=== PATIENT | female | born 1945 | race Caucasian/White ===

== ENCOUNTER 2020-05-29 08:44 | Outpatient (CLI) | payer MEDICARE, OTHER, SELFPAY ==
--- NOTE | ~2020-05-29 | MM_ITS ---
EXAMINATION: MM screening [facility] BI w kenrick HISTORY: Screening mammogram TECHNIQUE: Craniocaudal and mediolateral oblique 3-D tomosynthesis images were obtained and synthetic 2-D images were generated. CAD analysis was submitted and interpreted. COMPARISON: 03/11/2019, 02/05/2018, 10/15/2016 BREAST PARENCHYMAL COMPOSITION: There are scattered areas of fibroglandular density. FINDINGS: Scattered benign-appearing calcifications are present. There is no evidence of suspicious m ass, calcification, or architectural distortion to suggest malignancy in either breast. There has bee n no suspicious interval change. IMPRESSION: 1. No mammographic evidence of malignancy. 2. Recommend routine screening mammography in one year. BI-RADS Category 2: Benign finding(s). Reviewed, dictated and finalized at location A.
== END 2020-05-29 08:45 | disposition home or self-care (01) ==
PROVIDERS: PCP Internal Medicine; Visit Provider Internal Medicine
DX: Z12.31 Encounter for screening mammogram for malignant neoplasm of breast (principal)
CPT/HCPCS: 77063; 77067

== ENCOUNTER 2020-07-14 11:25 | Outpatient (CLI) | payer MEDICARE, SELFPAY ==
[2020-07-14 11:35] LABS: Basophils Absolute Auto 0.01 K/mm3 (0.00-0.10); Basophils Percent Auto 0.2 % (0.0-1.0); Eosinophils Absolute Auto 0.06 K/mm3 (0.02-0.50); Hematocrit 39.9 % (35.0-42.0); Hemoglobin 13.7 g/dL (11.7-13.8); Immature Granulocyte Absolute 0.02 K/mm3 (0.00-0.00); Immature Granulocyte Percent A 0.3 % (0.0-0.0); Lymphocytes Absolute Auto 1.72 K/mm3 (1.10-4.50); Lymphocytes Percent Auto 28.1 % (18.0-42.0); Mean Corpuscular HGB Conc 34.3 g/dL (32.0-36.0); Mean Corpuscular Hemoglobin 33.2 pg (27.0-31.0); Mean Corpuscular Volume 96.6 fL (78.0-102.0); Mean Platelet Volume 10.5 fl (9.2-11.8); Monocytes Absolute Auto 0.54 K/mm3 (0.10-0.90); Monocytes Percent Auto 8.8 % (2.0-11.0); Neutrophils Absolute Auto 3.8 K/mm3 (1.7-7.2); Neutrophils Percent Auto 61.6 % (50.0-70.0); Platelet Count Result 262 K/mm3 (150-420); Red Blood Count 4.13 M/mm3 (4.20-5.40); Red Cell Distribution Width 13.6 % (11.6-14.4); White Blood Count 6.1 K/mm3 (4.8-10.8)
[2020-07-14 12:43] LABS: Erythrocyte Sedimentation Rate 15 mm/hr (0-20)
[2020-07-14 12:50] LABS: Alanine Aminotransferase 53 U/L (14-59); Albumin Level 3.9 g/dL (3.4-5.0); Alkaline Phosphatase 65 U/L (46-116); Anion Gap 8 mmol/L (8-16); Aspartate Amino Transferase 31 U/L (15-37); Bilirubin,Total 0.5 mg/dL (0.00-1.00); Blood Urea Nitrogen 13 mg/dL (7-18); Calcium 8.9 mg/dL (8.5-10.1); Carbon Dioxide 31 mmol/L (21-32); Chloride 103 mmol/L (98-108); Estimated Glomerular Filt Rate > 60; Glucose 92 mg/dL (70-99); Osmolality Calculated 294 mOsm/kg (285-295); Potassium 3.8 mmol/L (3.5-5.1); Sodium 142 mmol/L (136-145); Total Protein 6.9 g/dL (6.4-8.2)
[2020-07-14 12:55] LABS: CRP < 0.2 mg/dL (0.0-0.9)
== END 2020-07-14 11:26 | disposition home or self-care (01) ==
LOC: CHSLAB 11:27
PROVIDERS: PCP Internal Medicine
DX: M06.09 Rheumatoid arthritis without rheumatoid factor, multiple sites (principal)
CPT/HCPCS: 36415; 80053; 85025; 85652; 86140

== ENCOUNTER 2020-08-23 09:55 | Outpatient (CLI) | payer MEDICARE, SELFPAY ==
[2020-08-23 10:08] LABS: Basophils Absolute Auto 0.01 K/mm3 (0.00-0.10); Basophils Percent Auto 0.2 % (0.0-1.0); Eosinophils Absolute Auto 0.08 K/mm3 (0.02-0.50); Eosinophils Percent Auto 1.7 % (1.0-6.0); Hematocrit 40.5 % (35.0-42.0); Hemoglobin 13.6 g/dL (11.7-13.8); Immature Granulocyte Absolute 0.02 K/mm3 (0.00-0.00); Immature Granulocyte Percent A 0.4 % (0.0-0.0); Lymphocytes Absolute Auto 1.79 K/mm3 (1.10-4.50); Mean Corpuscular HGB Conc 33.6 g/dL (32.0-36.0); Mean Corpuscular Hemoglobin 32.2 pg (27.0-31.0); Mean Platelet Volume 10.5 fl (9.2-11.8); Monocytes Absolute Auto 0.42 K/mm3 (0.10-0.90); Monocytes Percent Auto 8.7 % (2.0-11.0); Neutrophils Absolute Auto 2.5 K/mm3 (1.7-7.2); Platelet Count Result 255 K/mm3 (150-420); Red Blood Count 4.22 M/mm3 (4.20-5.40); Red Cell Distribution Width 12.7 % (11.6-14.4); White Blood Count 4.8 K/mm3 (4.8-10.8)
[2020-08-23 10:13] LABS: Add Urine Microscopic? NO; Appearance Urine Clear (Clear); Bilirubin Urine Negative (Negative); Blood Urine Negative (Negative); Color Urine Yellow (Yellow); Glucose Urine UA Negative (Negative); Ketones Urine Negative (Negative); Leukocyte Esterase Ur Negative LEU/UL (Negative); Nitrate Urine Negative (Negative); Protein Urine Negative (Negative); Urobilinogen Urine 0.2 mg/dL (0.2-1.0)
[2020-08-23 11:05] LABS: Alanine Aminotransferase 86 U/L (14-59); Albumin Level 4.2 g/dL (3.4-5.0); Alkaline Phosphatase 71 U/L (46-116); Anion Gap 11 mmol/L (8-16); Aspartate Amino Transferase 42 U/L (15-37); Bilirubin,Total 0.7 mg/dL (0.00-1.00); Blood Urea Nitrogen 8 mg/dL (7-18); Carbon Dioxide 28 mmol/L (21-32); Chloride 105 mmol/L (98-108); Estimated Glomerular Filt Rate > 60; Glucose 95 mg/dL (70-99); Osmolality Calculated 296 mOsm/kg (285-295); Potassium 3.9 mmol/L (3.5-5.1); Sodium 144 mmol/L (136-145)
== END 2020-08-23 09:56 | disposition home or self-care (01) ==
LOC: CHSLAB 09:59
PROVIDERS: PCP Internal Medicine
DX: M06.09 Rheumatoid arthritis without rheumatoid factor, multiple sites (principal); Z79.899 Other long term (current) drug therapy; Z51.81 Encounter for therapeutic drug level monitoring
CPT/HCPCS: 36415; 80053; 81003; 85025

== ENCOUNTER 2020-09-13 10:35 | Outpatient (CLI) | payer MEDICARE, SELFPAY ==
[2020-09-13 10:50] LABS: Add Urine Microscopic? NO; Appearance Urine Clear (Clear); Basophils Absolute Auto 0.02 K/mm3 (0.00-0.10); Basophils Percent Auto 0.4 % (0.0-1.0); Bilirubin Urine Negative (Negative); Blood Urine Negative (Negative); Color Urine Yellow (Yellow); Eosinophils Absolute Auto 0.09 K/mm3 (0.02-0.50); Eosinophils Percent Auto 1.8 % (1.0-6.0); Glucose Urine UA Negative (Negative); Hematocrit 41.2 % (35.0-42.0); Immature Granulocyte Absolute 0.01 K/mm3 (0.00-0.00); Immature Granulocyte Percent A 0.2 % (0.0-0.0); Ketones Urine Negative (Negative); Leukocyte Esterase Ur Negative LEU/UL (Negative); Lymphocytes Absolute Auto 1.83 K/mm3 (1.10-4.50); Lymphocytes Percent Auto 37.2 % (18.0-42.0); Mean Corpuscular Hemoglobin 32.7 pg (27.0-31.0); Mean Corpuscular Volume 96.3 fL (78.0-102.0); Mean Platelet Volume 11.3 fl (9.2-11.8); Monocytes Absolute Auto 0.45 K/mm3 (0.10-0.90); Monocytes Percent Auto 9.1 % (2.0-11.0); Neutrophils Absolute Auto 2.5 K/mm3 (1.7-7.2); Neutrophils Percent Auto 51.3 % (50.0-70.0); Nitrate Urine Negative (Negative); Platelet Count Result 231 K/mm3 (150-420); Protein Urine Negative (Negative); Red Blood Count 4.28 M/mm3 (4.20-5.40); Red Cell Distribution Width 12.6 % (11.6-14.4); Specific Grav Ur 1.025 (1.010-1.020); Urobilinogen Urine 0.2 mg/dL (0.2-1.0); White Blood Count 4.9 K/mm3 (4.8-10.8)
[2020-09-13 11:59] LABS: Alanine Aminotransferase 39 U/L (14-59); Albumin Level 3.9 g/dL (3.4-5.0); Alkaline Phosphatase 73 U/L (46-116); Anion Gap 10 mmol/L (8-16); Aspartate Amino Transferase 25 U/L (15-37); Bilirubin,Total 0.6 mg/dL (0.00-1.00); Blood Urea Nitrogen 12 mg/dL (7-18); Carbon Dioxide 28 mmol/L (21-32); Chloride 106 mmol/L (98-108); Estimated Glomerular Filt Rate > 60; Glucose 92 mg/dL (70-99); Osmolality Calculated 297 mOsm/kg (285-295); Sodium 144 mmol/L (136-145); Total Protein 6.9 g/dL (6.4-8.2)
== END 2020-09-13 10:36 | disposition home or self-care (01) ==
LOC: CHSLAB 10:38
PROVIDERS: PCP Internal Medicine
DX: M06.09 Rheumatoid arthritis without rheumatoid factor, multiple sites (principal); Z79.899 Other long term (current) drug therapy; Z51.81 Encounter for therapeutic drug level monitoring
CPT/HCPCS: 36415; 80053; 81003; 85025

== ENCOUNTER 2020-09-19 09:39 | Outpatient (CLI) | payer MEDICARE, SELFPAY ==
[2020-09-19 11:16] LABS: Alanine Aminotransferase 36 U/L (14-59); Albumin Level 3.8 g/dL (3.4-5.0); Alkaline Phosphatase 71 U/L (46-116); Anion Gap 8 mmol/L (8-16); Aspartate Amino Transferase 17 U/L (15-37); Bilirubin,Total 0.6 mg/dL (0.00-1.00); Blood Urea Nitrogen 15 mg/dL (7-18); Carbon Dioxide 31 mmol/L (21-32); Chloride 105 mmol/L (98-108); Estimated Glomerular Filt Rate > 60; Glucose 131 mg/dL (70-99); Osmolality Calculated 300 mOsm/kg (285-295); Potassium 3.8 mmol/L (3.5-5.1); Sodium 144 mmol/L (136-145); Total Protein 6.7 g/dL (6.4-8.2)
== END 2020-09-19 09:40 | disposition home or self-care (01) ==
LOC: CHSLAB 09:42
PROVIDERS: PCP Internal Medicine
DX: M05.09 Felty's syndrome, multiple sites (principal); Z79.899 Other long term (current) drug therapy; Z51.81 Encounter for therapeutic drug level monitoring
CPT/HCPCS: 36415; 80053

== ENCOUNTER 2020-10-10 09:26 | Outpatient (CLI) | payer MEDICARE, SELFPAY ==
[2020-10-11 14:04] LABS: SARS-CoV-2 RNA PCR Positive
== END 2020-10-10 09:27 | disposition home or self-care (01) ==
LOC: CHSLAB 09:29
PROVIDERS: PCP Internal Medicine; Visit Provider Internal Medicine
DX: U07.1 COVID-19 (principal)
CPT/HCPCS: 87635; C9803; U0003

== ENCOUNTER 2020-10-26 06:27 | Outpatient (CLI) | payer MEDICARE, SELFPAY ==
[2020-10-27 19:10] LABS: SARS-CoV-2 RNA PCR Positive
== END 2020-10-26 06:28 | disposition home or self-care (01) ==
LOC: CHSLAB 06:29
PROVIDERS: PCP Internal Medicine; Visit Provider Internal Medicine
DX: U07.1 COVID-19 (principal)
CPT/HCPCS: 87635; C9803; U0003

== ENCOUNTER 2020-12-06 08:34 | Outpatient (CLI) | payer MEDICARE, SELFPAY ==
[2020-12-07 22:47] LABS: SARS-CoV-2 RNA PCR Negative
== END 2020-12-06 08:35 | disposition home or self-care (01) ==
LOC: CHSLAB 08:40
PROVIDERS: PCP Internal Medicine; Visit Provider Internal Medicine
DX: U07.1 COVID-19 (principal)
CPT/HCPCS: 36415; 86769; C9803; U0003; U0005

== ENCOUNTER 2021-01-08 09:24 | Outpatient (CLI) | payer MEDICARE, SELFPAY ==
[2021-01-08 09:42] LABS: Basophils Absolute Auto 0.02 K/mm3 (0.00-0.10); Basophils Percent Auto 0.4 % (0.0-1.0); Eosinophils Absolute Auto 0.09 K/mm3 (0.02-0.50); Eosinophils Percent Auto 1.6 % (1.0-6.0); Hematocrit 41.2 % (35.0-42.0); Hemoglobin 13.8 g/dL (11.7-13.8); Immature Granulocyte Absolute 0.01 K/mm3 (0.00-0.00); Immature Granulocyte Percent A 0.2 % (0.0-0.0); Lymphocytes Absolute Auto 1.73 K/mm3 (1.10-4.50); Lymphocytes Percent Auto 31.6 % (18.0-42.0); Mean Corpuscular HGB Conc 33.5 g/dL (32.0-36.0); Mean Corpuscular Hemoglobin 30.7 pg (27.0-31.0); Mean Corpuscular Volume 91.6 fL (78.0-102.0); Mean Platelet Volume 10.7 fl (9.2-11.8); Monocytes Absolute Auto 0.42 K/mm3 (0.10-0.90); Monocytes Percent Auto 7.7 % (2.0-11.0); Neutrophils Absolute Auto 3.2 K/mm3 (1.7-7.2); Neutrophils Percent Auto 58.5 % (50.0-70.0); Platelet Count Result 225 K/mm3 (150-420); Red Cell Distribution Width 12.7 % (11.6-14.4); White Blood Count 5.5 K/mm3 (4.8-10.8)
[2021-01-08 09:43] LABS: Add Urine Microscopic? NO; Appearance Urine Clear (Clear); Bilirubin Urine Negative (Negative); Blood Urine Negative (Negative); Color Urine Yellow (Yellow); Glucose Urine UA Negative (Negative); Ketones Urine Negative (Negative); Leukocyte Esterase Ur Negative LEU/UL (Negative); Nitrate Urine Negative (Negative); Protein Urine Negative (Negative); Urobilinogen Urine 0.2 mg/dL (0.2-1.0)
[2021-01-08 10:58] LABS: Alanine Aminotransferase 33 U/L (14-59); Albumin Level 3.7 g/dL (3.4-5.0); Alkaline Phosphatase 78 U/L (46-116); Anion Gap 8 mmol/L (8-16); Aspartate Amino Transferase 17 U/L (15-37); Bilirubin,Total 0.5 mg/dL (0.00-1.00); Blood Urea Nitrogen 14 mg/dL (7-18); Calcium 8.9 mg/dL (8.5-10.1); Carbon Dioxide 31 mmol/L (21-32); Chloride 104 mmol/L (98-108); Estimated Glomerular Filt Rate > 60; Glucose 106 mg/dL (70-99); Osmolality Calculated 296 mOsm/kg (285-295); Potassium 3.9 mmol/L (3.5-5.1); Sodium 143 mmol/L (136-145)
== END 2021-01-08 09:25 | disposition home or self-care (01) ==
LOC: CHSLAB 09:27
PROVIDERS: PCP Internal Medicine
DX: Z79.899 Other long term (current) drug therapy (principal); M06.09 Rheumatoid arthritis without rheumatoid factor, multiple sites
CPT/HCPCS: 36415; 80053; 81003; 85025

== ENCOUNTER 2021-02-16 11:38 | Outpatient (CLI) | payer MEDICARE, SELFPAY ==
[2021-02-16 11:58] LABS: Basophils Absolute Auto 0.02 K/mm3 (0.00-0.10); Basophils Percent Auto 0.3 % (0.0-1.0); Eosinophils Absolute Auto 0.11 K/mm3 (0.02-0.50); Eosinophils Percent Auto 1.8 % (1.0-6.0); Hematocrit 39.2 % (35.0-42.0); Hemoglobin 13.1 g/dL (11.7-13.8); Immature Granulocyte Absolute 0.01 K/mm3 (0.00-0.00); Immature Granulocyte Percent A 0.2 % (0.0-0.0); Lymphocytes Absolute Auto 1.99 K/mm3 (1.10-4.50); Lymphocytes Percent Auto 33.4 % (18.0-42.0); Mean Corpuscular HGB Conc 33.4 g/dL (32.0-36.0); Mean Corpuscular Volume 92.9 fL (78.0-102.0); Mean Platelet Volume 10.9 fl (9.2-11.8); Monocytes Absolute Auto 0.44 K/mm3 (0.10-0.90); Monocytes Percent Auto 7.4 % (2.0-11.0); Neutrophils Absolute Auto 3.4 K/mm3 (1.7-7.2); Neutrophils Percent Auto 56.9 % (50.0-70.0); Platelet Count Result 269 K/mm3 (150-420); Red Blood Count 4.22 M/mm3 (4.20-5.40)
[2021-02-16 12:30] LABS: Add Urine Microscopic? NO; Appearance Urine Clear (Clear); Bilirubin Urine Negative (Negative); Blood Urine Negative (Negative); Color Urine Yellow (Yellow); Glucose Urine UA Negative (Negative); Ketones Urine Negative (Negative); Leukocyte Esterase Ur Negative (Negative); Nitrate Urine Negative (Negative); Protein Urine Negative (Negative); Specific Grav Ur <= 1.005 (1.010-1.020); Urobilinogen Urine 0.2 mg/dL (0.2-1.0)
[2021-02-16 12:34] LABS: Alanine Aminotransferase 27 U/L (14-59); Albumin Level 3.8 g/dL (3.4-5.0); Alkaline Phosphatase 81 U/L (46-116); Anion Gap 8 mmol/L (8-16); Aspartate Amino Transferase 19 U/L (15-37); Bilirubin,Total 0.5 mg/dL (0.00-1.00); Blood Urea Nitrogen 15 mg/dL (7-18); Calcium 9.1 mg/dL (8.5-10.1); Carbon Dioxide 31 mmol/L (21-32); Chloride 103 mmol/L (98-108); Estimated Glomerular Filt Rate > 60; Glucose 93 mg/dL (70-99); Osmolality Calculated 294 mOsm/kg (285-295); Sodium 142 mmol/L (136-145); Total Protein 7.1 g/dL (6.4-8.2)
[2021-02-19 13:42] LABS: NIL 0.02; Quantiferon TB Plus, 1T NEGATIVE
== END 2021-02-16 11:39 | disposition home or self-care (01) ==
LOC: CHSLAB 11:44
PROVIDERS: PCP Internal Medicine
DX: M06.09 Rheumatoid arthritis without rheumatoid factor, multiple sites (principal); Z51.81 Encounter for therapeutic drug level monitoring; Z79.899 Other long term (current) drug therapy; M48.062 Spinal stenosis, lumbar region with neurogenic claudication
CPT/HCPCS: 36415; 80053; 81003; 85025; 86480; 87086; 87088

== ENCOUNTER 2021-05-30 09:03 | Outpatient (CLI) | payer MEDICARE, SELFPAY ==
[2021-05-30 09:25] LABS: Basophils Absolute Auto 0.03 K/mm3 (0.00-0.10); Basophils Percent Auto 0.6 % (0.0-1.0); Eosinophils Percent Auto 1.9 % (1.0-6.0); Hematocrit 40.4 % (35.0-42.0); Hemoglobin 13.5 g/dL (11.7-13.8); Immature Granulocyte Absolute 0.01 K/mm3 (0.00-0.00); Immature Granulocyte Percent A 0.2 % (0.0-0.0); Lymphocytes Absolute Auto 1.92 K/mm3 (1.10-4.50); Lymphocytes Percent Auto 35.7 % (18.0-42.0); Mean Corpuscular HGB Conc 33.4 g/dL (32.0-36.0); Mean Corpuscular Hemoglobin 31.3 pg (27.0-31.0); Mean Corpuscular Volume 93.7 fL (78.0-102.0); Mean Platelet Volume 11.1 fl (9.2-11.8); Monocytes Absolute Auto 0.36 K/mm3 (0.10-0.90); Monocytes Percent Auto 6.7 % (2.0-11.0); Neutrophils Percent Auto 54.9 % (50.0-70.0); Platelet Count Result 248 K/mm3 (150-420); Red Blood Count 4.31 M/mm3 (4.20-5.40); Red Cell Distribution Width 13.5 % (11.6-14.4); White Blood Count 5.4 K/mm3 (4.8-10.8)
[2021-05-30 09:26] LABS: Add Urine Microscopic? NO; Appearance Urine Clear (Clear); Bilirubin Urine Negative (Negative); Blood Urine Negative (Negative); Color Urine Yellow (Yellow); Glucose Urine UA Negative (Negative); Ketones Urine Negative (Negative); Leukocyte Esterase Ur Negative (Negative); Nitrate Urine Negative (Negative); Protein Urine Negative (Negative); Specific Grav Ur 1.025 (1.010-1.020); Urobilinogen Urine 0.2 mg/dL (0.2-1.0)
[2021-05-30 10:13] LABS: Alanine Aminotransferase 62 U/L (14-59); Alkaline Phosphatase 76 U/L (46-116); Anion Gap 11 mmol/L (8-16); Aspartate Amino Transferase 39 U/L (15-37); Bilirubin,Total 0.5 mg/dL (0.00-1.00); Blood Urea Nitrogen 15 mg/dL (7-18); Calcium 9.4 mg/dL (8.5-10.1); Carbon Dioxide 30 mmol/L (21-32); Chloride 105 mmol/L (98-108); Cholesterol 153 mg/dL (0-200); Estimated Glomerular Filt Rate > 60; Free T3 2.87 pg/mL (2.18-3.98); Free T4 Free Thyroxine 1.11 ng/dL (0.76-1.46); Glucose 92 mg/dL (70-99); HDL Direct 57 mg/dL (40-60); LDL Cholesterol Calculated 82 mg/dL (<130); Osmolality Calculated 302 mOsm/kg (285-295); Potassium 4.2 mmol/L (3.5-5.1); Sodium 146 mmol/L (136-145); Thyroid Stimulating Hormone 1.76 uIU/mL (0.36-3.74); Total Protein 6.8 g/dL (6.4-8.2); Triglycerides 70 mg/dL (0-150)
[2021-06-02 10:20] LABS: Vitamin D 25 Hydroxy 23 ng/mL (30-100)
== END 2021-05-30 09:04 | disposition home or self-care (01) ==
LOC: CHSLAB 09:06
PROVIDERS: PCP Internal Medicine; Visit Provider Internal Medicine
DX: E03.4 Atrophy of thyroid (acquired) (principal); M06.9 Rheumatoid arthritis, unspecified; E78.2 Mixed hyperlipidemia; E55.9 Vitamin D deficiency, unspecified; M81.0 Age-related osteoporosis without current pathological fracture; I10 Essential (primary) hypertension
CPT/HCPCS: 36415; 80053; 80061; 81003; 82306; 84439; 84443; 84481; 85025

== ENCOUNTER 2021-06-04 09:24 | Outpatient (CLI) | payer MEDICARE, SELFPAY ==
--- NOTE | ~2021-06-04 | MM_ITS ---
EXAMINATION: MM screening [facility] BI w kenrick HISTORY: Screening mammogram TECHNIQUE: Craniocaudal and mediolateral oblique 3-D tomosynthesis images were obtained and synthetic 2-D images were generated. CAD analysis was submitted and interpreted. COMPARISON: 05/29/2020, 03/11/2019, 02/05/2018 BREAST PARENCHYMAL COMPOSITION: There are scattered areas of fibroglandular density. FINDINGS: Scattered benign-appearing calcifications are present. There is no evidence of suspicious m ass, calcification, or architectural distortion to suggest malignancy in either breast. There has bee n no suspicious interval change. IMPRESSION: 1. No mammographic evidence of malignancy. 2. Recommend routine screening mammography in one year. BI-RADS Category 2: Benign finding(s). Reviewed, dictated and finalized at location A.
== END 2021-06-04 09:25 | disposition home or self-care (01) ==
LOC: CHSIMG 09:24
PROVIDERS: PCP Internal Medicine; Visit Provider Internal Medicine
DX: Z12.31 Encounter for screening mammogram for malignant neoplasm of breast (principal)
CPT/HCPCS: 77063; 77067

== ENCOUNTER 2021-07-03 08:43 | Outpatient (CLI) | payer MEDICARE, SELFPAY ==
--- NOTE | 2021-08-06 09:13 | P.PCNHOL_ITS ---
Holter/Event Monitor Holter/Event Monitor Date of procedure: 07/05/21 Holter/Event Procedure: Event Monitor Indications: Palpitations Conclusion: 1. Symptoms activated only event monitor between 07/05/21-08/03/21. There are 17 available transmissions for analysis. 2. 6 of the 17 transmissions show sinus rhythm, HR range 55-75 bpm. 3. 11 of the 17 transmissions show atrial flutter/tachycardia with HR range 80- 130 bpm. 4. No significant pauses in available transmissions. 5. Patient reports symptoms of lightheadedness, heart racing, skipped beats and symptoms other than listed.
== END 2021-07-03 08:44 | disposition home or self-care (01) ==
PROVIDERS: PCP Internal Medicine; Visit Provider Internal Medicine
DX: R00.0 Tachycardia, unspecified (principal); R00.2 Palpitations
CPT/HCPCS: 99199

== ENCOUNTER 2021-08-30 10:00 | Outpatient (RCR) | payer MEDICARE, SELFPAY ==
[2021-05-25 12:58] LABS: Add Urine Microscopic? NO; Appearance Urine Clear (Clear); Bilirubin Urine Negative (Negative); Blood Urine Negative (Negative); Color Urine Yellow (Yellow); Glucose Urine UA Negative (Negative); Ketones Urine Negative (Negative); Leukocyte Esterase Ur Negative LEU/UL (Negative); Nitrate Urine Negative (Negative); Protein Urine Negative (Negative); Specific Grav Ur >= 1.030 (1.010-1.020); Urobilinogen Urine 0.2 mg/dL (0.2-1.0); pH Urine 5.5 (5.0-8.0)
[2021-05-25 13:08] LABS: Basophils Absolute Auto 0.02 K/mm3 (0.00-0.10); Basophils Percent Auto 0.4 % (0.0-1.0); Eosinophils Absolute Auto 0.11 K/mm3 (0.02-0.50); Eosinophils Percent Auto 1.9 % (1.0-6.0); Hematocrit 40.5 % (35.0-42.0); Hemoglobin 13.8 g/dL (11.7-13.8); Immature Granulocyte Absolute 0.01 K/mm3 (0.00-0.00); Immature Granulocyte Percent A 0.2 % (0.0-0.0); Lymphocytes Absolute Auto 2.44 K/mm3 (1.10-4.50); Lymphocytes Percent Auto 42.8 % (18.0-42.0); Mean Corpuscular HGB Conc 34.1 g/dL (32.0-36.0); Mean Platelet Volume 11.3 fl (9.2-11.8); Monocytes Absolute Auto 0.54 K/mm3 (0.10-0.90); Monocytes Percent Auto 9.5 % (2.0-11.0); Neutrophils Absolute Auto 2.6 K/mm3 (1.7-7.2); Neutrophils Percent Auto 45.2 % (50.0-70.0); Platelet Count Result 256 K/mm3 (150-420); Red Blood Count 4.31 M/mm3 (4.20-5.40); Red Cell Distribution Width 13.9 % (11.6-14.4); White Blood Count 5.7 K/mm3 (4.8-10.8)
[2021-05-25 13:28] LABS: Alanine Aminotransferase 39 U/L (14-59); Albumin Level 3.9 g/dL (3.4-5.0); Alkaline Phosphatase 82 U/L (46-116); Anion Gap 10 mmol/L (8-16); Aspartate Amino Transferase 16 U/L (15-37); Bilirubin,Total 0.4 mg/dL (0.00-1.00); Blood Urea Nitrogen 20 mg/dL (7-18); Calcium 9.2 mg/dL (8.5-10.1); Carbon Dioxide 30 mmol/L (21-32); Chloride 106 mmol/L (98-108); Estimated Glomerular Filt Rate > 60; Glucose 109 mg/dL (70-99); Osmolality Calculated 305 mOsm/kg (285-295); Potassium 3.9 mmol/L (3.5-5.1); Sodium 146 mmol/L (136-145); Total Protein 6.9 g/dL (6.4-8.2)
[2021-07-27 09:02] LABS: Basophils Absolute Auto 0.02 K/mm3 (0.00-0.10); Basophils Percent Auto 0.3 % (0.0-1.0); Eosinophils Absolute Auto 0.06 K/mm3 (0.02-0.50); Eosinophils Percent Auto 0.9 % (1.0-6.0); Hematocrit 39.2 % (35.0-42.0); Hemoglobin 13.2 g/dL (11.7-13.8); Immature Granulocyte Absolute 0.02 K/mm3 (0.00-0.00); Immature Granulocyte Percent A 0.3 % (0.0-0.0); Lymphocytes Absolute Auto 2.03 K/mm3 (1.10-4.50); Mean Corpuscular HGB Conc 33.7 g/dL (32.0-36.0); Mean Corpuscular Volume 95.1 fL (78.0-102.0); Mean Platelet Volume 10.8 fl (9.2-11.8); Monocytes Absolute Auto 0.48 K/mm3 (0.10-0.90); Monocytes Percent Auto 6.9 % (2.0-11.0); Neutrophils Absolute Auto 4.4 K/mm3 (1.7-7.2); Neutrophils Percent Auto 62.6 % (50.0-70.0); Platelet Count Result 259 K/mm3 (150-420); Red Blood Count 4.12 M/mm3 (4.20-5.40)
[2021-08-02 07:21] LABS: NIL 0.03 IU/mL
[2021-08-02 07:22] LABS: Quantiferon TB Plus, 1T NEGATIVE; TB2-NIL 0.01 IU/mL
[2021-08-30 13:42] LABS: Add Urine Microscopic? NO; Appearance Urine Clear (Clear); Bilirubin Urine Negative (Negative); Blood Urine Negative (Negative); Color Urine Light Yellow (Yellow); Glucose Urine UA Negative (Negative); Ketones Urine Negative (Negative); Leukocyte Esterase Ur Negative LEU/UL (Negative); Nitrate Urine Negative (Negative); Protein Urine Negative (Negative); Urobilinogen Urine 0.2 mg/dL (0.2-1.0)
[2021-08-30 14:07] LABS: Alanine Aminotransferase 103 U/L (14-59); Albumin Level 3.9 g/dL (3.4-5.0); Alkaline Phosphatase 84 U/L (46-116); Anion Gap 11 mmol/L (8-16); Aspartate Amino Transferase 45 U/L (15-37); Bilirubin,Total 0.6 mg/dL (0.00-1.00); Blood Urea Nitrogen 16 mg/dL (7-18); Carbon Dioxide 29 mmol/L (21-32); Chloride 105 mmol/L (98-108); Estimated Glomerular Filt Rate > 60; Glucose 110 mg/dL (70-99); Osmolality Calculated 302 mOsm/kg (285-295); Potassium 3.8 mmol/L (3.5-5.1); Sodium 145 mmol/L (136-145); Total Protein 6.7 g/dL (6.4-8.2)
== END 2021-08-31 00:01 | disposition home or self-care (01) ==
LOC: CHSLAB 10:00
PROVIDERS: PCP Internal Medicine; Visit Provider Internal Medicine
DX: M06.09 Rheumatoid arthritis without rheumatoid factor, multiple sites (principal); Z79.899 Other long term (current) drug therapy; Z51.81 Encounter for therapeutic drug level monitoring
CPT/HCPCS: 36415; 80053; 81003; 85025; 86480

== ENCOUNTER 2021-09-13 09:47 | Outpatient (CLI) | payer MEDICARE, SELFPAY ==
[2021-09-13 10:02] LABS: Basophils Absolute Auto 0.03 K/mm3 (0.00-0.10); Basophils Percent Auto 0.7 % (0.0-1.0); Eosinophils Absolute Auto 0.05 K/mm3 (0.02-0.50); Eosinophils Percent Auto 1.2 % (1.0-6.0); Hemoglobin 13.3 g/dL (11.7-13.8); Immature Granulocyte Absolute 0.02 K/mm3 (0.00-0.00); Immature Granulocyte Percent A 0.5 % (0.0-0.0); Lymphocytes Absolute Auto 1.43 K/mm3 (1.10-4.50); Lymphocytes Percent Auto 34.3 % (18.0-42.0); Mean Corpuscular HGB Conc 33.3 g/dL (32.0-36.0); Mean Corpuscular Hemoglobin 31.8 pg (27.0-31.0); Mean Corpuscular Volume 95.7 fL (78.0-102.0); Mean Platelet Volume 10.8 fl (9.2-11.8); Monocytes Absolute Auto 0.49 K/mm3 (0.10-0.90); Monocytes Percent Auto 11.8 % (2.0-11.0); Neutrophils Absolute Auto 2.2 K/mm3 (1.7-7.2); Neutrophils Percent Auto 51.5 % (50.0-70.0); Platelet Count Result 216 K/mm3 (150-420); Red Blood Count 4.18 M/mm3 (4.20-5.40); Red Cell Distribution Width 13.8 % (11.6-14.4); White Blood Count 4.2 K/mm3 (4.8-10.8)
[2021-09-13 10:37] LABS: Alanine Aminotransferase 40 U/L (14-59); Albumin Level 3.7 g/dL (3.4-5.0); Alkaline Phosphatase 84 U/L (46-116); Anion Gap 9 mmol/L (8-16); Aspartate Amino Transferase 21 U/L (15-37); Bilirubin,Total 0.5 mg/dL (0.00-1.00); Blood Urea Nitrogen 15 mg/dL (7-18); Calcium 8.4 mg/dL (8.5-10.1); Carbon Dioxide 27 mmol/L (21-32); Chloride 107 mmol/L (98-108); Estimated Glomerular Filt Rate > 60; Glucose 103 mg/dL (70-99); Osmolality Calculated 296 mOsm/kg (285-295); Sodium 143 mmol/L (136-145); Total Protein 6.8 g/dL (6.4-8.2)
== END 2021-09-13 09:48 | disposition home or self-care (01) ==
LOC: CHSLAB 09:51
PROVIDERS: PCP Internal Medicine
DX: M06.09 Rheumatoid arthritis without rheumatoid factor, multiple sites (principal); Z79.899 Other long term (current) drug therapy
CPT/HCPCS: 36415; 80053; 85025

== ENCOUNTER 2021-09-21 11:07 | Outpatient (CLI) | payer MEDICARE, SELFPAY ==
[2021-09-21 13:21] LABS: SARS-CoV-2 RNA PCR Negative (Negative)
== END 2021-09-21 11:08 | disposition home or self-care (01) ==
LOC: CHSLAB 11:08
PROVIDERS: PCP Internal Medicine; Visit Provider Internal Medicine
DX: Z20.822 Contact with and (suspected) exposure to COVID-19 (principal)
CPT/HCPCS: C9803; U0003; U0005

== ENCOUNTER 2021-10-08 14:37 | Outpatient (CLI) | payer MEDICARE, SELFPAY ==
[2021-10-08 14:52] LABS: Basophils Absolute Auto 0.01 K/mm3 (0.00-0.10); Basophils Percent Auto 0.2 % (0.0-1.0); Eosinophils Absolute Auto 0.04 K/mm3 (0.02-0.50); Eosinophils Percent Auto 0.7 % (1.0-6.0); Hematocrit 39.2 % (35.0-42.0); Hemoglobin 13.4 g/dL (11.7-13.8); Lymphocytes Absolute Auto 2.66 K/mm3 (1.10-4.50); Lymphocytes Percent Auto 46.4 % (18.0-42.0); Mean Corpuscular HGB Conc 34.2 g/dL (32.0-36.0); Mean Corpuscular Hemoglobin 32.4 pg (27.0-31.0); Mean Corpuscular Volume 94.9 fL (78.0-102.0); Mean Platelet Volume 10.8 fl (9.2-11.8); Monocytes Absolute Auto 0.47 K/mm3 (0.10-0.90); Monocytes Percent Auto 8.2 % (2.0-11.0); Neutrophils Absolute Auto 2.6 K/mm3 (1.7-7.2); Neutrophils Percent Auto 44.5 % (50.0-70.0); Platelet Count Result 281 K/mm3 (150-420); Red Blood Count 4.13 M/mm3 (4.20-5.40); White Blood Count 5.7 K/mm3 (4.8-10.8)
[2021-10-08 14:55] LABS: Appearance Urine Clear (Clear); Bilirubin Urine Negative (Negative); Color Urine Light Yellow (Yellow); Glucose Urine UA Negative (Negative); Ketones Urine Negative (Negative); Leukocyte Esterase Ur Negative (Negative); Nitrate Urine Negative (Negative); Protein Urine Negative (Negative); Specific Grav Ur 1.015 (1.010-1.020); Urobilinogen Urine 0.2 mg/dL (0.2-1.0)
[2021-10-08 15:23] LABS: Add Urine Microscopic? YES; Bacteria Urine 1+ /hpf; Blood Urine Trace-Intact (Negative); RBC Urine 0-2 /hpf (0-2); Squamous Epithelial Cell Urine Few /hpf (Few); WBC Urine 0-3 /hpf (0-3)
[2021-10-08 16:54] LABS: Alanine Aminotransferase 31 U/L (14-59); Albumin Level 3.8 g/dL (3.4-5.0); Alkaline Phosphatase 98 U/L (46-116); Anion Gap 9 mmol/L (8-16); Aspartate Amino Transferase 23 U/L (15-37); Bilirubin,Total 0.4 mg/dL (0.00-1.00); Blood Urea Nitrogen 15 mg/dL (7-18); Calcium 8.9 mg/dL (8.5-10.1); Carbon Dioxide 27 mmol/L (21-32); Chloride 105 mmol/L (98-108); Estimated Glomerular Filt Rate > 60; Glucose 89 mg/dL (70-99); Osmolality Calculated 291 mOsm/kg (285-295); Potassium 4.1 mmol/L (3.5-5.1); Sodium 141 mmol/L (136-145)
== END 2021-10-08 14:38 | disposition home or self-care (01) ==
LOC: CHSLAB 14:43
PROVIDERS: PCP Internal Medicine; Visit Provider Internal Medicine
DX: M06.09 Rheumatoid arthritis without rheumatoid factor, multiple sites (principal); Z79.899 Other long term (current) drug therapy; Z51.81 Encounter for therapeutic drug level monitoring
CPT/HCPCS: 36415; 80053; 81001; 85025; 87086

== ENCOUNTER 2021-10-18 15:21 | Emergency (ER) | payer MEDICARE, OTHER, SELFPAY ==
--- NOTE | ~2021-10-18 | CT_ITS ---
EXAMINATION: CT BRAIN W/O DATE: 10/18/2021 16:10 INDICATION: Headache after trauma. TECHNIQUE: Computed tomography (CT) of the head was performed without intravenous contrast. The dose- length product was 605.33 mGy-cm. Automated exposure control and iterative reconstruction technique w ere employed. COMPARISON: No prior studies for comparison. FINDINGS: Normal brain parenchymal volume for age. Normal ramirez-white differentiation. No acute intrac ranial hemorrhage, infarction, mass or mass effect. There are scattered mild periventricular and subc ortical white matter changes, most likely related to small vessel ischemic disease (microangiopathy). No ventriculomegaly or midline shift. Midline sagittal images demonstrate a normal corpus callosum, c raniovertebral junction and sella turcica. Basilar cisterns are patent. There is mucosal thickening of the left maxillary ethmoid sinuses. IMPRESSION: 1. No acute intracranial abnormality. 2: Sinusitis Reviewed, dictated and finalized at location A. CTOR OF PRODUCT DESIGN
--- NOTE | ~2021-10-18 | XR_ITS ---
XR hand RT min 3V 10/18/2021 16:11 Indication: Right hand pain Procedure: 3 views right hand Comparison: No prior studies for comparison. Findings: There is a nondisplaced fracture proximal aspect of the fifth metacarpal without intra-mary cular extension. There is mild-moderate polyarticular osteoarthritis. No foreign bodies. Impression: 1: Nondisplaced extra-articular fracture proximal aspect of the right fifth metacarpal. Reviewed, dictated and finalized at location A. ER NET Impression: 1: Nondisplaced extra-articular fracture proximal aspect of the right fifth met acarpal.
--- NOTE | ~2021-10-18 | XR_ITS ---
XR knee RT 2V 10/18/2021 16:11 Indication: Right knee pain Procedure: 2 views right knee Comparison: No prior studies for comparison. Findings: There is moderate tricompartment osteoarthritis of the right knee. No significant joint eff usion. No fracture, subluxation or dislocation. No focal soft tissue abnormality. No foreign bodies. Impression: 1: No acute fracture. Reviewed, dictated and finalized at location A. EM SPECIALIST Impression: 1: No acute fracture.
[2021-10-18 15:30] VITALS: BP 154/87; PULSE 71; RESP 20; TEMP 36.5; O2SAT 97
--- NOTE | 2021-10-18 15:43 | ED.GENADULT ---
HPI - General Adult General Chief complaint: Fall Stated complaint: fell on face, hand and head Source: patient and family Mode of arrival: ambulatory History of Present Illness HPI narrative: [place] presented to the ED after a fall. She was chasing a cat and got her left foot caught up on a hammock stand and fell foreward onto her right knee, wrist and face. She hit her head but did not lose consciousness. No LOC, nausea, vomiting, neck pain or other injuries reported. Related Data Home Medications Medication Instructions Recorded Confirmed apixaban [Eliquis] 5 mg PO DAILY 10/18/21 10/18/21 carvedilol 25 mg PO DAILY 10/18/21 10/18/21 levothyroxine 88 mcg PO DAILY 10/18/21 10/18/21 losartan-hydrochlorothiazide 1 tablet PO DAILY 10/18/21 10/18/21 methotrexate sodium 2.5 mg PO DAILY 10/18/21 10/18/21 montelukast 10 mg PO DAILY 10/18/21 10/18/21 nifedipine 30 mg PO DAILY 10/18/21 10/18/21 simvastatin 5 mg PO DAILY 10/18/21 10/18/21 tizanidine 2 mg PO DAILY 10/18/21 10/18/21 upadacitinib [Rinvoq] 15 mg PO DAILY 10/18/21 10/18/21 Allergies Allergy/AdvReac Type Severity Reaction Status Date / Time No Known Allergies Allergy Verified 10/18/21 15:43 Review of Systems Constitutional: Constitutional: Reports no additional constitutional complaints Eyes: Eyes: Reports no additional eye complaints ENT: Reports system reviewed and no additional complaints, except as documented Cardiovascular: Cardiovascular: Reports no additional cardiovascular complaints Respiratory: Respiratory: Reports no additional respiratory complaints Gastrointestinal: Gastrointestinal: Reports no additional gastrointestinal complaints Genitourinary: Genitourinary: Reports no additional female genitourinary complaints Musculoskeletal: Musculoskeletal: Reports as per HPI Integumentary/Breasts: Skin/Breast: Reports system reviewed and no additional complaints, except as docu Neurologic: Reports system reviewed and no additional complaints, except as documented Psychiatric: Psychiatric: Reports no additional psychiatric complaints Endocrine: Endocrine: Reports no additional endocrine complaints Hematologic/Lymphatic: Hematologic/Lymphatic: Reports no additional hematologic/lymphatic complaints Allergic/Immunologic: Allergic/Immunologic: Reports no additional allergic/immunologic complaints Exam Const: General: no acute distress and alert Orientation/consciousness: patient oriented x3 Limitations: No altered mental status HENMT: Head: normal to inspection Other: normocephalic. He has had an abrasion to her nose. There was TTP on the left mastoid process. No TTP on the jaw or face and no crepitus. No midline tenderness of the neck Painless full active ROM of the neck Eyes: Conjunctivae: conjunctivae normal Pupils: Equal, round and reactive pupils present Neck: Neck: normal visual inspection Chest: Chest palpation & inspection: normal inspection of the chest Resp: Effort & Inspection: normal respiratory effort, not labored and not tachypneic Cardio: Rate: regular rate Rhythm: regular rhythm Skin: General skin exam: normal color Rashes: no rashes Neuro: General: patient oriented x3 and moves all extremities Extrem: General: normal to inspection Other: TTP of the right patella TTP of the right dorsal wrist. She is able to move all fingers and has good blood flow in all of them. Psych: Appearance: grossly normal, well kempt and disheveled Mental Status: mental status grossly normal Course Course Emergency Course: EXAMINATION: CT BRAIN W/O DATE: 10/18/2021 16:10 INDICATION: Headache after trauma. TECHNIQUE: Computed tomography (CT) of the head was performed without intravenous contrast. The dose-length product was 605.33 mGy-cm. Automated exposure control and iterative reconstruction technique were employed. COMPARISON: No prior studies for comparison. FINDINGS: Normal brain parenchymal volume for age. Normal ramirez-white different
[2021-10-18] MEDS: HYDROcodone/acetaminophen (*CRX) 5-325 MG TABLET 1 TAB PO (16:39)
[2021-10-18] MEDS: KETOROLAC 30 MG/ML VIAL (*BKC) IM (16:40)
[2021-10-18 16:44] VITALS: BP 154/87; PULSE 71; RESP 20; TEMP 36.5; O2SAT 97
== END 2021-10-18 16:57 | disposition home or self-care (01) ==
PROVIDERS: Emergency Provider Family Medicine; PCP Internal Medicine
DX: S62.306A Unspecified fracture of fifth metacarpal bone, right hand, initial encounter for closed fracture (principal); W19.XXXA Unspecified fall, initial encounter
CPT/HCPCS: 29125; 70450; 73130; 73560; 96372; 99283; 99284; A4565; A9270; J1885

== ENCOUNTER 2021-12-18 09:34 | Outpatient (CLI) | payer MEDICARE, OTHER, SELFPAY ==
--- NOTE | ~2021-12-18 | XR_ITS ---
XR hand RT min 3V DATE: 12/18/2021 10:11 INDICATION: Follow-up fracture. Persistent generalized pain. TECHNIQUE: 3 views COMPARISON: 10/18/2021 right hand FINDINGS: There is sclerosis at the metaphysis of the fifth metacarpal bone consistent with healing n ondisplaced fracture. No other fracture or dislocation, periosteal reaction or bone destruction is ev ident. Diffuse osteopenia. There is osteoarthritic change, primarily at the interphalangeal joints. IMPRESSION: Healing nondisplaced fracture of metaphysis of fifth metacarpal bone Reviewed, dictated and finalized at location A. ER IMPRESSION: Healing nondisplaced fracture of metaphysis of fifth metacarpal gabby zapien
[2021-12-18 09:55] LABS: Basophils Absolute Auto 0.01 K/mm3 (0.00-0.10); Basophils Percent Auto 0.2 % (0.0-1.0); Eosinophils Absolute Auto 0.03 K/mm3 (0.02-0.50); Eosinophils Percent Auto 0.5 % (1.0-6.0); Hematocrit 41.4 % (35.0-42.0); Hemoglobin 14.2 g/dL (11.7-13.8); Immature Granulocyte Absolute 0.01 K/mm3 (0.00-0.00); Immature Granulocyte Percent A 0.2 % (0.0-0.0); Lymphocytes Absolute Auto 1.56 K/mm3 (1.10-4.50); Lymphocytes Percent Auto 25.7 % (18.0-42.0); Mean Corpuscular HGB Conc 34.3 g/dL (32.0-36.0); Mean Corpuscular Hemoglobin 32.5 pg (27.0-31.0); Mean Corpuscular Volume 94.7 fL (78.0-102.0); Mean Platelet Volume 10.9 fl (9.2-11.8); Monocytes Absolute Auto 0.47 K/mm3 (0.10-0.90); Monocytes Percent Auto 7.7 % (2.0-11.0); Neutrophils Percent Auto 65.7 % (50.0-70.0); Platelet Count Result 259 K/mm3 (150-420); Red Blood Count 4.37 M/mm3 (4.20-5.40); Red Cell Distribution Width 12.7 % (11.6-14.4); White Blood Count 6.1 K/mm3 (4.8-10.8)
[2021-12-18 09:59] LABS: Add Urine Microscopic? YES; Appearance Urine Clear (Clear); Bilirubin Urine Negative (Negative); Blood Urine Negative (Negative); Color Urine Yellow (Yellow); Glucose Urine UA Negative (Negative); Ketones Urine Negative (Negative); Leukocyte Esterase Ur Trace (Negative); Nitrate Urine Negative (Negative); Protein Urine Negative (Negative); Specific Grav Ur 1.025 (1.010-1.020); Urobilinogen Urine 0.2 mg/dL (0.2-1.0)
[2021-12-18 10:04] LABS: Bacteria Urine Trace /hpf; Mucus Urine Moderate /lpf; RBC Urine 0-2 /hpf (0-2); Squamous Epithelial Cell Urine Moderate /hpf (Few); WBC Urine 0-3 /hpf (0-3)
[2021-12-18 10:41] LABS: Alanine Aminotransferase 29 U/L (14-59); Albumin Level 4.1 g/dL (3.4-5.0); Alkaline Phosphatase 89 U/L (46-116); Anion Gap 9 mmol/L (8-16); Aspartate Amino Transferase 22 U/L (15-37); Bilirubin,Total 0.6 mg/dL (0.00-1.00); Blood Urea Nitrogen 12 mg/dL (7-18); Calcium 9.4 mg/dL (8.5-10.1); Carbon Dioxide 28 mmol/L (21-32); Chloride 104 mmol/L (98-108); Cholesterol 183 mg/dL (0-200); Creatine Kinase 70 U/L (26-192); Estimated Glomerular Filt Rate > 60; Free T3 2.41 pg/mL (2.18-3.98); Free T4 Free Thyroxine 1.09 ng/dL (0.76-1.46); Glucose 100 mg/dL (70-99); HDL Direct 67 mg/dL (40-60); LDL Cholesterol Calculated 97 mg/dL (<130); Osmolality Calculated 291 mOsm/kg (285-295); Potassium 4.1 mmol/L (3.5-5.1); Sodium 141 mmol/L (136-145); Thyroid Stimulating Hormone 0.67 uIU/mL (0.36-3.74); Total Protein 7.5 g/dL (6.4-8.2); Triglycerides 97 mg/dL (0-150)
[2021-12-22 06:38] LABS: Red Blood Cell Folate 474 ng/mL RBC (>280)
[2021-12-22 14:44] LABS: Vitamin D 25 Hydroxy 24 ng/mL (30-100)
== END 2021-12-18 09:35 | disposition home or self-care (01) ==
LOC: CHSLAB 09:40
PROVIDERS: PCP Internal Medicine
DX: S62.91XD Unspecified fracture of right hand, subsequent encounter for fracture with routine healing (principal); E03.4 Atrophy of thyroid (acquired); I10 Essential (primary) hypertension; E78.2 Mixed hyperlipidemia; M81.0 Age-related osteoporosis without current pathological fracture; E55.9 Vitamin D deficiency, unspecified; M06.09 Rheumatoid arthritis without rheumatoid factor, multiple sites; Z79.899 Other long term (current) drug therapy
CPT/HCPCS: 36415; 73130; 80053; 80061; 81001; 82306; 82550; 82747; 84439; 84443; 84481; 85025

== ENCOUNTER 2022-03-02 09:11 | Outpatient (RCR) | payer MEDICARE, SELFPAY ==
[2022-03-02 10:04] LABS: Alanine Aminotransferase 26 U/L (14-59); Albumin Level 3.8 g/dL (3.4-5.0); Alkaline Phosphatase 83 U/L (46-116); Anion Gap 10 mmol/L (8-16); Aspartate Amino Transferase 20 U/L (15-37); Bilirubin,Total 0.4 mg/dL (0.00-1.00); Blood Urea Nitrogen 16 mg/dL (7-18); Calcium 8.9 mg/dL (8.5-10.1); Carbon Dioxide 28 mmol/L (21-32); Chloride 105 mmol/L (98-108); Estimated Glomerular Filt Rate > 60; Glucose 108 mg/dL (70-99); Osmolality Calculated 298 mOsm/kg (285-295); Sodium 143 mmol/L (136-145); Total Protein 6.7 g/dL (6.4-8.2)
== END 2022-05-31 23:59 | disposition home or self-care (01) ==
LOC: CHSLAB 09:11
PROVIDERS: PCP Internal Medicine
DX: M06.09 Rheumatoid arthritis without rheumatoid factor, multiple sites (principal); Z79.899 Other long term (current) drug therapy
CPT/HCPCS: 36415; 80053

== ENCOUNTER 2022-03-15 11:26 | Outpatient (CLI) | payer MEDICARE, OTHER, SELFPAY ==
--- NOTE | ~2022-03-15 | XR_ITS ---
EXAMINATION: XR hip LT min 2V DATE: 03/15/2022 11:51 INDICATION: Left hip pain. TECHNIQUE: 2 views of left hip were obtained. COMPARISON: None. FINDINGS: Bone alignment is normal. No fracture. Left hip joint space is normal. IMPRESSION: 1. Normal left hip. Reviewed, dictated and finalized at location B. IMPRESSION: 1. Normal left hip.
== END 2022-03-15 11:27 | disposition home or self-care (01) ==
LOC: CHSIMG 11:30
PROVIDERS: PCP Internal Medicine; Visit Provider Internal Medicine
DX: M25.552 Pain in left hip (principal)
CPT/HCPCS: 73502

== ENCOUNTER 2022-03-23 08:59 | Outpatient (CLI) | payer MEDICARE, OTHER, SELFPAY ==
--- NOTE | ~2022-03-23 | MR_ITS ---
EXAMINATION: MR hip LT wo con DATE: 03/23/2022 10:01 INDICATION: Left hip pain TECHNIQUE: Magnetic resonance imaging (MRI) of the left hip was performed without intravenous contra st. Sequences included full-field axial PD-weighted FS FSE and T1-weighted FSE, coronal of the pelvis with PD-weighted FS FSE, small field of view of the affected hip with axial PD-weighted FS FSE, sag ittal PD-weighted FS FSE and coronal PD weighted FS FSE. COMPARISON: Left hip radiographs date FINDINGS: Bones/labrum/cartilage: Alignment is normal. No fracture, avascular necrosis or pathologic marrow replacing process. Labrum is normal. Articular cartilage is normal. Fluid: Symmetric physiologic amount of fluid within both hip joints. Mild increased fluid signal overlying t he bilateral greater trochanters consistent with mild bilateral trochanteric bursitis. There is also mild left ischial bursitis. Soft tissues: Normal and symmetric muscle bulk and signal in the pelvis and visualized proximal thighs. The iliopso as and gluteal tendons are normal. Mild tendinopathy without discrete tear at the proximal left adduc tor ele tendon. The bilateral proximal hamstring tendons are normal. Surgical clip in the right he mipelvis. The uterus is not identified and has likely been surgically resected. Mild to moderate sigm oid diverticulosis without adjacent inflammatory change to suggest diverticulitis. Limited evaluation of visceral organs of the pelvis is otherwise unremarkable. No pathologically enlarged pelvic/ingui nal lymphadenopathy. IMPRESSION: 1. Mild left ischial bursitis with mild tendinopathy without discrete tear of the proximal left adduc tor [place] tendon. 2. Mild bilateral trochanteric bursitis. 3. Mild to moderate sigmoid diverticulosis. Reviewed, dictated and finalized at location A. IMPRESSION: 1. Mild left ischial bursitis with mild tendinopathy without discrete tear of t he proximal left adductor [place] tendon. 2. Mild bilateral trochanteric bursitis. 3. Mild to moderate sigmoid diverticulosis.
== END 2022-03-23 09:00 | disposition home or self-care (01) ==
LOC: CHSIMG 09:02
PROVIDERS: PCP Internal Medicine; Visit Provider Internal Medicine
DX: M25.552 Pain in left hip (principal)
CPT/HCPCS: 73721

== ENCOUNTER 2022-04-27 10:59 | Outpatient (CLI) | payer MEDICARE, OTHER, SELFPAY ==
[2022-04-27 11:39] LABS: Basophils Absolute Auto 0.02 K/mm3 (0.00-0.10); Basophils Percent Auto 0.4 % (0.0-1.0); Eosinophils Absolute Auto 0.03 K/mm3 (0.02-0.50); Eosinophils Percent Auto 0.6 % (1.0-6.0); Hematocrit 39.7 % (35.0-42.0); Immature Granulocyte Absolute 0.01 K/mm3 (0.00-0.00); Immature Granulocyte Percent A 0.2 % (0.0-0.0); Lymphocytes Absolute Auto 1.05 K/mm3 (1.10-4.50); Mean Corpuscular HGB Conc 32.7 g/dL (32.0-36.0); Mean Corpuscular Hemoglobin 32.2 pg (27.0-31.0); Mean Corpuscular Volume 98.3 fL (78.0-102.0); Mean Platelet Volume 11.9 fl (9.2-11.8); Monocytes Absolute Auto 0.54 K/mm3 (0.10-0.90); Monocytes Percent Auto 10.8 % (2.0-11.0); Neutrophils Absolute Auto 3.4 K/mm3 (1.7-7.2); Platelet Count Result 234 K/mm3 (150-420); Red Blood Count 4.04 M/mm3 (4.20-5.40); Red Cell Distribution Width 13.2 % (11.6-14.4)
[2022-04-27 11:40] LABS: Add Urine Microscopic? NO; Appearance Urine Clear (Clear); Bilirubin Urine Negative (Negative); Blood Urine Negative (Negative); Color Urine Light Yellow (Yellow); Glucose Urine UA Negative (Negative); Ketones Urine Negative (Negative); Leukocyte Esterase Ur Negative LEU/UL (Negative); Nitrate Urine Negative (Negative); Protein Urine Negative (Negative); Urobilinogen Urine 0.2 mg/dL (0.2-1.0)
[2022-04-27 12:03] LABS: Alanine Aminotransferase 17 U/L (14-59); Alkaline Phosphatase 98 U/L (46-116); Anion Gap 8 mmol/L (8-16); Aspartate Amino Transferase 18 U/L (15-37); Bilirubin,Total 0.4 mg/dL (0.00-1.00); Blood Urea Nitrogen 19 mg/dL (7-18); CRP 0.9 mg/dL (0.0-0.9); Carbon Dioxide 26 mmol/L (21-32); Chloride 106 mmol/L (98-108); Estimated Glomerular Filt Rate > 60; Glucose 103 mg/dL (70-99); Osmolality Calculated 292 mOsm/kg (285-295); Sodium 140 mmol/L (136-145); Thyroid Stimulating Hormone 1.65 uIU/mL (0.36-3.74); Total Protein 8.5 g/dL (6.4-8.2)
[2022-04-27 12:42] LABS: Erythrocyte Sedimentation Rate 21 mm/hr (0-20)
[2022-05-01 04:52] LABS: NIL 0.02 IU/mL; Quantiferon TB Plus, 1T NEGATIVE (NEGATIVE); TB2-NIL <0.00 IU/mL
[2022-05-01 15:32] LABS: Parathyroid Intact 29 pg/mL (14-64)
[2022-05-01 22:36] LABS: Albumin 4.4 g/dL (3.8-4.8); Alpha 1 Globulin 0.3 g/dL (0.2-0.3); Alpha 2 Globulin 0.8 g/dL (0.5-0.9); Beta 1 Globulin 0.5 g/dL (0.4-0.6); Gamma Globulin 1.1 g/dL (0.8-1.7); Protein, Total 7.4 g/dL (6.1-8.1)
[2022-05-02 13:31] LABS: Vitamin D 25 Hydroxy 27 ng/mL (30-100)
== END 2022-04-27 11:00 | disposition home or self-care (01) ==
LOC: CHSLAB 11:03
PROVIDERS: PCP Internal Medicine; Visit Provider Internal Medicine
DX: M06.09 Rheumatoid arthritis without rheumatoid factor, multiple sites (principal); Z79.899 Other long term (current) drug therapy; M15.0 Primary generalized (osteo)arthritis; M81.0 Age-related osteoporosis without current pathological fracture; R25.2 Cramp and spasm
CPT/HCPCS: 36415; 80053; 81003; 82306; 83970; 84155; 84165; 84443; 85025; 85652; 86140; 86334; 86480

== ENCOUNTER 2022-08-02 11:49 | Outpatient (CLI) | payer MEDICARE, OTHER, SELFPAY ==
--- NOTE | ~2022-08-02 | MM_ITS ---
EXAMINATION: MM screening [facility] w kenrick HISTORY: Screening mammogram TECHNIQUE: Craniocaudal and mediolateral oblique 3-D tomosynthesis images were obtained and synthetic 2-D images were generated. CAD analysis was submitted and interpreted. COMPARISON: 06/04/2021, 05/29/2020, 03/11/2019 bilateral screening mammogram examinations BREAST PARENCHYMAL COMPOSITION: There are scattered areas of fibroglandular density. FINDINGS: There are scattered bilateral benign calcifications are again noted in each breast. There i s no evidence of suspicious mass, calcification, or architectural distortion to suggest malignancy in either breast. There has been no suspicious interval change. IMPRESSION: 1. No mammographic evidence of malignancy. 2. Recommend routine screening mammography in one year. BI-RADS Category 2: Benign finding(s). Reviewed, dictated and finalized at location A.
== END 2022-08-02 11:50 | disposition home or self-care (01) ==
LOC: CHSIMG 11:50
PROVIDERS: PCP Internal Medicine; Visit Provider Internal Medicine
DX: Z12.31 Encounter for screening mammogram for malignant neoplasm of breast (principal)
CPT/HCPCS: 77063; 77067

== ENCOUNTER 2022-08-07 09:01 | Outpatient (CLI) | payer MEDICARE, SELFPAY ==
[2022-08-07 09:26] LABS: Add Urine Microscopic? NO; Appearance Urine Clear (Clear); Basophils Absolute Auto 0.01 K/mm3 (0.00-0.10); Basophils Percent Auto 0.2 % (0.0-1.0); Bilirubin Urine Negative (Negative); Blood Urine Negative (Negative); Color Urine Yellow (Yellow); Eosinophils Absolute Auto 0.01 K/mm3 (0.02-0.50); Eosinophils Percent Auto 0.2 % (1.0-6.0); Glucose Urine UA Negative (Negative); Hematocrit 39.7 % (35.0-42.0); Hemoglobin 13.1 g/dL (11.7-13.8); Immature Granulocyte Absolute 0.01 K/mm3 (0.00-0.00); Immature Granulocyte Percent A 0.2 % (0.0-0.0); Ketones Urine Negative (Negative); Leukocyte Esterase Ur Negative (Negative); Lymphocytes Absolute Auto 1.29 K/mm3 (1.10-4.50); Lymphocytes Percent Auto 23.8 % (18.0-42.0); Mean Corpuscular Hemoglobin 31.2 pg (27.0-31.0); Mean Corpuscular Volume 94.5 fL (78.0-102.0); Mean Platelet Volume 11.2 fl (9.2-11.8); Monocytes Absolute Auto 0.44 K/mm3 (0.10-0.90); Monocytes Percent Auto 8.1 % (2.0-11.0); Neutrophils Absolute Auto 3.7 K/mm3 (1.7-7.2); Neutrophils Percent Auto 67.5 % (50.0-70.0); Nitrate Urine Negative (Negative); Platelet Count Result 254 K/mm3 (150-420); Protein Urine Negative (Negative); Red Cell Distribution Width 13.1 % (11.6-14.4); Specific Grav Ur 1.025 (1.010-1.020); Urobilinogen Urine 0.2 mg/dL (0.2-1.0); White Blood Count 5.4 K/mm3 (4.8-10.8); pH Urine 5.5 (5.0-8.0)
[2022-08-07 09:34] LABS: Hemoglobin A1C 6.1 % (<5.7)
[2022-08-07 10:10] LABS: Alanine Aminotransferase 26 U/L (14-59); Alkaline Phosphatase 47 U/L (46-116); Anion Gap 10 mmol/L (8-16); Aspartate Amino Transferase 21 U/L (15-37); Bilirubin,Total 0.6 mg/dL (0.00-1.00); Blood Urea Nitrogen 15 mg/dL (7-18); Calcium 8.6 mg/dL (8.5-10.1); Carbon Dioxide 25 mmol/L (21-32); Chloride 106 mmol/L (98-108); Cholesterol 151 mg/dL (0-200); Creatine Kinase 100 U/L (26-192); Estimated Glomerular Filt Rate > 60; Free T4 Free Thyroxine 1.12 ng/dL (0.76-1.46); Glucose 97 mg/dL (70-99); HDL Direct 62 mg/dL (40-60); LDL Cholesterol Calculated 73 mg/dL (<130); Magnesium 2.2 mg/dL (1.8-2.4); NT Pro B Type Natriuretic Pept 92 pg/mL (0-450); Osmolality Calculated 292 mOsm/kg (285-295); Potassium 3.9 mmol/L (3.5-5.1); Sodium 141 mmol/L (136-145); Thyroid Stimulating Hormone 0.98 uIU/mL (0.36-3.74); Triglycerides 82 mg/dL (0-150)
[2022-08-10 12:33] LABS: Vitamin D 25 Hydroxy 24 ng/mL (30-100)
== END 2022-08-07 09:02 | disposition home or self-care (01) ==
LOC: CHSLAB 09:04
PROVIDERS: PCP Internal Medicine
DX: E78.2 Mixed hyperlipidemia (principal); I10 Essential (primary) hypertension; R73.01 Impaired fasting glucose; M81.0 Age-related osteoporosis without current pathological fracture; E03.4 Atrophy of thyroid (acquired); I48.0 Paroxysmal atrial fibrillation; M06.09 Rheumatoid arthritis without rheumatoid factor, multiple sites; Z79.899 Other long term (current) drug therapy; I50.9 Heart failure, unspecified
CPT/HCPCS: 36415; 80053; 80061; 81003; 82306; 82550; 83036; 83735; 83880; 84439; 84443; 85025

== ENCOUNTER 2022-09-12 09:06 | Outpatient (CLI) | payer MEDICARE, SELFPAY ==
[2022-09-12 09:39] LABS: Anion Gap 11 mmol/L (8-16); Blood Urea Nitrogen 23 mg/dL (7-18); Calcium 9.1 mg/dL (8.5-10.1); Carbon Dioxide 28 mmol/L (21-32); Chloride 104 mmol/L (98-108); Estimated Glomerular Filt Rate 60; Glucose 108 mg/dL (70-99); Osmolality Calculated 300 mOsm/kg (285-295); Potassium 3.8 mmol/L (3.5-5.1); Sodium 143 mmol/L (136-145)
== END 2022-09-12 09:07 | disposition home or self-care (01) ==
LOC: CHSLAB 09:12
PROVIDERS: PCP Internal Medicine
DX: R60.9 Edema, unspecified (principal)
CPT/HCPCS: 36415; 80048

== ENCOUNTER 2022-12-17 08:31 | Outpatient (RCR) | payer MEDICARE, SELFPAY ==
[2022-09-24 09:42] LABS: Basophils Absolute Auto 0.01 K/mm3 (0.00-0.10); Basophils Percent Auto 0.1 % (0.0-1.0); Eosinophils Absolute Auto 0.04 K/mm3 (0.02-0.50); Eosinophils Percent Auto 0.6 % (1.0-6.0); Hematocrit 40.5 % (35.0-42.0); Hemoglobin 13.4 g/dL (11.7-13.8); Immature Granulocyte Absolute 0.02 K/mm3 (0.00-0.00); Immature Granulocyte Percent A 0.3 % (0.0-0.0); Lymphocytes Absolute Auto 2.05 K/mm3 (1.10-4.50); Lymphocytes Percent Auto 29.1 % (18.0-42.0); Mean Corpuscular HGB Conc 33.1 g/dL (32.0-36.0); Mean Corpuscular Hemoglobin 31.6 pg (27.0-31.0); Mean Corpuscular Volume 95.5 fL (78.0-102.0); Mean Platelet Volume 10.5 fl (9.2-11.8); Monocytes Absolute Auto 0.64 K/mm3 (0.10-0.90); Monocytes Percent Auto 9.1 % (2.0-11.0); Neutrophils Absolute Auto 4.3 K/mm3 (1.7-7.2); Neutrophils Percent Auto 60.8 % (50.0-70.0); Platelet Count Result 296 K/mm3 (150-420); Red Blood Count 4.24 M/mm3 (4.20-5.40); Red Cell Distribution Width 13.2 % (11.6-14.4); White Blood Count 7.1 K/mm3 (4.8-10.8)
[2022-09-24 09:44] LABS: Add Urine Microscopic? NO; Appearance Urine Clear (Clear); Bilirubin Urine Negative (Negative); Blood Urine Negative (Negative); Color Urine Yellow (Yellow); Glucose Urine UA Negative (Negative); Ketones Urine Negative (Negative); Leukocyte Esterase Ur Negative LEU/UL (Negative); Nitrate Urine Negative (Negative); Protein Urine Negative (Negative); Urobilinogen Urine 0.2 mg/dL (0.2-1.0)
[2022-09-24 10:47] LABS: Alanine Aminotransferase 25 U/L (14-59); Albumin Level 4.2 g/dL (3.4-5.0); Alkaline Phosphatase 43 U/L (46-116); Anion Gap 9 mmol/L (8-16); Aspartate Amino Transferase 20 U/L (15-37); Bilirubin,Total 0.5 mg/dL (0.00-1.00); Blood Urea Nitrogen 14 mg/dL (7-18); Calcium 8.8 mg/dL (8.5-10.1); Carbon Dioxide 28 mmol/L (21-32); Chloride 107 mmol/L (98-108); Estimated Glomerular Filt Rate > 60; Glucose 97 mg/dL (70-99); Osmolality Calculated 298 mOsm/kg (285-295); Potassium 4.1 mmol/L (3.5-5.1); Sodium 144 mmol/L (136-145); Total Protein 7.7 g/dL (6.4-8.2)
[2022-12-17 08:44] LABS: Basophils Absolute Auto 0.01 K/mm3 (0.00-0.10); Basophils Percent Auto 0.2 % (0.0-1.0); Eosinophils Absolute Auto 0.02 K/mm3 (0.02-0.50); Eosinophils Percent Auto 0.3 % (1.0-6.0); Hematocrit 39.5 % (35.0-42.0); Hemoglobin 13.2 g/dL (11.7-13.8); Immature Granulocyte Absolute 0.01 K/mm3 (0.00-0.00); Immature Granulocyte Percent A 0.2 % (0.0-0.0); Lymphocytes Absolute Auto 2.06 K/mm3 (1.10-4.50); Mean Corpuscular HGB Conc 33.4 g/dL (32.0-36.0); Mean Corpuscular Volume 95.6 fL (78.0-102.0); Mean Platelet Volume 10.8 fl (9.2-11.8); Monocytes Percent Auto 8.7 % (2.0-11.0); Neutrophils Absolute Auto 3.1 K/mm3 (1.7-7.2); Neutrophils Percent Auto 54.6 % (50.0-70.0); Platelet Count Result 282 K/mm3 (150-420); Red Blood Count 4.13 M/mm3 (4.20-5.40); Red Cell Distribution Width 12.8 % (11.6-14.4); White Blood Count 5.7 K/mm3 (4.8-10.8)
[2022-12-17 08:45] LABS: Add Urine Microscopic? YES; Appearance Urine Clear (Clear); Bilirubin Urine Negative (Negative); Blood Urine Negative (Negative); Color Urine Yellow (Yellow); Glucose Urine UA Negative (Negative); Ketones Urine Trace (Negative); Leukocyte Esterase Ur Negative (Negative); Nitrate Urine Negative (Negative); Protein Urine Negative (Negative); Specific Grav Ur >= 1.030 (1.010-1.020); Urobilinogen Urine 0.2 mg/dL (0.2-1.0); pH Urine 5.5 (5.0-8.0)
[2022-12-17 09:05] LABS: Bacteria Urine 1+ /hpf; Mucus Urine Moderate /lpf; RBC Urine None seen /hpf (0-2); Squamous Epithelial Cell Urine Moderate /hpf (Few); WBC Urine None seen /hpf (0-3)
[2022-12-17 09:33] LABS: Alanine Aminotransferase 26 U/L (14-59); Alkaline Phosphatase 42 U/L (46-116); Anion Gap 8 mmol/L (8-16); Aspartate Amino Transferase 18 U/L (15-37); Bilirubin,Total 0.4 mg/dL (0.00-1.00); Blood Urea Nitrogen 14 mg/dL (7-18); Calcium 8.6 mg/dL (8.5-10.1); Carbon Dioxide 30 mmol/L (21-32); Chloride 107 mmol/L (98-108); Estimated Glomerular Filt Rate > 60; Glucose 101 mg/dL (70-99); Osmolality Calculated 300 mOsm/kg (285-295); Potassium 4.1 mmol/L (3.5-5.1); Sodium 145 mmol/L (136-145); Total Protein 7.1 g/dL (6.4-8.2)
== END 2022-12-23 23:59 | disposition home or self-care (01) ==
LOC: CHSLAB 08:31
PROVIDERS: PCP Internal Medicine; Visit Provider Internal Medicine
DX: Z51.81 Encounter for therapeutic drug level monitoring (principal); M06.09 Rheumatoid arthritis without rheumatoid factor, multiple sites; Z79.899 Other long term (current) drug therapy
CPT/HCPCS: 36415; 80053; 81001; 81003; 85025; 87086; 87088

== ENCOUNTER 2023-03-24 09:32 | Outpatient (CLI) | payer MEDICARE, SELFPAY ==
[2023-03-24 09:50] LABS: Basophils Absolute Auto 0.02 K/mm3 (0.00-0.10); Basophils Percent Auto 0.4 % (0.0-1.0); Eosinophils Absolute Auto 0.04 K/mm3 (0.02-0.50); Eosinophils Percent Auto 0.7 % (1.0-6.0); Hematocrit 39.2 % (35.0-42.0); Immature Granulocyte Absolute 0.01 K/mm3 (0.00-0.00); Immature Granulocyte Percent A 0.2 % (0.0-0.0); Lymphocytes Percent Auto 22.1 % (18.0-42.0); Mean Corpuscular HGB Conc 33.2 g/dL (32.0-36.0); Mean Corpuscular Hemoglobin 31.6 pg (27.0-31.0); Mean Corpuscular Volume 95.1 fL (78.0-102.0); Mean Platelet Volume 10.6 fl (9.2-11.8); Monocytes Absolute Auto 0.35 K/mm3 (0.10-0.90); Monocytes Percent Auto 6.5 % (2.0-11.0); Neutrophils Absolute Auto 3.8 K/mm3 (1.7-7.2); Neutrophils Percent Auto 70.1 % (50.0-70.0); Platelet Count Result 265 K/mm3 (150-420); Red Blood Count 4.12 M/mm3 (4.20-5.40); Red Cell Distribution Width 13.9 % (11.6-14.4); White Blood Count 5.4 K/mm3 (4.8-10.8)
[2023-03-24 09:53] LABS: Appearance Urine Clear (Clear); Bilirubin Urine Negative (Negative); Blood Urine Negative (Negative); Color Urine Light Yellow (Yellow); Glucose Urine UA Negative (Negative); Ketones Urine Negative (Negative); Leukocyte Esterase Ur Trace (Negative); Nitrate Urine Negative (Negative); Protein Urine Negative (Negative); Urobilinogen Urine 0.2 mg/dL (0.2-1.0); pH Urine 5.5 (5.0-8.0)
[2023-03-24 09:59] LABS: Add Urine Microscopic? YES; Bacteria Urine Trace /hpf; Hemoglobin A1C 5.6 % (<5.7); Mucus Urine Moderate /lpf; RBC Urine None seen /hpf (0-2); Squamous Epithelial Cell Urine Few /hpf (Few); WBC Urine 0-3 /hpf (0-3)
[2023-03-24 10:23] LABS: Creatinine Urine 59.19 mg/dL (40-278); MALB Creatinine Ratio 21.9 mg/g (0-30); Microalbumin Urine Random < 13.0 mg/L
[2023-03-24 10:47] LABS: Alanine Aminotransferase 31 U/L (14-59); Albumin Level 3.9 g/dL (3.4-5.0); Alkaline Phosphatase 50 U/L (46-116); Anion Gap 9 mmol/L (8-16); Aspartate Amino Transferase 28 U/L (15-37); Bilirubin,Total 0.4 mg/dL (0.00-1.00); Blood Urea Nitrogen 12 mg/dL (7-18); Calcium 8.6 mg/dL (8.5-10.1); Carbon Dioxide 28 mmol/L (21-32); Chloride 107 mmol/L (98-108); Cholesterol 133 mg/dL (0-200); Creatine Kinase 54 U/L (26-192); Estimated Glomerular Filt Rate > 60; Free T3 2.34 pg/mL (2.18-3.98); Glucose 109 mg/dL (70-99); HDL Direct 49 mg/dL (40-60); LDL Cholesterol Calculated 65 mg/dL (<130); NT Pro B Type Natriuretic Pept 127 pg/mL (0-450); Osmolality Calculated 298 mOsm/kg (285-295); Potassium 3.8 mmol/L (3.5-5.1); Sodium 144 mmol/L (136-145); Thyroid Stimulating Hormone 1.47 uIU/mL (0.36-3.74); Total Protein 7.4 g/dL (6.4-8.2); Triglycerides 96 mg/dL (0-150)
[2023-03-27 17:59] LABS: Vitamin D 25 Hydroxy 31 ng/mL (30-100)
== END 2023-03-24 09:33 | disposition home or self-care (01) ==
PROVIDERS: PCP Internal Medicine; Visit Provider Internal Medicine
DX: I10 Essential (primary) hypertension (principal); E03.4 Atrophy of thyroid (acquired); E11.9 Type 2 diabetes mellitus without complications; M81.0 Age-related osteoporosis without current pathological fracture; E78.2 Mixed hyperlipidemia; I48.0 Paroxysmal atrial fibrillation; I50.9 Heart failure, unspecified
CPT/HCPCS: 36415; 80053; 80061; 81001; 82043; 82306; 82550; 83036; 83735; 83880; 84439; 84443; 84481; 85025

== ENCOUNTER 2023-04-12 09:15 | Outpatient (RCR) | payer MEDICARE, SELFPAY ==
[2023-02-07 09:55] LABS: Basophils Absolute Auto 0.02 K/mm3 (0.00-0.10); Basophils Percent Auto 0.4 % (0.0-1.0); Eosinophils Absolute Auto 0.06 K/mm3 (0.02-0.50); Eosinophils Percent Auto 1.1 % (1.0-6.0); Hematocrit 38.2 % (35.0-42.0); Hemoglobin 12.7 g/dL (11.7-13.8); Immature Granulocyte Absolute 0.01 K/mm3 (0.00-0.00); Immature Granulocyte Percent A 0.2 % (0.0-0.0); Lymphocytes Absolute Auto 1.43 K/mm3 (1.10-4.50); Lymphocytes Percent Auto 25.3 % (18.0-42.0); Mean Corpuscular HGB Conc 33.2 g/dL (32.0-36.0); Mean Corpuscular Hemoglobin 31.5 pg (27.0-31.0); Mean Corpuscular Volume 94.8 fL (78.0-102.0); Mean Platelet Volume 10.3 fl (9.2-11.8); Monocytes Absolute Auto 0.47 K/mm3 (0.10-0.90); Monocytes Percent Auto 8.3 % (2.0-11.0); Neutrophils Absolute Auto 3.7 K/mm3 (1.7-7.2); Neutrophils Percent Auto 64.7 % (50.0-70.0); Platelet Count Result 237 K/mm3 (150-420); Red Blood Count 4.03 M/mm3 (4.20-5.40); Red Cell Distribution Width 13.1 % (11.6-14.4); White Blood Count 5.7 K/mm3 (4.8-10.8)
[2023-02-07 10:07] LABS: Appearance Urine Clear (Clear); Bilirubin Urine Negative (Negative); Blood Urine Negative (Negative); Color Urine Light Yellow (Yellow); Glucose Urine UA Negative (Negative); Ketones Urine Negative (Negative); Leukocyte Esterase Ur Negative LEU/UL (Negative); Nitrate Urine Negative (Negative); Protein Urine Negative (Negative); Urobilinogen Urine 0.2 mg/dL (0.2-1.0)
[2023-02-07 10:08] LABS: Add Urine Microscopic? NO
[2023-02-07 11:36] LABS: Alanine Aminotransferase 25 U/L (14-59); Albumin Level 3.8 g/dL (3.4-5.0); Alkaline Phosphatase 54 U/L (46-116); Anion Gap 11 mmol/L (8-16); Aspartate Amino Transferase 18 U/L (15-37); Bilirubin,Total 0.4 mg/dL (0.00-1.00); Blood Urea Nitrogen 11 mg/dL (7-18); Calcium 8.6 mg/dL (8.5-10.1); Carbon Dioxide 27 mmol/L (21-32); Chloride 107 mmol/L (98-108); Estimated Glomerular Filt Rate > 60; Glucose 99 mg/dL (70-99); Osmolality Calculated 299 mOsm/kg (285-295); Potassium 3.8 mmol/L (3.5-5.1); Sodium 145 mmol/L (136-145); Total Protein 7.7 g/dL (6.4-8.2)
[2023-04-12 09:58] LABS: Appearance Urine Clear (Clear); Basophils Absolute Auto 0.02 K/mm3 (0.00-0.10); Basophils Percent Auto 0.4 % (0.0-1.0); Bilirubin Urine Negative (Negative); Blood Urine Negative (Negative); Color Urine Light Yellow (Yellow); Eosinophils Absolute Auto 0.07 K/mm3 (0.02-0.50); Eosinophils Percent Auto 1.5 % (1.0-6.0); Glucose Urine UA Negative (Negative); Hematocrit 38.8 % (35.0-42.0); Hemoglobin 12.6 g/dL (11.7-13.8); Immature Granulocyte Absolute 0.02 K/mm3 (0.00-0.00); Immature Granulocyte Percent A 0.4 % (0.0-0.0); Ketones Urine Negative (Negative); Leukocyte Esterase Ur Trace LEU/UL (Negative); Lymphocytes Percent Auto 27.8 % (18.0-42.0); Mean Corpuscular HGB Conc 32.5 g/dL (32.0-36.0); Mean Corpuscular Hemoglobin 31.2 pg (27.0-31.0); Mean Platelet Volume 11.5 fl (9.2-11.8); Monocytes Percent Auto 8.6 % (2.0-11.0); Neutrophils Absolute Auto 2.9 K/mm3 (1.7-7.2); Neutrophils Percent Auto 61.3 % (50.0-70.0); Nitrate Urine Negative (Negative); Platelet Count Result 246 K/mm3 (150-420); Protein Urine Negative (Negative); Red Blood Count 4.04 M/mm3 (4.20-5.40); Red Cell Distribution Width 13.9 % (11.6-14.4); Urobilinogen Urine 0.2 mg/dL (0.2-1.0); White Blood Count 4.7 K/mm3 (4.8-10.8)
[2023-04-12 10:00] LABS: Add Urine Microscopic? YES; Bacteria Urine None seen /hpf; RBC Urine None seen /hpf (0-2); Squamous Epithelial Cell Urine Rare /hpf (Few); WBC Urine None seen /hpf (0-3)
[2023-04-12 10:12] LABS: Alanine Aminotransferase 20 U/L (14-59); Albumin Level 3.8 g/dL (3.4-5.0); Alkaline Phosphatase 51 U/L (46-116); Anion Gap 8 mmol/L (8-16); Aspartate Amino Transferase 19 U/L (15-37); Bilirubin,Total 0.5 mg/dL (0.00-1.00); Blood Urea Nitrogen 11 mg/dL (7-18); Calcium 8.7 mg/dL (8.5-10.1); Carbon Dioxide 29 mmol/L (21-32); Chloride 106 mmol/L (98-108); Estimated Glomerular Filt Rate > 60; Glucose 101 mg/dL (70-99); Osmolality Calculated 295 mOsm/kg (285-295); Potassium 4.1 mmol/L (3.5-5.1); Sodium 143 mmol/L (136-145); Total Protein 7.3 g/dL (6.4-8.2)
== END 2023-05-08 23:59 | disposition home or self-care (01) ==
LOC: CHSLAB 09:15
PROVIDERS: PCP Internal Medicine; Visit Provider Internal Medicine
DX: Z51.81 Encounter for therapeutic drug level monitoring (principal); M06.09 Rheumatoid arthritis without rheumatoid factor, multiple sites; Z79.899 Other long term (current) drug therapy
CPT/HCPCS: 36415; 80053; 81001; 81003; 85025

== ENCOUNTER 2023-07-12 08:53 | Outpatient (RCR) | payer MEDICARE, SELFPAY ==
[2023-07-12 09:20] LABS: Hematocrit 37.8 % (35.0-42.0); Hemoglobin 12.9 g/dL (11.7-13.8); Mean Corpuscular HGB Conc 34.1 g/dL (32.0-36.0); Mean Corpuscular Hemoglobin 32.7 pg (27.0-31.0); Mean Corpuscular Volume 95.7 fL (78.0-102.0); Mean Platelet Volume 10.3 fl (9.2-11.8); Platelet Count Result 235 K/mm3 (150-420); Red Blood Count 3.95 M/mm3 (4.20-5.40); Red Cell Distribution Width 13.7 % (11.6-14.4); White Blood Count 4.3 K/mm3 (4.8-10.8)
[2023-07-12 09:37] LABS: Appearance Urine Clear (Clear); Bilirubin Urine Negative (Negative); Blood Urine Negative (Negative); Color Urine Light Yellow (Yellow); Glucose Urine UA Negative (Negative); Ketones Urine Negative (Negative); Leukocyte Esterase Ur Negative LEU/UL (Negative); Nitrate Urine Negative (Negative); Protein Urine Negative (Negative); Urobilinogen Urine 0.2 mg/dL (0.2-1.0)
[2023-07-12 10:10] LABS: Alanine Aminotransferase 16 U/L (14-59); Albumin Level 3.8 g/dL (3.4-5.0); Alkaline Phosphatase 50 U/L (46-116); Anion Gap 9 mmol/L (8-16); Aspartate Amino Transferase 15 U/L (15-37); Bilirubin,Total 0.4 mg/dL (0.00-1.00); Blood Urea Nitrogen 13 mg/dL (7-18); Calcium 8.8 mg/dL (8.5-10.1); Carbon Dioxide 27 mmol/L (21-32); Chloride 106 mmol/L (98-108); Estimated Glomerular Filt Rate > 60; Glucose 101 mg/dL (70-99); Osmolality Calculated 294 mOsm/kg (285-295); Sodium 142 mmol/L (136-145); Total Protein 7.1 g/dL (6.4-8.2)
[2023-07-12 10:12] LABS: Band Neutrophils Percent 0 % (0-6); Eosinophils Percent Manual 0 % (1-6); Lymphocytes Absolute Manual 1.29 K/mm3 (1.1-4.5); Lymphocytes Percent Manual 30 % (18-44); Monocytes Percent Manual 7 % (3-9); Neutrophils Percent Manual 63 % (46-73); Platelet Estimate Adequate (Adequate); Total Cells Counted 100
[2023-07-12 10:14] LABS: Add Urine Microscopic? NO
== END 2023-10-10 23:59 | disposition home or self-care (01) ==
LOC: CHSLAB 08:53
PROVIDERS: PCP Internal Medicine; Visit Provider Internal Medicine
DX: Z51.81 Encounter for therapeutic drug level monitoring (principal); M06.09 Rheumatoid arthritis without rheumatoid factor, multiple sites; M54.59 Other low back pain; M15.0 Primary generalized (osteo)arthritis; M81.0 Age-related osteoporosis without current pathological fracture; Z79.899 Other long term (current) drug therapy
CPT/HCPCS: 36415; 80053; 81003; 85025

== ENCOUNTER 2023-08-04 08:22 | Outpatient (CLI) | payer MEDICARE, OTHER, SELFPAY ==
--- NOTE | ~2023-08-04 | MM_ITS ---
EXAMINATION: MM screening [facility] w kenrick HISTORY: Screening mammogram TECHNIQUE: Craniocaudal and mediolateral oblique 3-D tomosynthesis images were obtained and synthetic 2-D images were generated. CAD analysis was submitted and interpreted. COMPARISON: 08/02/2022, 06/04/2021, 05/29/2020 bilateral screening mammogram examinations BREAST PARENCHYMAL COMPOSITION: There are scattered areas of fibroglandular density. FINDINGS: Multiple scattered bilateral benign calcifications are again present. There is no evidence of suspicious mass, calcification, or architectural distortion to suggest malignancy in either breast . There has been no suspicious interval change. IMPRESSION: 1. No mammographic evidence of malignancy. 2. Recommend routine screening mammography in one year. BI-RADS Category 2: Benign finding(s). Reviewed, dictated and finalized at location A.
== END 2023-08-04 08:23 | disposition home or self-care (01) ==
LOC: CHSIMG 08:24
PROVIDERS: PCP Internal Medicine; Visit Provider Internal Medicine
DX: Z12.31 Encounter for screening mammogram for malignant neoplasm of breast (principal)
CPT/HCPCS: 77063; 77067

== ENCOUNTER 2023-09-22 09:25 | Outpatient (CLI) | payer MEDICARE, OTHER, SELFPAY ==
[2023-09-22 09:41] LABS: Basophils Absolute Auto 0.02 K/mm3 (0.00-0.10); Basophils Percent Auto 0.3 % (0.0-1.0); Eosinophils Absolute Auto 0.09 K/mm3 (0.02-0.50); Eosinophils Percent Auto 1.4 % (1.0-6.0); Hematocrit 38.9 % (35.0-42.0); Hemoglobin 12.6 g/dL (11.7-13.8); Immature Granulocyte Absolute 0.02 K/mm3 (0.00-0.00); Immature Granulocyte Percent A 0.3 % (0.0-0.0); Lymphocytes Absolute Auto 1.38 K/mm3 (1.10-4.50); Lymphocytes Percent Auto 21.3 % (18.0-42.0); Mean Corpuscular HGB Conc 32.4 g/dL (32.0-36.0); Mean Corpuscular Hemoglobin 31.5 pg (27.0-31.0); Mean Corpuscular Volume 97.3 fL (78.0-102.0); Mean Platelet Volume 10.2 fl (9.2-11.8); Monocytes Absolute Auto 0.48 K/mm3 (0.10-0.90); Monocytes Percent Auto 7.4 % (2.0-11.0); Neutrophils Absolute Auto 4.5 K/mm3 (1.7-7.2); Neutrophils Percent Auto 69.3 % (50.0-70.0); Platelet Count Result 235 K/mm3 (150-420); Red Cell Distribution Width 13.4 % (11.6-14.4); White Blood Count 6.5 K/mm3 (4.8-10.8)
[2023-09-22 09:42] LABS: Appearance Urine Clear (Clear); Bilirubin Urine Negative (Negative); Blood Urine 3+ (Negative); Color Urine Light Yellow (Yellow); Glucose Urine UA Negative (Negative); Ketones Urine Negative (Negative); Leukocyte Esterase Ur 2+ LEU/UL (Negative); Nitrate Urine Negative (Negative); Protein Urine 2+ (Negative)
[2023-09-22 09:47] LABS: Add Urine Microscopic? YES; Bacteria Urine 1+ /hpf; Squamous Epithelial Cell Urine Few /hpf (Few); WBC Urine 21-30 /hpf (0-3)
[2023-09-22 09:48] LABS: Mucus Urine Moderate /lpf
[2023-09-22 09:59] LABS: Hemoglobin A1C 5.7 % (<5.7)
[2023-09-22 10:32] LABS: Alanine Aminotransferase 13 U/L (14-59); Albumin Level 3.6 g/dL (3.4-5.0); Alkaline Phosphatase 62 U/L (46-116); Anion Gap 9 mmol/L (8-16); Aspartate Amino Transferase 17 U/L (15-37); Bilirubin,Total 0.6 mg/dL (0.00-1.00); Blood Urea Nitrogen 12 mg/dL (7-18); Calcium 9.1 mg/dL (8.5-10.1); Carbon Dioxide 30 mmol/L (21-32); Chloride 105 mmol/L (98-108); Cholesterol 142 mg/dL (0-200); Creatine Kinase 44 U/L (26-192); Estimated Glomerular Filt Rate > 60; Free T4 Free Thyroxine 1.11 ng/dL (0.76-1.46); Glucose 96 mg/dL (70-99); HDL Direct 43 mg/dL (40-60); LDL Cholesterol Calculated 81 mg/dL (<130); Osmolality Calculated 297 mOsm/kg (285-295); Potassium 3.8 mmol/L (3.5-5.1); Sodium 144 mmol/L (136-145); Thyroid Stimulating Hormone 1.17 uIU/mL (0.36-3.74); Total Protein 6.9 g/dL (6.4-8.2); Triglycerides 88 mg/dL (0-150)
== END 2023-09-22 09:26 | disposition home or self-care (01) ==
LOC: CHSLAB 09:29
PROVIDERS: PCP Internal Medicine; Visit Provider Internal Medicine
DX: E03.4 Atrophy of thyroid (acquired) (principal); I10 Essential (primary) hypertension; E78.2 Mixed hyperlipidemia; R73.01 Impaired fasting glucose; M06.09 Rheumatoid arthritis without rheumatoid factor, multiple sites; Z51.81 Encounter for therapeutic drug level monitoring; Z79.899 Other long term (current) drug therapy; M54.59 Other low back pain; M15.0 Primary generalized (osteo)arthritis; M81.0 Age-related osteoporosis without current pathological fracture
CPT/HCPCS: 36415; 80053; 80061; 81001; 82550; 83036; 84439; 84443; 84481; 85025; 87077; 87086; 87088; 87186

== ENCOUNTER 2023-10-03 09:36 | Outpatient (CLI) | payer MEDICARE, OTHER, SELFPAY ==
--- NOTE | ~2023-10-03 | XR_ITS ---
Clinical Indication: Cough PA and lateral views of the chest: Comparison: 01/16/2016 Findings: Stable calcified right basilar granuloma. The lungs are otherwise clear, without evidence o f focal consolidation or pleural effusion. Cardiomediastinal silhouette is within normal limits. Bon es and soft tissues are unremarkable. Impression: No significant abnormality. Reviewed, dictated and finalized at location . S BOBBIN WINDER Impression: No significant abnormality.
== END 2023-10-03 09:37 | disposition home or self-care (01) ==
LOC: CHSIMG 09:39
PROVIDERS: PCP Internal Medicine; Visit Provider Internal Medicine
DX: R05.1 Acute cough (principal)
CPT/HCPCS: 71046

== ENCOUNTER 2023-10-22 12:18 | Outpatient (CLI) | payer MEDICARE, OTHER, SELFPAY ==
--- NOTE | ~2023-10-22 | DEXA_ITS ---
Bone Density Report Name: AUGUSTINA SANTIAGO Age: 78 Sex: Female Ethnicity: White Date of : 1945 Indication: postmenopausal; screening for osteoporosis; parental hip fracture; height loss; prior fracture; asthma or emphysema; hysterectomy; rheumatoid arthritis; Referring Provider: Anival Diop Study: Bone densitometry was performed. Exam Date: October 22, 2023 Accession number: [id number] Bone Density: Region BMD T-score Z-score Classification AP Spine(L1-L4) 0.917 -1.2 1.3 Osteopenia Femoral Neck (Left) 0.839 -0.1 2.1 Normal Total Hip (Left) 0.965 0.2 2.1 Normal Femoral Neck (Right) 0.685 -1.5 0.7 Osteopenia Total Hip (Right) 0.846 -0.8 1.1 Normal Femoral Neck Mean 0.762 -0.8 1.4 Normal Total Hip Mean 0.905 -0.3 1.6 Normal World Health Organization criteria for BMD impression classify patients as: Normal (T-score at or above -1.0), Osteopenia (T-score between -1.0 and -2.5), or Osteoporosis (T-score at or below -2.5). 10-year Fracture Risk: FRAX not reported because: Prior hip or vertebral fracture Treated for osteoporosis Clinical Information Provided by Patient: Have had a previous hip or vertebral fracture Has had a low trauma fracture Parent has had a hip fracture Has rheumatoid arthritis Is being treated for osteoporosis Has used the following medications: Fosamax (i.e. alendronate), Vitamin D Has the following medical conditions: Asthma or Emphysema, Hysterectomy Patient maximum height was 65 Menopause Age: 50 No regular weight bearing exercise Drinks caffeinated beverages Onset of menses at age 14 Number of children 3 Impression: The patient has low bone mass, based on the Right Femoral Neck T-score. The patient has risk factors, including: parental hip fracture, previous fracture. Discussion: It is important to ask patients whether they are taking their medications and to encourage continued and appropriate compliance with their osteoporosis therapies to reduce fracture risk. It is also important to review their risk factors and encourage appropriate calcium and vitamin D intakes, exercise, fall prevention and other lifestyle measures. Follow-Up: Consider a repeat BMD and Vertebral Fracture Assessment (VFA) exam in 2 years or sooner if medically necessary, to reassess this patient's status. Reported by: Dr. Valerio Villalpando on 10/22/2023 12:45:00 PM. Reviewed, dictated and finalized at location A.
== END 2023-10-22 12:19 | disposition home or self-care (01) ==
LOC: CHSIMG 12:20
PROVIDERS: PCP Internal Medicine; Visit Provider Internal Medicine
DX: M81.0 Age-related osteoporosis without current pathological fracture (principal); M85.89 Other specified disorders of bone density and structure, multiple sites
CPT/HCPCS: 77080

== ENCOUNTER 2023-11-01 06:47 | Outpatient (CLI) | payer MEDICARE, OTHER, SELFPAY ==
--- NOTE | ~2023-11-01 | MR_ITS ---
EXAMINATION: MR knee LT wo con DATE: 11/01/2023 10:16 INDICATION: LEFT KNEE INJURY/effusion 3 wks ago,overall knee pain since TECHNIQUE: Magnetic resonance imaging (MRI) of the left knee was performed without intravenous contra st. Sequences included axial PD-weighted FS FSE, coronal PD-weighted FSE and PD-weighted FS FSE, sagi ttal PD-weighted FSE, and sagittal T2-weighted FS FSE. COMPARISON: None. FINDINGS: Medial compartment: Vertical tear at the meniscal root ligament. Mild extrusion. Near full-thickness cartilage loss. Mild osteophytosis. Lateral compartment: Bucket-handle type tear the flap displaced medially. Severe diffuse cartilage loss. Mild osteophytosi s. Patellofemoral compartment: Retinacula intact. Severe diffuse cartilage loss. Ligaments and tendons: The ACL, PCL, MCL, and LCL are intact. Remaining flexor and extensor tendons are intact. Fluid: Small volume joint fluid. Osseous/other: No suspicious focal or diffuse marrow signal. IMPRESSION: Vertical tear of the meniscal root ligament, medial meniscus. Bucket-handle type tear of the lateral meniscus. Small joint effusion. Tricompartmental osteoarthritis. Reviewed, dictated and finalized at location K. INE HEEL SEAT FITTER
== END 2023-11-01 06:48 | disposition home or self-care (01) ==
LOC: CHSIMG 06:48
PROVIDERS: PCP Internal Medicine; Visit Provider Internal Medicine
DX: S89.92XA Unspecified injury of left lower leg, initial encounter (principal); S83.242A Other tear of medial meniscus, current injury, left knee, initial encounter; S83.252A Bucket-handle tear of lateral meniscus, current injury, left knee, initial encounter; M25.462 Effusion, left knee; M17.12 Unilateral primary osteoarthritis, left knee
CPT/HCPCS: 73721

== ENCOUNTER 2024-04-03 09:10 | Outpatient (CLI) | payer MEDICARE, SELFPAY ==
[2024-04-03 09:30] LABS: Appearance Urine Clear (Clear); Basophils Absolute Auto 0.02 K/mm3 (0.00-0.10); Basophils Percent Auto 0.4 % (0.0-1.0); Bilirubin Urine Negative (Negative); Blood Urine Negative (Negative); Color Urine Light Yellow (Yellow); Eosinophils Percent Auto 1.8 % (1.0-6.0); Glucose Urine UA Negative (Negative); Hematocrit 37.4 % (35.0-42.0); Immature Granulocyte Absolute 0.02 K/mm3 (0.00-0.00); Immature Granulocyte Percent A 0.4 % (0.0-0.0); Ketones Urine Negative (Negative); Leukocyte Esterase Ur Trace (Negative); Lymphocytes Absolute Auto 1.24 K/mm3 (1.10-4.50); Lymphocytes Percent Auto 22.5 % (18.0-42.0); Mean Corpuscular HGB Conc 32.1 g/dL (32-36); Mean Corpuscular Hemoglobin 31.1 pg (27.0-31.0); Mean Corpuscular Volume 96.9 fL (78.0-102.0); Mean Platelet Volume 10.8 fl (9.2-11.8); Monocytes Absolute Auto 0.59 K/mm3 (0.10-0.90); Monocytes Percent Auto 10.7 % (2.0-11.0); Neutrophils Absolute Auto 3.54 K/mm3 (1.70-7.20); Neutrophils Percent Auto 64.2 % (50.0-70.0); Nitrate Urine Negative (Negative); Platelet Count Result 200 K/mm3 (150-420); Protein Urine Negative (Negative); Red Blood Count 3.86 M/mm3 (4.20-5.40); Urobilinogen Urine 0.2 mg/dL (0.2-1.0); White Blood Count 5.5 K/mm3 (4.8-10.8)
[2024-04-03 09:35] LABS: Add Urine Microscopic? YES; Bacteria Urine Trace /hpf; RBC Urine 0-2 /hpf (0-2); Squamous Epithelial Cell Urine Few /hpf (Few); WBC Urine 0-3 /hpf (0-3)
[2024-04-03 09:36] LABS: Mucus Urine Moderate /lpf
[2024-04-03 09:39] LABS: Hemoglobin A1C 5.6 % (<5.7)
[2024-04-03 10:33] LABS: Alanine Aminotransferase 20 U/L (14-59); Albumin Level 3.6 g/dL (3.4-5.0); Alkaline Phosphatase 41 U/L (46-116); Anion Gap 7 mmol/L (4-12); Aspartate Amino Transferase 18 U/L (15-37); Bilirubin,Total 0.7 mg/dL (0.00-1.00); Blood Urea Nitrogen 12 mg/dL (7-18); Calcium 8.5 mg/dL (8.5-10.1); Carbon Dioxide 32 mmol/L (21-32); Chloride 106 mmol/L (98-108); Cholesterol 119 mg/dL (0-200); Creatine Kinase 40 U/L (26-192); Estimated Glomerular Filt Rate > 60; Free T3 2.36 pg/mL (2.18-3.98); Free T4 Free Thyroxine 1.33 ng/dL (0.76-1.46); Glucose 106 mg/dL (70-99); HDL Direct 57 mg/dL (40-60); LDL Cholesterol Calculated 54 mg/dL (<130); NT Pro B Type Natriuretic Pept 131 pg/mL (0-450); Osmolality Calculated 299 mOsm/kg (285-295); Potassium 3.9 mmol/L (3.5-5.1); Sodium 145 mmol/L (136-145); Thyroid Stimulating Hormone 1.55 uIU/mL (0.36-3.74); Total Protein 6.5 g/dL (6.4-8.2); Triglycerides 41 mg/dL (0-150)
== END 2024-04-03 09:11 | disposition home or self-care (01) ==
LOC: CHSLAB 09:13
PROVIDERS: PCP Internal Medicine; Visit Provider Internal Medicine
DX: E03.4 Atrophy of thyroid (acquired) (principal); I10 Essential (primary) hypertension; R73.01 Impaired fasting glucose; E78.2 Mixed hyperlipidemia; M06.9 Rheumatoid arthritis, unspecified; I48.0 Paroxysmal atrial fibrillation; I50.9 Heart failure, unspecified
CPT/HCPCS: 36415; 80053; 80061; 81001; 82550; 83036; 83735; 83880; 84439; 84443; 84481; 85025

== ENCOUNTER 2024-08-04 14:04 | Outpatient (RCR) | payer MEDICARE, SELFPAY ==
[2024-08-04 14:24] LABS: Basophils Absolute Auto 0.02 K/mm3 (0.00-0.10); Basophils Percent Auto 0.2 % (0.0-1.0); Eosinophils Absolute Auto 0.06 K/mm3 (0.02-0.50); Eosinophils Percent Auto 0.7 % (1.0-6.0); Hematocrit 38.4 % (35.0-42.0); Hemoglobin 12.8 g/dL (11.7-13.8); Immature Granulocyte Absolute 0.03 K/mm3 (0.00-0.00); Immature Granulocyte Percent A 0.3 % (0.0-0.0); Lymphocytes Absolute Auto 1.78 K/mm3 (1.10-4.50); Lymphocytes Percent Auto 20.5 % (18.0-42.0); Mean Corpuscular HGB Conc 33.3 g/dL (32-36); Mean Corpuscular Hemoglobin 31.6 pg (27.0-31.0); Mean Corpuscular Volume 94.8 fL (78.0-102.0); Mean Platelet Volume 10.2 fl (9.2-11.8); Monocytes Absolute Auto 0.61 K/mm3 (0.10-0.90); Neutrophils Absolute Auto 6.17 K/mm3 (1.70-7.20); Neutrophils Percent Auto 71.3 % (50.0-70.0); Platelet Count Result 254 K/mm3 (150-420); Red Blood Count 4.05 M/mm3 (4.20-5.40); Red Cell Distribution Width 13.7 % (11.6-14.4); White Blood Count 8.7 K/mm3 (4.8-10.8)
[2024-08-04 14:32] LABS: Color Urine Yellow (Yellow)
[2024-08-04 14:33] LABS: Add Urine Microscopic? NO; Appearance Urine Clear (Clear); Bilirubin Urine Negative (Negative); Blood Urine Negative (Negative); Glucose Urine UA Negative (Negative); Ketones Urine Negative (Negative); Leukocyte Esterase Ur Negative (Negative); Nitrate Urine Negative (Negative); Protein Urine Negative (Negative); Urobilinogen Urine Negative mg/dL (0.2-1.0)
[2024-08-04 14:52] LABS: Alanine Aminotransferase 30 U/L (14-59); Albumin Level 4.1 g/dL (3.4-5.0); Alkaline Phosphatase 55 U/L (46-116); Anion Gap 8 mmol/L (4-12); Aspartate Amino Transferase 27 U/L (15-37); Bilirubin,Total 0.4 mg/dL (0.00-1.00); Blood Urea Nitrogen 17 mg/dL (7-18); Calcium 9.1 mg/dL (8.5-10.1); Carbon Dioxide 30 mmol/L (21-32); Chloride 105 mmol/L (98-108); Estimated Glomerular Filt Rate > 60; Glucose 108 mg/dL (70-99); Osmolality Calculated 298 mOsm/kg (285-295); Potassium 3.8 mmol/L (3.5-5.1); Sodium 143 mmol/L (136-145); Total Protein 7.1 g/dL (6.4-8.2)
== END 2024-11-02 23:59 | disposition home or self-care (01) ==
LOC: CHSLAB 14:04
PROVIDERS: PCP Internal Medicine
DX: Z51.81 Encounter for therapeutic drug level monitoring (principal); M06.09 Rheumatoid arthritis without rheumatoid factor, multiple sites; M15.9 Polyosteoarthritis, unspecified; Z79.899 Other long term (current) drug therapy
CPT/HCPCS: 36415; 80053; 81003; 85025; 87086; 87088

== ENCOUNTER 2024-08-16 12:18 | Outpatient (CLI) | payer MEDICARE, SELFPAY ==
--- NOTE | ~2024-08-16 | MM_ITS ---
EXAMINATION: MM screening [facility] w kenrick HISTORY: Screening TECHNIQUE: Craniocaudal and mediolateral oblique 3-D tomosynthesis images were obtained and synthetic 2-D images were generated. CAD analysis was submitted and interpreted. COMPARISON: Comparison to multiple prior studies sequentially, with oldest reviewed study dated 06/04. BREAST PARENCHYMAL COMPOSITION: Not dense: There are scattered areas of fibroglandular density. FINDINGS: There are bilateral symmetric benign-appearing calcifications, most likely secretory calcif ications. There is no evidence of suspicious mass, calcification, or architectural distortion to sugg est malignancy in either breast. There has been no suspicious interval change. IMPRESSION: 1. No mammographic evidence of malignancy. 2. Recommend routine screening mammography in one year. BI-RADS Category 2: Benign finding(s). Reviewed, dictated and finalized at location B.
== END 2024-08-16 12:19 | disposition home or self-care (01) ==
LOC: CHSIMG 12:19
PROVIDERS: PCP Internal Medicine; Visit Provider Internal Medicine
DX: Z12.31 Encounter for screening mammogram for malignant neoplasm of breast (principal)
CPT/HCPCS: 77063; 77067

== ENCOUNTER 2024-12-30 12:38 | Outpatient (RCR) | payer MEDICARE, SELFPAY ==
[2024-11-04 09:35] LABS: Basophils Absolute Auto 0.01 K/mm3 (0.00-0.10); Basophils Percent Auto 0.2 % (0.0-1.0); Eosinophils Absolute Auto 0.07 K/mm3 (0.02-0.50); Eosinophils Percent Auto 1.2 % (1.0-6.0); Hematocrit 39.8 % (35.0-42.0); Hemoglobin 13.5 g/dL (11.7-13.8); Immature Granulocyte Absolute 0.01 K/mm3 (0.00-0.00); Immature Granulocyte Percent A 0.2 % (0.0-0.0); Lymphocytes Absolute Auto 1.49 K/mm3 (1.10-4.50); Lymphocytes Percent Auto 25.9 % (18.0-42.0); Mean Corpuscular HGB Conc 33.9 g/dL (32-36); Mean Corpuscular Hemoglobin 32.4 pg (27.0-31.0); Mean Corpuscular Volume 95.4 fL (78.0-102.0); Mean Platelet Volume 9.8 fl (9.2-11.8); Monocytes Absolute Auto 0.55 K/mm3 (0.10-0.90); Monocytes Percent Auto 9.5 % (2.0-11.0); Neutrophils Absolute Auto 3.63 K/mm3 (1.70-7.20); Platelet Count Result 244 K/mm3 (150-420); Red Blood Count 4.17 M/mm3 (4.20-5.40); Red Cell Distribution Width 13.4 % (11.6-14.4); White Blood Count 5.8 K/mm3 (4.8-10.8)
[2024-11-04 09:38] LABS: Add Urine Microscopic? YES; Appearance Urine Clear (Clear); Bilirubin Urine Negative (Negative); Blood Urine Negative (Negative); Color Urine Yellow (Yellow); Glucose Urine UA Negative (Negative); Ketones Urine Negative (Negative); Leukocyte Esterase Ur Negative LEU/UL (Negative); Nitrate Urine Negative (Negative); Protein Urine Trace (Negative); Specific Grav Ur >= 1.030 (1.010-1.020); Urobilinogen Urine 0.2 mg/dL (0.2-1.0)
[2024-11-04 09:55] LABS: Bacteria Urine Trace /hpf; RBC Urine None seen /hpf (0-2); Squamous Epithelial Cell Urine Rare /hpf (Few); WBC Urine None seen /hpf (0-3)
[2024-11-04 10:28] LABS: Alanine Aminotransferase 25 U/L (14-59); Albumin Level 3.9 g/dL (3.4-5.0); Alkaline Phosphatase 51 U/L (46-116); Anion Gap 9 mmol/L (4-12); Aspartate Amino Transferase 22 U/L (15-37); Bilirubin,Total 0.6 mg/dL (0.00-1.00); Blood Urea Nitrogen 14 mg/dL (7-18); Calcium 9.1 mg/dL (8.5-10.1); Carbon Dioxide 30 mmol/L (21-32); Chloride 106 mmol/L (98-108); Estimated Glomerular Filt Rate > 60; Glucose 101 mg/dL (70-99); Osmolality Calculated 300 mOsm/kg (285-295); Potassium 3.9 mmol/L (3.5-5.1); Sodium 145 mmol/L (136-145); Total Protein 6.9 g/dL (6.4-8.2)
[2024-12-30 13:11] LABS: Basophils Absolute Auto 0.01 K/mm3 (0.00-0.10); Basophils Percent Auto 0.2 % (0.0-1.0); Eosinophils Absolute Auto 0.07 K/mm3 (0.02-0.50); Eosinophils Percent Auto 1.1 % (1.0-6.0); Hematocrit 39.3 % (35.0-42.0); Hemoglobin 12.6 g/dL (11.7-13.8); Immature Granulocyte Absolute 0.01 K/mm3 (0.00-0.00); Immature Granulocyte Percent A 0.2 % (0.0-0.0); Lymphocytes Absolute Auto 1.54 K/mm3 (1.10-4.50); Lymphocytes Percent Auto 25.2 % (18.0-42.0); Mean Corpuscular HGB Conc 32.1 g/dL (32-36); Mean Corpuscular Volume 96.8 fL (78.0-102.0); Mean Platelet Volume 10.8 fl (9.2-11.8); Monocytes Percent Auto 6.5 % (2.0-11.0); Neutrophils Absolute Auto 4.08 K/mm3 (1.70-7.20); Neutrophils Percent Auto 66.8 % (50.0-70.0); Platelet Count Result 265 K/mm3 (150-420); Red Blood Count 4.06 M/mm3 (4.20-5.40); White Blood Count 6.1 K/mm3 (4.8-10.8)
[2024-12-30 14:14] LABS: Alanine Aminotransferase 32 U/L (14-59); Albumin Level 3.9 g/dL (3.4-5.0); Alkaline Phosphatase 64 U/L (46-116); Anion Gap 8 mmol/L (4-12); Aspartate Amino Transferase 23 U/L (15-37); Bilirubin,Total 0.5 mg/dL (0.00-1.00); Blood Urea Nitrogen 10 mg/dL (7-18); Calcium 8.6 mg/dL (8.5-10.1); Carbon Dioxide 31 mmol/L (21-32); Chloride 106 mmol/L (98-108); Estimated Glomerular Filt Rate > 60; Glucose 110 mg/dL (70-99); Osmolality Calculated 300 mOsm/kg (285-295); Potassium 3.8 mmol/L (3.5-5.1); Sodium 145 mmol/L (136-145); Total Protein 6.9 g/dL (6.4-8.2)
[2024-12-30 14:18] LABS: Add Urine Microscopic? YES; Appearance Urine Clear (Clear); Bilirubin Urine Negative (Negative); Blood Urine Negative (Negative); Color Urine Light Yellow (Yellow); Glucose Urine UA Negative (Negative); Ketones Urine Negative (Negative); Leukocyte Esterase Ur Trace LEU/UL (Negative); Nitrate Urine Negative (Negative); Protein Urine Negative (Negative); Urobilinogen Urine 0.2 mg/dL (0.2-1.0)
[2024-12-30 14:24] LABS: Bacteria Urine Rare /hpf; RBC Urine 0-2 /hpf (0-2); Squamous Epithelial Cell Urine Few /hpf (Few); WBC Urine 0-3 /hpf (0-3)
== END 2025-02-02 23:59 | disposition home or self-care (01) ==
LOC: CHSLAB 12:38
PROVIDERS: PCP Internal Medicine; Visit Provider Internal Medicine
DX: M06.09 Rheumatoid arthritis without rheumatoid factor, multiple sites (principal); M15.9 Polyosteoarthritis, unspecified; Z51.81 Encounter for therapeutic drug level monitoring; Z79.899 Other long term (current) drug therapy
CPT/HCPCS: 36415; 80053; 81001; 85025

== ENCOUNTER 2025-02-01 09:39 | Outpatient (CLI) | payer MEDICARE, SELFPAY ==
[2025-02-01 10:14] LABS: Basophils Absolute Auto 0.01 K/mm3 (0.00-0.10); Basophils Percent Auto 0.2 % (0.0-1.0); Eosinophils Absolute Auto 0.22 K/mm3 (0.02-0.50); Hematocrit 42.2 % (35.0-42.0); Hemoglobin 13.5 g/dL (11.7-13.8); Immature Granulocyte Absolute 0.02 K/mm3 (0.00-0.00); Immature Granulocyte Percent A 0.4 % (0.0-0.0); Lymphocytes Absolute Auto 1.53 K/mm3 (1.10-4.50); Lymphocytes Percent Auto 27.7 % (18.0-42.0); Mean Corpuscular Volume 96.8 fL (78.0-102.0); Mean Platelet Volume 10.2 fl (9.2-11.8); Monocytes Absolute Auto 0.49 K/mm3 (0.10-0.90); Monocytes Percent Auto 8.9 % (2.0-11.0); Neutrophils Absolute Auto 3.26 K/mm3 (1.70-7.20); Neutrophils Percent Auto 58.8 % (50.0-70.0); Platelet Count Result 260 K/mm3 (150-420); Red Blood Count 4.36 M/mm3 (4.20-5.40); Red Cell Distribution Width 13.6 % (11.6-14.4); White Blood Count 5.5 K/mm3 (4.8-10.8)
[2025-02-01 10:17] LABS: Add Urine Microscopic? NO; Appearance Urine Clear (Clear); Bilirubin Urine Negative (Negative); Blood Urine Negative (Negative); Color Urine Light Yellow (Yellow); Glucose Urine UA Negative (Negative); Ketones Urine Negative (Negative); Leukocyte Esterase Ur Negative LEU/UL (Negative); Nitrate Urine Negative (Negative); Protein Urine Negative (Negative); Specific Grav Ur 1.015 (1.010-1.020); Urobilinogen Urine 0.2 mg/dL (0.2-1.0); pH Urine 6.5 (5.0-8.0)
--- OUTSIDE RECORDS SUMMARY | 2025-02-01 10:46 | XMS_ITS | Encounter Summary ---
Author Organization [facility] Healthcare Address [address] [place] [address] Care Team Providers Care Manager Of Exhibitions And Collections Name Role Phone Anival Diop MD Primary Care Provider + [phone] Alexandru Manley MD Unavailable [phone] Encounter Details Date Type Department Care Team (Late st Contact Info) Description 09/26/2020 Telephone [facility] - Interventional Radiology [address] [place] [address] Taya Holman RN Social History Tobacco Use Types Packs/Day Years Used Date Smoking Tobacco: Never Smokeless Tobacco: Never Alcohol Use Standard Drinks/Week Comments No 0 (1 standard drink = 0.6 oz pur e alcohol) PHQ-2 Answer Date Recorded PHQ-2 Score 0 07/16/2019 Comments No Sex and Gender Information Value Date Recorded Sex Assigned at Not on file 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 Author CCM Chronic Pain Care Plan Chronic Care Management No Jesús Tao, SHAQUILLE Note: Problem: Chronic Pain Goals: 1. Minimize further functional decline 2. Maximize quality of life 3. Control pain Strategies: - Activity/exercise program recommendation - Conservative stepwise pain medicine strategy with multi-disciplinary approach - Recommend healthy lifestyle strategies and compensatory methods as needed documented as of this encounter Visit Diagnoses Not on filedocumented in this encounter Additional Health Concerns Infection Onset Date Last Indicated Resolved Time COVID: Recovered Comment:Patient meets COVID Recovered criteria based on assessment by BOAZ Price. See 3.1.21 Anesthesia Pre-procedure Evaluation note and positive COVID result from 12.3.20 in chart. Routine retesting not recommended for 120 days/expiration date below without an Infectious Disease physician consult. 11/05/2020 01/22/2021 03/04/2021 3:05 AM C DT documented as of this encounter Care Teams Manager Of Exhibitions And Collections Relationship Specialty Start Date End Date Anival Diop MD [address] [place] [address] PCP - General 02/21/17 Alexandru Manley MD [address] [place] [address] Consulting Physician Cardiology 08/01/21 documented as of this encounter
--- OUTSIDE RECORDS SUMMARY | 2025-02-01 10:46 | XMS_ITS | Encounter Summary ---
Author Organization [facility] Healthcare Address [address] [place] [address] Care Team Providers Care Iron Pourer Name Role Phone Anival Diop MD Primary Care Provider + [phone] Alexandru Manley MD Unavailable [phone] Encounter Details Date Type Department Care Team (Late st Contact Info) Description 09/26/2020 Telephone [facility] - Imaging [address] [place] [address] Transcribed Order, Provider Social History Tobacco Use Types Packs/Day Years Used Date Smoking Tobacco: Never Smokeless Tobacco: Never Alcohol Use Standard Drinks/Week Comments No 0 (1 standard drink = 0.6 oz pur e alcohol) PHQ-2 Answer Date Recorded PHQ-2 Score 0 07/16/2019 Comments No Sex and Gender Information Value Date Recorded Sex Assigned at Not on file 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 Author CCM Chronic Pain Care Plan Chronic Care Management No Jesús Tao RN Note: Problem: Chronic Pain Goals: 1. Minimize [...] documented as of this encounter Care Teams Iron Pourer Relationship Specialty Start Date End Date Anival Diop MD [address] [place], [place] [id number] PCP - General 02/21/17 Alexandru Manley MD [address] [place] [address] Consulting Physician Cardiology 08/01/21 documented as of this encounter
--- OUTSIDE RECORDS SUMMARY | 2025-02-01 10:46 | XMS_ITS | Clinical Summary ---
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 Active calcitRIOL (ROCALTROL) 0.5 mcg capsule Take 1 capsule (0.5 mcg total) by mouth daily 05/15/20 20 Active montelukast (SINGULAIR) 10 mg tablet Take 1 tablet (10 mg total) by mouth nightly Active fluticasone propionate (FLONASE) 50 mcg/actuation nasal spray Administer 1 spray into each nostril daily Active Eliquis 5 mg tabletIndicatio ns:VTE Prophylaxis Take 1 tablet (5 mg total) by mouth 2 (two) times a day 07/11/20 21 Active carvediloL (COREG) 25 mg tablet Take 1 tablet (25 mg total) by mouth 2 (two) times a day with meals 180 tablet 3 07/18/20 21 Active NIFEdipine XL 30 mg 24 hr tablet TAKE ONE TABLET BY MOUTH DAILY 90 tablet 3 06/10/20 22 Active cholecalciferol (VITAMIN D-3) 2000 unit tablet Take 1 tablet (2,000 Units total) by mouth daily Active diclofenac sodium (VOLTAREN) 1 % gelIndications: Osteoarthritis Apply 1 Application topically as needed (pain) 09/03/20 22 Active acetaminophen ER (Tylenol Arthritis Pain) 650 mg 8 hr tabletIndicatio ns:Pain Take 1 tablet (650 mg total) by mouth 2 (two) times a day Active folic acid (FOLVITE) 1 mg tablet TAKE ONE TABLET BY MOUTH DAILY 90 tablet 4 02/09/20 24 Active furosemide (LASIX) 20 mg tablet TAKE ONE TABLET BY MOUTH DAILY 90 tablet 3 08/09/20 24 Active rosuvastatin (CRESTOR) 10 mg tablet 08/23/20 24 Active methotrexate 2.5 mg tabletIndicatio ns:Rheumatoid Arthritis Take 6 tablets (15 mg total) by mouth every 7 days 72 tablet 11/09/20 24 Active alendronate (FOSAMAX) 70 mg tablet TAKE ONE TABLET BY MOUTH EVERY 7 DAYS EMPTY STOMACH. DO NOT LIE DOWN OR EAT FOR 1/2 HOUR AFTER TAKING 12 tablet 2 01/26/20 25 Active alendronate (FOSAMAX) 70 mg tablet TAKE ONE TABLET BY MOUTH EVERY 7 DAYS EMPTY STOMACH. DO NOT LIE DOWN OR EAT FOR 1/2 HOUR AFTER TAKING 12 tablet 2 08/09/20 24 025 Discontinued Active Problems Problem Noted Date Diagnosed Date SVT (supraventricular tachycardia) 09/04/2021 Atrial flutter 07/18/2021 Advice given about 2019 novel coronavirus by tel ephone 04/18/2020 Assessment & Plan (06/15/2020 10:49 PM CDT): You may review the current [place] [employer] Covid-19 clinical guidance for Patients with Rheumatic Diseases if you copy and paste the link below into your web browser: [email or web address] [email or web address] Of course, methotrexate and Humira should be placed on hold in the event you were to become ill and resumed only after complete recovery. Assessment & Plan (04/18/2020 1:13 PM CDT): The full impact of autoimmune diseases and immunomodulatory medications on susceptibility and complications of coronavirus disease is not yet studied. Because we have ergonomic specialist with this new virus we do not currently have absolute answers. Currently we are not recommending that patients stop their medications during this period of uncertainty. We do not want to risk letting your disease flare. The usual CDC precautions for minimizing coronavirus risk are appropriate. Frequently wash your hands with soap and water for at least 20 seconds. When soap and running water are unavailable, use an alcohol-based hand rub with at least 60% alcohol. Always wash hands that are visibly soiled. Avoid touching your eyes, nose, or mouth with unwashed hands. Avoid close contact with people who are sick and maintain social distancing. The CDC has recommended that ALL persons wear a fabric mask when out in public. Obviously this is a fast-moving issue and the CDC is providing regular updates as the course and extent of the epidemic is monitored. You may keep up to date at the CDC website: www.coronavirus.gov You may also find more information relevant to your questions at the [employer] webpage: arthritis.org. Click on the Coronavirus banner. It is important that you continue to adhere to the alrm-tu-bswi orders for the time being, especially in view of your potentially immunocompromised status. Feel free to reach out to us if you have additional questions after you review this information. You may review the current [place] [employer] Covid-19 clinical guidance for Patients with Rheumatic Diseases if you copy and paste the link below into your web browser: [email or web address] [email or web address] wgwhpxg-[email or web address]-[email or web address].pdf Of course, methotrexate should be placed on hold in the event you were to become ill. Spinal stenosis of lumbar re gion with neurogenic claudication 01/31/2020 Assessment & Plan (06/15/2020 10:51 PM CDT): Follow up per pain management. Assessment & Plan (04/18/2020 1:14 PM CDT): See above. DDD (degenerative disc disease), lumbar 09/21/20 19 Overview (01/15/2020): Images from the original note were not included. XR Spine Lumbar Routine Status: Final result Study Result Lumbar x-rays HISTORY: Radiculopathy comparison: None available FINDINGS: Lumbar vertebral body stature is preserved. There is a slight curvature to the left in the upper lumbar spine and there is a mild anterolisthesis of L4 on L5. Lumbar disc spaces are relatively preserved with some diffuse mild endplate irregularity and minimal radiographic spondylosis. There does appear to be some facet arthropathy and this more prominent in the lower lumbar spine where there are some foraminal encroachment. IMPRESSION: Slight curvature to the left and minimal anterolisthesis at L4-L5. Relatively mild spondylitic disease with prominent lower lumbar facet arthropathy. Electronically signed by: IDALIA ROSALES Result History XR Spine Lumbar Routine (Order #[id number]) on 09/21/2019 - Order Result History Report MRI Lumbar Spine WO Contrast Order: [id number] Status: Final result Visible to patient: No (Not Released) Dx: DDD (degenerative disc disease), lumbar Details Reading Physician Reading Date Result Priority Glenny Munoz MD [phone] 01/11/2020 Narrative & Impression MRI of lumbar spine without IV Contrast, 01/11/2020 HISTORY: Low back pain, right leg numbness, pain in both lower extremities, worsening COMPARISON: Lumbar radiographs 09/21/2019 Conus: Normal tip at upper L1. Alignment: No significant scoliosis, see below for any listhesis by level Marrow: Within normal limits T11-12: No canal or foraminal narrowing. Mild disc space narrowing. Mild disc bulging and mild to moderate facet arthropathy. T12-L1: No canal or foraminal compromise. L1-L2: No canal or foraminal compromise. Mild circumferential disc bulging and left greater than right facet arthropathy. L2-L3: No canal or foraminal compromise. Mild disc bulging and facet arthropathy. L3-L4: Moderate circumferential disc bulging, mild ligamentous prominence and mild to moderate bilateral facet arthropathy. There is moderate to severe right foraminal narrowing due to right foraminal protrusion and facet arthropathy. There is slight fat stranding around the right exiting L3 nerve root. The left neural foramen is patent. L4-L5: There is grade 1 anterolisthesis of L4 on L5. There is moderate circumferential bulging, moderate ligamentous redundancy/prominence and moderate to severe facet arthropathy. This results in moderate circumferential canal stenosis and thecal sac narrowing. There is mild bilateral foraminal narrowing. L5-S1: No significant canal or foraminal compromise. It appears that L5 is physiologically sacralized. IMPRESSION: 1. Greatest right-sided finding is a foraminal protrusion at L3-4. 2. L4-5 anterolisthesis and moderate canal stenosis. 3. Clinical correlation recommended. Electronically signed by: Glenny Munoz M.D. Specimen Collected: 01/11/20 10:41 Assessment & Plan (04/18/2020 1:11 PM CDT): She was to be seen by pain management, but appointment deferred due to Covid-19 restrictions. She will call to see if they have begun rescheduling. Assessment & Plan (12/29/2019 10:11 AM CLINICAL ADVISOR): XR Spine Lumbar Routine Status: Final result Study Result Lumbar x-rays HISTORY: Radiculopathy comparison: None available FINDINGS: Lumbar vertebral body stature is preserved. There is a slight curvature to the left in the upper lumbar spine and there is a mild anterolisthesis of L4 on L5. Lumbar disc spaces are relatively preserved with some diffuse mild endplate irregularity and minimal radiographic spondylosis. There does appear to be some facet arthropathy and this more prominent in the lower lumbar spine where there are some foraminal encroachment. IMPRESSION: Slight curvature to the left and minimal anterolisthesis at L4-L5. Relatively mild spondylitic disease with prominent lower lumbar facet arthropathy. Electronically signed by: IDALIA ROSALES Result History XR Spine Lumbar Routine (Order #[id number]) on 09/21/2019 - Order Result History Report No improvement with physical therapy. Pain as much as 9/10 on some occasions. Radiates to both legs. Will pursue MRI with possible subsequent referral to pain management pend same. Assessment & Plan (09/21/2019 10:36 AM CDT): 2-3 week history severe bilateral gluteal pain with radiation to legs. Suspected lumbar radiculopathy. Will obtain x-rays lumbar spine. Prescribe methylprednisolone dosepack and gabapentin as per med orders. Consider physical therapy pend x-ray review. MR lumbar spine if no improvement with above outlined therapies. DDD (degenerative disc disease), cervical 2018 Primary osteoarthritis involving multiple joints 03/09/2019 Assessment & Plan (03/10/2024 1:26 PM CDT): For additional pain relief, you can add arthritis strength acetaminophen (650 mg in each sustained release tablet) which comes under a variety of name brands but may be dosed at 2 tablets in the morning and 2 tablets in the evening. In your case I recommend limiting total acetaminophen dose of no more than 3000 mg in a 24 hour period unless we discuss further. Please make sure to check any aocm-ppu-iwyyerm products you may take as well as any prescription pain relievers that include acetaminophen as you will need to include those doses in the 3000 mg limit of the medication. When taking acetaminophen regularly, I ask that you avoid alcohol or modify to only 1 alcohol drink a few days a week. You can use topical diclofenac gel massaged in to hands and knees three times a day for relief of arthritic joint pain. Voltaren gel is a common brand name but there are certainly other store- brand/generic options. Just make sure that the active ingredient is diclofenac For optimal benefit, avoid washing hands for about 30 minutes after application. Also remember that this topical gel contains a non-steroidal pain reliever and should be kept away from children and pets. IASI today. Assessment & Plan (03/09/2019 12:06 PM CDT): Increased pain R > L knee with small effusion on exam. Will update imaging as per orders. Consider return for corticosteroid injection. Complains as well of increased pain cervical spine especially with rotation to L. Unable to sleep on stomach due to neck pain. Suspected degenerative disc disease. X-rays ordered. Consider physical therapy pend review of same. She derives adequate symptom relief with acetaminophen for now. Trigger finger, left ring finger 12/09/2018 Assessment & Plan (12/09/2018 11:23 AM CLINICAL ADVISOR): X-ray today. Return for steroid injection pend review of same. In the meantime apply moist heat and exercise hand with foam ball or exercise putty. Chronic fatigue 09/07/2018 Assessment & Plan (09/07/2018 12:23 PM CDT): Recent comprehensive exam unrevealing. Copies of labs requested. Update lab as per orders. Postmenopausal bone loss 09/07/2018 Overview (11/19/2018): Dexa Axial Skeleton Bone Density 1 or 2 Site Order: [id number] Status: Final result Visible to patient: No (Not Released) Dx: Postmenopausal bone loss Details Reading Physician Reading Date Result Priority Israel Rios MD 11/18/2018 Narrative EXAM: Bone mineral density [facility]. HISTORY: Postmenopausal. Loss of height. Assess for osteoporosis. DXA BMD was done at [facility] on a [employer]. Precision testing at this site has resulted in a least significant change of: Lumbar spine 0.035 g/sq cm Hip 0.025 g/sq cm BMD L1-L4 is 0.964 g/sq cm corresponding to a T score of -0.8. BMD left femoral neck is 0.871 g/sq cm corresponding to a T score of 0.2. BMD total left hip is 0.985 g/sq cm corresponding to a T score of 0.4. COMPARISON: None. Impression BMD near the young adult mean. Based on BMD alone, there is no increased risk of fragility fracture. If followup is to be done, for technical reasons, it should be performed on this same machine. Electronically signed by: Israel Rios M.D. Assessment & Plan (06/15/2020 10:50 PM CDT): Follow up DEXA due 10/2020. We recommend you take Caltrate D once daily as well as increase dietary calcium as well. Exercising regularly (walking and light weights) will promote bone health. Assessment & Plan (03/09/2019 12:05 PM CDT): We recommend you take Caltrate D once daily as well as increase dietary calcium as well. Exercising regularly (walking and light weights) will promote bone health. A Guide to Calcium-Rich Foods We all know that milk is a great source of calcium, but you may be surprised by all the different foods you can work into your diet to reach your daily recommended amount of calcium. Use the guide below to get ideas of additional calcium-rich foods to add to your weekly shopping list. Produce Serving Size Estimated Calcium* Jose L greens, frozen 8 oz 360 mg Broccoli camron 8 oz 200 mg Kale, frozen 8 oz 180 mg Soy Beans, green, boiled 8 oz 175 mg Bok [place], cooked, boiled 8 oz 160 mg Figs, dried 2 figs 65 mg Broccoli, fresh, cooked 8 oz 60 mg Oranges 1 whole 55 mg Seafood Serving Size Estimated Calcium* Sardines, canned with bones 3 oz 325 mg [place], canned with bones 3 oz 180 mg Shrimp, canned 3 oz 125 mg Dairy Serving Size Estimated Calcium* Ricotta, part-skim 4 oz 335 mg Yogurt, plain, low-fat 6 oz 310 mg Milk, skim, low-fat, whole 8 oz 300 mg Yogurt with fruit, low-fat 6 oz 260 mg Mozzarella, part-skim 1 oz 210 mg Cheddar 1 oz 205 mg Yogurt, Czech 6 oz 200 mg [place] Cheese 1 oz 195 mg Feta Cheese 4 oz 140 mg Cottage Cheese, 2% 4 oz 105 mg Frozen yogurt, vanilla 8 oz 105 mg Ice Cream, vanilla 8 oz 85 mg Parmesan 1 tbsp 55 mg Fortified Food Serving Size Estimated Calcium* [place] milk, rice milk or soy milk, fortified 8 oz 300 mg [place] juice and other fruit juices, fortified 8 oz 300 mg Tofu, prepared with calcium 4 oz 205 mg Waffle, frozen, fortified 2 pieces 200 mg Oatmeal, fortified 1 packet 140 mg Italian muffin, fortified 1 muffin 100 mg Cereal, fortified 8 oz 100-1,000 mg Other Serving Size Estimated Calcium* Mac & cheese, frozen 1 package 325 mg Pizza, cheese, frozen 1 serving 115 mg Pudding, chocolate, prepared with 2% milk 4 oz 160 mg Beans, baked, canned 4 oz 160 mg *The calcium content listed for most foods is estimated and can vary due to multiple factors. Check the food label to determine how much calcium is in a particular product. Chronic midline thoracic back pain 01/20/2018 Assessment & Plan (01/20/2018 11:24 AM CLINICAL ADVISOR): Patient with history of injury mid-thoracic spine (age 16) [place]. Never imaged. She now has increased dorsal spine pain with sharp pain with sudden movements. Will obtain x-ray. Further plans pend same. Encounter for long-term (cur rent) use of high-risk medication 10/22/2017 Overview (09/07/2018): Images from the original note were not included. Assessment & Plan (06/15/2020 10:49 PM CDT): Lab Results Component Value Date WBC 5.6 04/20/2020 HGB 13.3 04/20/2020 HCT 41.0 04/20/2020 MCV 96.5 (H) 04/20/2020 LABPLAT 246 04/20/2020 Chemistry Lab Results Component Value Date SODIUM 143 04/20/2020 POTASSIUM 3.4 04/20/2020 CHLORIDE 105 04/20/2020 CO2 25 04/20/2020 ANIONGAP 13 04/20/2020 BUNSER 14 04/20/2020 CREATININE 0.66 04/20/2020 GLUCOSE 109 04/20/2020 URICACID 2.7 01/09/2017 CALCIUM 9.1 04/20/2020 BILITOT 0.3 04/20/2020 PROTEIN 6.3 01/09/2017 ALBUMIN 4.5 04/20/2020 GFRNAA 88 04/20/2020 ALKPHOS 70 04/20/2020 AST 25 04/20/2020 ALT 31 04/20/2020 Lab Results Component Value Date SEDRATE 9 04/20/2020 Lab Results Component Value Date CRP 1.8 04/20/2020 Lab Results Component Value Date CARSON 1:80 (H) 01/09/2017 RF 9 01/09/2017 SEDRATE 9 04/20/2020 Patient on medications requiring periodic lab monitoring for drug safety. Update lab as per orders written. Assessment & Plan (04/18/2020 1:14 PM CDT): Images from the original note were not included. Lab Results Component Value Date WBC 4.6 12/29/2019 HGB 12.8 12/29/2019 HCT 40.2 12/29/2019 MCV 99.3 (H) 12/29/2019 LABPLAT 286 12/29/2019 Chemistry Lab Results Component Value Date SODIUM 146 (H) 12/29/2019 POTASSIUM 3.8 12/29/2019 CHLORIDE 106 12/29/2019 CO2 27 12/29/2019 ANIONGAP 13 12/29/2019 BUNSER 14 12/29/2019 CREATININE 0.69 12/29/2019 GLUCOSE 96 12/29/2019 URICACID 2.7 01/09/2017 CALCIUM 9.1 12/29/2019 BILITOT 0.4 12/29/2019 PROTEIN 6.3 01/09/2017 ALBUMIN 4.5 12/29/2019 GFRNAA 87 12/29/2019 ALKPHOS 62 12/29/2019 AST 23 12/29/2019 ALT 28 12/29/2019 Lab Results Component Value Date SEDRATE 11 12/29/2019 Lab Results Component Value Date CRP 2.5 12/29/2019 Patient on medications requiring periodic lab monitoring for drug safety. Update lab as per orders written. Assessment & Plan (12/29/2019 10:26 AM CLINICAL ADVISOR): Patient on medications requiring periodic lab monitoring for drug safety. Update lab as per orders written. Assessment & Plan (09/21/2019 10:37 AM CDT): Patient on immunosuppressive medications requiring periodic lab monitoring for drug safety. Update lab as per orders written. Assessment & Plan (06/14/2019 10:12 AM CDT): Patient on immunosuppressive medications requiring periodic lab monitoring for drug safety. Update lab as per orders written. Assessment & Plan (03/09/2019 12:04 PM CDT): Patient on immunosuppressive medications requiring periodic lab monitoring for drug safety. Update lab as per orders written. Assessment & Plan (12/09/2018 11:27 AM CLINICAL ADVISOR): Patient on immunosuppressive medications requiring periodic lab monitoring for drug safety. Update lab as per orders written. Assessment & Plan (09/07/2018 12:31 PM CDT): Patient on immunosuppressive medications requiring periodic lab monitoring for drug safety. Update lab as per orders written. Assessment & Plan (06/04/2018 10:29 AM CDT): Patient on immunosuppressive medications requiring periodic lab monitoring for drug safety. Update lab as per orders written. Assessment & Plan (02/25/2018 1:21 PM CDT): Patient on immunosuppressive medications requiring periodic lab monitoring for drug safety. Update lab as per orders written. Assessment & Plan (01/20/2018 11:30 AM CLINICAL ADVISOR): Patient on immunosuppressive medications requiring periodic lab monitoring for drug safety. Update lab as per orders written. Assessment & Plan (10/22/2017 11:13 AM CLINICAL ADVISOR): Patient on immunosuppressive medications requiring periodic lab monitoring for drug safety. Update lab as per orders written. She has had seasonal influenza immunization. She recalls only one pneumococcal pneumonia immunization.in the past. She will check with Dr. Diop to determine if this was PPV-23 or PCV-13 and we can arrange appropriate update. Seborrhea 07/18/2017 History of partial thyroidectomy 01/09/2017 Overview (09/07/2018): Images from the original note were not included. Assessment & Plan (09/07/2018 12:21 PM CDT): Complaints of chronic fatigue noted. Lab Results Component Value Date TSH 1.36 01/09/[address] Diop requested. Patient currently not on thyroid supplements. Family history of type 2 diabetes mellitus 01/09 Overview (02/27/2017): Family history of type 2 diabetes Essential hypertension 01/09/2017 Overview (02/27/2017): Essential hypertension Assessment & Plan (06/15/2020 10:54 PM CDT): Wt Readings from Last 3 Encounters: 04/18/20 104.3 kg (230 lb) 01/31/20 106 kg (233 lb 9.6 oz) 12/29/19 105.7 kg (233 lb) Temp Readings from Last 3 Encounters: 06/07/20 36.7 C (98 F) 05/03/20 36.4 C (97.5 F) 04/18/20 37 C (98.6 F) (Oral) BP Readings from Last 3 Encounters: 06/07/20 138/63 05/03/20 (!) 172/80 04/18/20 130/75 Pulse Readings from Last 3 Encounters: 06/07/20 61 05/03/20 59 04/18/20 60 Denies headache, dizziness, chest pain, palpitations, shortness of breath, edema, orthopnea, PND. Assessment & Plan (04/18/2020 1:14 PM CDT): Wt Readings from Last 3 Encounters: 04/18/20 104.3 kg (230 lb) 01/31/20 106 kg (233 lb 9.6 oz) 12/29/19 105.7 kg (233 lb) Temp Readings from Last 3 Encounters: 04/18/20 37 C (98.6 F) (Oral) 01/31/20 36.6 C (97.9 F) 12/29/19 36.5 C (97.7 F) (Oral) BP Readings from Last 3 Encounters: 04/18/20 130/75 01/31/20 159/95 12/29/19 124/72 Pulse Readings from Last 3 Encounters: 04/18/20 60 01/31/20 55 12/29/19 68 Denies headache, dizziness, chest pain, palpitations, shortness of breath, edema, orthopnea, PND. Assessment & Plan (12/29/2019 10:26 AM CLINICAL ADVISOR): Vitals BP 124/72 (BP Location: Right arm, Patient Position: Sitting) Pulse 68 Temp 36.5 C (97.7 F) (Oral) Resp 18 Ht 165.1 cm (5' 5 ) Wt 105.7 kg (233 lb) BMI 38.77 kg/m Denies headache, dizziness, chest pain, palpitations, shortness of breath, edema, orthopnea, PND. Assessment & Plan (09/21/2019 10:36 AM CDT): Vitals BP 128/80 (BP Location: Right arm, Patient Position: Sitting) Pulse 56 Temp 36.8 C (98.2 F) (Oral) Resp 18 Ht 165.1 cm (5' 5 ) Wt 103.9 kg (229 lb) BMI 38.11 kg/m Denies headache, dizziness, chest pain, palpitations, shortness of breath, edema, orthopnea, PND. Assessment & Plan (06/14/2019 10:12 AM CDT): Vitals BP 132/78 (BP Location: Right arm, Patient Position: Sitting) Pulse 60 Temp 36.9 C (98.4 F) (Oral) Resp 18 Ht 165.1 cm (5' 5 ) Wt 103.1 kg (227 lb 6.4 oz) BMI 37.84 kg/m Denies headache, dizziness, chest pain, palpitations, shortness of breath, edema, orthopnea, PND. Assessment & Plan (03/09/2019 12:04 PM CDT): Vitals BP 116/82 (BP Location: Right arm, Patient Position: Sitting) Pulse 60 Temp 37.1 C (98.8 F) (Oral) Resp 20 Ht 165.1 cm (5' 5 ) Wt 103.9 kg (229 lb) BMI 38.11 kg/m Denies headache, dizziness, chest pain, palpitations, shortness of breath, edema, orthopnea, PND. Assessment & Plan (06/04/2018 10:28 AM CDT): Vitals: 06/04/18 0945 BP: 130/72 Pulse: 64 Resp: 18 Temp: 36.9 C (98.4 F) Clinically stable on present med regimen. Continue same. Denies headache, dizziness, chest pain, palpitations, shortness of breath, edema, orthopnea, PND. Rhe[facility]oid [facility] sites with negative rheumatoid factor 10/05/2013 Overview (06/04/2018): Images from the original note were not included. Assessment & Plan (03/10/2024 1:25 PM CDT): Stable on MTX 15 mg weekly and folic acid 1 mg daily. Labs are up to date. Continue same. Follow up with Dr. Vivar in 3 months and prn. Assessment & Plan (06/15/2020 10:48 PM CDT): RA with significant improvement after initiating Humira. She has taken first 3 injections. Tolerates same without injection site reactions. She remains on low dose prednisone (5 mg daily) as well as methotrexate 8 x 2.5 mg tablets = 20 mg weekly. She will continue same. Update lab as per orders. Patient is aware of my planned mcc in mid-July and our intention to transition her care to one of the other Rheumatologists at [facility]. Assessment & Plan (04/18/2020 1:17 PM CDT): RA with continued mild flare L>R hand. She was to be authorized for Humira but never received a response frm her insurance. Will investigate same. In the meantime I recommend starting prednisone 5 mg daily in an effort to derive some immediate relief of her joint pain, swelling and stiffness. Patient denies fever, rash, aphthous ulcers, dry eyes, dry mouth, hair loss, dysphagia, pleurisy, shortness of breath, nausea, vomiting, diarrhea, dysuria, hematuria, seizures, syncope. She asks about Rinvoq and Olumiant as alternatives (recall Xeljanz seemed to help some but she developed allergic skin rash). Assessment & Plan (12/29/2019 10:25 AM CLINICAL ADVISOR): Scheduled follow up rheumatoid arthritis. No med side effect reported. Rapid3 13.8, skewed by lumbar DDD and associated radiculopathy. She remains on methotrexate, folic acid and occasional prednisone. She needs more aggressive DMARD therapy (biologic response modifier). For some reason she was confronted with unaffordable out of pocket expenses with IV infliximab. She has done some investigation on her own and believes she would be better covered with Humira (she was told 50$ monthly). Will initiate prior authorization for same. Update lab as per orders. Assessment & Plan (09/21/2019 10:35 AM CDT): Seronegative RA (weakly positive CARSON) with continued synovitis hands/wrists; Rapid3 12.0. She experienced severe leg cramps with last (~05/2019) infliximab infusion (05/2019) administered At [facility] and has elected not to pursue same. Discussed the importance of controlling synovitis to prevent further erosive joint damage ([id number] paradigm). Suggest consider instead either golimumab (Simponi) or abtacept (Orencia) intravenous options. She has had difficulty with getting charges submiited to her supplemental insurance after Medicare portion paid and wishes to have financial issues reconciled before starting further infusion therapies. Will update lab as per orders. Assessment & Plan (06/14/2019 10:11 AM CDT): Patient complains of increased pain hands/wrists, knees, ankles and feet. She was doing heavy lifting around house a month ago after which she noticed some increased symptoms though worse in last 2 weeks. She is feeling somewhat better today after resting over the weekend. Rapid3 12.3. As a result of communication error she never was rescheduled for infliximab (Remicade) and has not had an infusion since 02/19/2019. She wishes to resume same but prefers infusions to be at [facility]. Her PCP has indicated her will provide orders and supervision for infusions locally. We will authorize same and send orders accordingly. We will increase dose to 5 mg /kg. Update lab as per orders. A steroid pulse is an option if symptom flare relapses while awaiting Remicade. Assessment & Plan (03/09/2019 12:03 PM CDT): RA clinically stable on current med regimen. Rapid 3 12.5 (escalated by R knee and neck pain; see below). No med side effects reported (though she did have ?viral syndrome following last infliximab infusion). Her current infliximab dose remains only 3 mg/kg and dose increase could be considered if inflammatory symptoms increase. She asks about transitioning her infusions to [facility] which we could arrange but would require new authorization. She will defer for now. Continue current methotrexate 20 mg weekly; folic acid 1 mg daily. Update lab as per orders. Assessment & Plan (12/09/2018 11:22 AM CLINICAL ADVISOR): Scheduled follow up rheumatoid arthritis. Generally feels well though still complains of 90 min AM stiffness. No med side effect reported. Rapid3 8.7. Update lab as per orders. Increase methotrexate to 8 x 2.5 mg tab (20 mg) once each week. Continue infliximab schedule. Assessment & Plan (09/07/2018 12:31 PM CDT): RA clinically stable on current methotrexate and Remicade regimen. Rapid3 10.8. No medication side effects reported. Continue same. Update lab as per orders. Assessment & Plan (06/04/2018 10:36 AM CDT): Clinically stable on present med regimen. Continue same. Assessment & Plan (02/25/2018 1:20 PM CDT): Continued pain, stiffness. Patient agreeable to initiating Remicade as previously discussed. QuantiFERON TB and Hepatitis Panel negative. Will prior authorize same. Continue current meds otherwise unchanged. Assessment & Plan (01/20/2018 11:27 AM CLINICAL ADVISOR): Seronegative RA previously responding to Xeljanz, though discontinued same when developed hypersensitivity skin rash. She notes her synovitis and stiffness returning. Will resume methotrexate 15 mg weekly along with folic acid daily (omit on day of methotrexate) and consider addition of infliximab ( Remicade). She will review information: www.remicade.Conecte Link TNF INHIBITOR PATIENT INFORMATION: TNF inhibitors are a type of drug used worldwide to treat inflammatory conditions such as rheumatoid arthritis (RA), psoriatic arthritis, juvenile arthritis, inflammatory bowel disease (Crohn s and ulcerative colitis), ankylosing spondylitis, and psoriasis. They reduce inflammation and stop disease progression by targeting an inflammation-causing substance called Tumor Necrosis Factor (TNF). In healthy individuals, excess TNF in the blood is blocked naturally, but in those who have rheumatic conditions, higher levels of TNF in the blood lead to more inflammation and persistent symptoms. They can alter a disease s effect on the body by controlling inflammation in the joints, gastrointestinal tract, and skin. There are different TNF inhibitors that have been approved by the U.S. Food and Drug Administration for the treatment of rheumatic diseases. To decrease side effects and costs, most patients with mild or moderate disease may be treated with methotrexate before adding or switching to a TNF inhibitor. These agents can be used by themselves or in combination with other medications such as prednisone, methotrexate, hydroxychloroquine, leflunomide, or sulfasalazine. HOW TO TAKE IT: TNF inhibitors may be given by injection under the skin or by infusion into the vein. There are pamphlets and videos that can teach you how to give yourself an injection under the skin. Physicians, nurses, and pharmacists can also teach you how to give the injection. The medicine can be injected into the thigh or abdomen. The site of injection should be rotated so the same site is not used multiple times. Infliximab and golimumab infusions are administered at a doctor s office or an infusion center. These treatments take up to four hours. The time that it takes for the medication to have an effect may vary by patient. Most patients have reported a change in their symptoms after two or three doses, but it usually takes three months to see the full benefit. SIDE EFFECTS: The most common side effect seen with the injectable drugs are skin reactions, commonly referred to as i njection site reactions. The patients usually complain of a localized rash with burning or itching. These reactions can last up to a week. Infliximab has been associated with a severe allergic reaction with swelling of the lips, difficulty breathing and low blood pressure. Your doctor will usually order a pre-medication to decrease the chances of an infusion reaction. The most significant side effect is an increased risk for all types of infections, including tuberculosis (TB) and fungal infections. Some of these infections may be severe. Patients should be tested for TB before starting therapy, because a hepatitis B infection can worsen during treatment. The usual way of testing is with a skin test, but a blood test is also available. Long-term use of TNF inhibitors may increase the risk of cancers such as lymphoma and skin cancer. There are rare neurologic complications as well.. People who have a history of multiple sclerosis should not use them. People with significant heart failure should not use a TNF inhibitor, because their heart disease could worsen. TELL YOUR DOCTOR: TNF inhibitors should be stopped if the patient has high fever or is being treated with antibiotics for an infection. Once the medication is stopped, it should not be restarted until the infection goes away. Patients should talk to their doctor before getting any vaccinations while using an anti-TNF drug. Some vaccinations are safe, but live vaccines should be avoided. These medications are expensive (more than $10,000 per year), but they are covered by most health care insurance plans. Copay amounts vary widely. Ask your doctor about prescription assistance plans that can help you to get the medication at a lower villeda or free of charge. Refer to the package insert for more information. - Updated December 2016 by Lea Gifford MD, and reviewed by the [employer] [place] [employer] Committee on Communications and Marketing. This information is provided for general education only. Individuals should consult a qualified health care provider for professional medical advice, diagnosis and treatment of a medical or health condition. 2017 [place] [employer] See more at: https://[email or web address].org/I-Am-A/Patient-Caregiver/Treatments/TNF-Inhibitors# [email or web address] [email or web address] Class 2 severe obesity due t o excess calories with serious comorbidity and body mass index (BMI) of 35.0 to 35.9 in adult 10/05/2013 Overview (02/25/2018): Assessment & Plan (03/10/2024 1:26 PM CDT): Has done well/lost some weight. A body mass index (BMI) of 20-24.9 is considered healthy for most individuals. A combination of diet and exercise can help to attain/maintain a healthy BMI is recommended to improve vascular risk factors and diabetes risk. A 5-10% weight loss can have significant cardiovascular benefits. Also, each pound of weight lost unloads 3-4 pounds per square inch pressure from weight bearing joints. Significantly reducing or avoiding overly processed convenience foods, sugary drinks and alcohol is an important way to improve nutrition and reduce the intake of empty calories. Assessment & Plan (12/29/2019 10:25 AM CLINICAL ADVISOR): An optimal BMI (body mass index) is between 20 and 25. Encourage weight loss. Each pound of weight lost unloads 3-4 pounds per square inch pressure from weight bearing joints. Diet and exercise are the keys to weight management. Assessment & Plan (09/21/2019 10:37 AM CDT): An optimal BMI (body mass index) is between 20 and 25. Encourage weight loss. Each pound of weight lost unloads 3-4 pounds per square inch pressure from weight bearing joints. Diet and exercise are the keys to weight management. Assessment & Plan (06/14/2019 9:55 AM CDT): An optimal BMI (body mass index) is between 20 and 25. Encourage weight loss. Each pound of weight lost unloads 3-4 pounds per square inch pressure from weight bearing joints. Diet and exercise are the keys to weight management. Assessment & Plan (03/09/2019 12:04 PM CDT): An optimal BMI (body mass index) is between 20 and 25. Encourage weight loss. Each pound of weight lost unloads 3-4 pounds per square inch pressure from weight bearing joints. Diet and exercise are the keys to weight management. Assessment & Plan (12/09/2018 11:29 AM CLINICAL ADVISOR): An optimal BMI (body mass index) is between 20 and 25. Encourage weight loss. Each pound of weight lost unloads 3-4 pounds per square inch pressure from weight bearing joints. Diet and exercise are the keys to weight management. Assessment & Plan (09/07/2018 12:22 PM CDT): An optimal BMI (body mass index) is between 20 and 25. Encourage weight loss. Each pound of weight lost unloads 3-4 pounds per square inch pressure from weight bearing joints. Diet and exercise are the keys to weight management. Assessment & Plan (06/04/2018 10:28 AM CDT): An optimal BMI (body mass index) is between 20 and 25. Encourage weight loss. Each pound of weight lost unloads 3-4 pounds per square inch pressure from weight bearing joints. Diet and exercise are the keys to weight management. Assessment & Plan (02/25/2018 1:21 PM CDT): An optimal BMI (body mass index) is between 20 and 25. Encourage weight loss. Each pound of weight lost unloads 3-4 pounds per square inch pressure from weight bearing joints. Diet and exercise are the keys to weight management. Assessment & Plan (01/20/2018 11:25 AM CLINICAL ADVISOR): An optimal BMI (body mass index) is between 20 and 25. Encourage weight loss. Each pound of weight lost unloads 3-4 pounds per square inch pressure from weight bearing joints. Diet and exercise are the keys to weight management. Assessment & Plan (10/22/2017 11:14 AM CLINICAL ADVISOR): Continue weight loss efforts. An optimal BMI (body mass index) is between 20 and 25. Encourage weight loss. Each pound of weight lost unloads 3-4 pounds per square inch pressure from weight bearing joints. Diet and exercise are the keys to weight management. Assessment & Plan (07/18/2017 12:06 PM CDT): An optimal body mass index is between 20 and 25. Encourage weight loss. Each pound of weight lost unloads 3-4 pounds per square inch pressure from weight bearing joints. Diet and exercise are the keys to weight management. \ Resolved Problems Problem Noted Date Diagnosed Date Resolved Date Parotid mass 07/18/2017 09/07/2018 Encounters Date Type Department Care Team Description 11/10/2024 Telephone [facility] Rhe[facility]ology at [facility] [address] [place] [id number] Ly Vivar MD 11/09/2024 12:29 PM CLINICAL ADVISOR - 11/09/2024 11:59 PM CLINICAL ADVISOR Hospital Encounter [facility] - Imaging [address] [place] [address] Rheumatoid arthritis of multiple sites with negative rheumatoid factor (HCC); Primary osteoarthritis involving multiple joints; Encounter for medication monitoring; Encounter for long-term (current) use of medications; Age-related osteoporosis without current pathological fracture; Chronic pain of left knee; Chronic pain of right knee Discharge Disposition: Discharge to home or self care 11/09/2024 11:30 AM CLINICAL ADVISOR Office Visit [facility] at [facility] [address] [place] [address] Ly Vivar MD Rheumatoid arthritis of multiple sites with negative rheumatoid factor (HCC) (Primary Dx); Primary osteoarthritis involving multiple joints; Encounter for medication monitoring; Encounter for long-term (current) use of medications; Age-related osteoporosis without current pathological fracture; Chronic pain of left knee; Chronic pain of right knee 11/04/2024 Orders Only [facility] Health Information Management [address] [place] [id number] Scanning, Provider from Last 3 Months Immunizations Immunization Administration Dates Next Due Influenza, Quadrivalent, Hig h Dose, Preservative Free, Intrr 09/04/2022 Influenza, Quadrivalent, Spl it, Intramuscular 09/04/2016,10/21/2014 Influenza, Quadrivalent, Spl it, Preservative Free, Intramuscular 08/14/2018,07/23/2017 Influenza, Trivalent, High D ose, Split, Preservative Free, Intramuscular 09/21/2019,08/24/2016 Influenza, Unspecified 06/24/2020,08/08/2018, Pfizer SARS-CoV-2 Monovalent Vaccination (12+ Yrs) PURPLE 03/06/2022,07/16/2021,01/17/2021,12/27 Pneumococcal Conjugate PCV 13 09/04/2016, 015 Pneumococcal Polysaccharide PPV23 01/22/2018,10/2013,11/24/2011 ZOSTER Recombinant 03/07/2019,01/13/2019 Surgical History Surgery Date Site/Laterality Comments CARPAL TUNNEL RELEASE 11/24/1994 - 11/23/1995 Carpal tunnel release HYSTERECTOMY 11/24/1994 - 11/23/1995 Hysterectomy THYROIDECTOMY 11/24/1980 - 11/23/1981 Thyroidectomy CHOLECYSTECTOMY 11/24/1980 - 11/23/1981 Cholecystectomy TUBAL LIGATION tubal Ligation CATARACT EXTRACTION 04/06/2020 Right BACK SURGERY 01/24/2021 EYE SURGERY 09/20/2021 Right laser eye surgery APPENDECTOMY 1971 CATARACT EXTRACTION 2019 Medical History Medical History Date Comments Hx Other Medical sinus problems Hx Other Medical 1970 tubula ligation Hx Other Medical 1995 bunion Asthma Asthma Hypertension Hypertension Thyroid disease Arthritis Osteoporosis April, Cataract January, Family History Medical History Relation Name Comments Diabetes type II Brother Diabetes me llitus type 2; Diabetes Father Heart disease Father Hypertension Father Cancer Mother Althea Nolan Lung cancer Mother Althea Nolan Cancer, lung; Cause of : Cancer, lung Psoriasis Mother Althea Nolan Psoriasis; Lung cancer Other 1 Family history of Cancer, lung; Diabetes Other 2 Family history of Diabetes mellitus; Rheum arthritis Other 3 Family histo ry of Rheumatoid arthritis; Heart disease Other 4 Family history of heart disease; Asthma Sister 1 #2 Asthma; Hypertension Sister 1 #2 Hypertension; Cancer Sister 2 Tarsha Arrington Diabetes type II Sister 2 Tarsha Arrington Diabetes me llitus type 2; Arthritis Sister 3 Arleen Lanier Cervical cancer Sister 3 Arleen Yannick Cancer, cer vical; Heart disease Sister 3 Arleen Lanier Psoriasis Sister 4 Psoriasis; Relation Name Status Comments Brother Father Mother Althea Nolan (Age 74) Other 1 Other 2 Other 3 Other 4 Sister 1 #2 Sister 2 Tarsha Arrington Sister 3 Arleen Lanier Sister 4 Social History Tobacco Use Types Packs/Day Years Used Date Smoking Tobacco: Never Smokeless Tobacco: Never Tobacco Cessation:Counseling Given: Not Answered Alcohol Use Standard Drinks/Week Comments No 0 (1 standard drink = 0.6 oz pur e alcohol) OASIS D0700: Social Isolation Answer Da te Recorded Frequency of experiencing loneliness or isolatio n Never 11/12/2023 OASIS A1250: Transportation Answer Date Recorded Lack of Transportation (Medical) No 11/12/2023 Lack of Transportation (Non-Medical) No 11/12/2023 Patient Unable or Declines to Respond No 11/12/2023 OASIS B1300: Health Literacy Answer Arben e Recorded Frequency of needing help to read materials from doctor or pharmacy Never 11/12/2023 AUDIT-C Answer Date Recorded Q1: How often do you have a drink containing alc ohol? Monthly or less 01/24/2021 Average Number of Drinks Not on file 021 Frequency of Binge Drinking Not on file 01/2021 PHQ-2 Answer Date Recorded PHQ-2 Score 0 07/16/2019 Personal Safety Answer Date Recorded Have you ever been in or are you currently in a harmful physical or emotional relationship or is someone making you feel afraid or unsafe? Denies 10/07/2023 Comments No Sex and Gender Information Value Date Recorded Sex Assigned at Not on file Legal Sex Female 7:26 PM CLINICAL ADVISOR Gender Identity Not on file Sexual Orientation Not on file Obstetrics History Last Filed Vital Signs Vital Sign Reading Time Taken Comments Blood Pressure 126/74 11/09/2024 11:25 AM CLINICAL ADVISOR Pulse 56 11/09/2024 11:25 AM CLINICAL ADVISOR Temperature 36.7 C (98 F) 08/25/2024 11:14 AM CDT Respiratory Rate 16 08/25/2024 11:14 AM CDT Oxygen Saturation 96% 11/09/2024 11:25 AM CLINICAL ADVISOR Inhaled Oxygen Concentration - - Weight 92.3 kg (203 lb 8 oz) 11/09/2024 11:25 AM CLINICAL ADVISOR Height 162.5 cm (5' 3.98 ) 11/09/2024 11:[address] Body Mass Index 34.95 11/09/2024 11:25 AM CLINICAL ADVISOR Plan of Treatment Health Maintenance Due Date Last Done Comments Hepatitis C Screening 1945 DTaP/Tdap/Td Vaccine (1 - Tdap) 1958 Hepatitis B Screening 1965 Well Visit 65+ 2012 Depression Screening 12/09/2019 12/09/2018 Fall Risk Assessment 01/25/2022 01/25/2021, 06/14/2019, 12/09/2018 Osteoporosis Screening-Bone Density Scan 04/17/2024 04/17/2022, 11/18/2018 Covid-19 Vaccine (5 - 2023-2 5 season) 2024 03/06/2022, 07/16/2021, 01/17/2021, Additional history exists Influenza Vaccine (#1) 2024 2, 06/24/2020, 09/21/2019, Additional history exists Pneumococcal vaccine 65+ Completed 018, 09/04/2016, 11/24/2014, Additional history exists Zoster Vaccine Completed 03/07/2019, 01/13/2019 Breast Cancer Screening-Mammogram Discontinued 019 Goals Goal Patient Goal Type Associated Problems Recent Progress Patient-Stated? Author CCM Chronic Pain Care Plan Chronic Care Management Jesús Ruelas, RN Note: Problem: Chronic Pain Goals: 1. Minimize further functional decline 2. Maximize quality of life 3. Control pain Strategies: - Activity/exercise program recommendation - Conservative stepwise pain medicine strategy with multi-disciplinary approach - Recommend healthy lifestyle strategies and compensatory methods as needed Procedures Procedure Name Priority Date/Time Associated Diagnosis Comments XR KNEE RIGHT 1 OR 2 VIEWS Routine 11/09/2024 12:58 PM CLINICAL ADVISOR Rheumatoid arthritis of multiple sites with negative rheumatoid factor (HCC) Primary osteoarthritis involving multiple joints Encounter for medication monitoring Encounter for long-term (current) use of medications Age-related osteoporosis without current pathological fracture Chronic pain of left knee Chronic pain of right knee XR KNEE LEFT 1 OR 2 VIEWS Routine 11/09/2024 12:58 PM CLINICAL ADVISOR Rheumatoid arthritis of multiple sites with negative rheumatoid factor (HCC) Primary osteoarthritis involving multiple joints Encounter for medication monitoring Encounter for long-term (current) use of medications Age-related osteoporosis without current pathological fracture Chronic pain of left knee Chronic pain of right knee XR KNEE BILATERAL AP STANDING Routine 11/09/2024 12:58 PM CLINICAL ADVISOR Rheumatoid arthritis of multiple sites with negative rheumatoid factor (HCC) Primary osteoarthritis involving multiple joints Encounter for medication monitoring Encounter for long-term (current) use of medications Age-related osteoporosis without current pathological fracture Chronic pain of left knee Chronic pain of right knee SCAN - LABS 11/04/2024 DEXA AXIAL SKELETON BONE DENSITY 1 OR MORE SITES Schedule Routine, Read Routine (OP Routine) 04/17/2022 10:39 AM CDT Rheumatoid arthritis of multiple sites with negative rheumatoid factor (HCC) Encounter for medication monitoring Encounter for long-term (current) use of medications Primary generalized (osteo)arthritis Right wrist fracture Other specified disorders of bone density and structure, multiple sites HM MAMMOGRAPHY Routine 07/13/2019 from Last 3 Months or Most Recently Relevant to Health Maintenance Results * XR Knee Bilateral Ap Standing (11/09/2024 12:58 PM CLINICAL ADVISOR) Anatomical Region Laterality Modality Lower Extremities, Knee Bilateral Computed Radiography 11/09/2024 1:29 PM CLINICAL ADVISOR Impressions 11/09/2024 1:29 PM CLINICAL ADVISOR There is bilateral tricompartmental narrowing and degenerative change that is most pronounced along the medial compartments bilaterally and worse on the right than left. This is unchanged compared with prior radiographs dated 11/03/2023. There is no knee fracture or acute osseous abnormality. There is a small fabella bilaterally. There are no knee joint effusions. There is a small enthesophyte along the superior left patella. Electronically signed by: Agusto Ortega M.D. Narrative 11/09/2024 1:29 PM CLINICAL ADVISOR XR KNEE BILATERAL AP STANDING, XR KNEE LEFT 1 OR 2 VIEWS, XR KNEE RIGHT 1 OR 2 VIEWS: 11/09/2024 4:45 PM CLINICAL INDICATION: Bilateral knee pain. Osteoarthritis. COMPARISON: Radiographs of the knees dated 11/03/2023. Procedure Note Agusto Ortega MD - 11/09/2024 XR KNEE BILATERAL AP STANDING, XR KNEE LEFT 1 OR 2 VIEWS, XR KNEE RIGHT 1 OR 2 VIEWS: 11/09/2024 4:45 PM CLINICAL INDICATION: Bilateral knee pain. Osteoarthritis. COMPARISON: Radiographs of the knees dated 11/03/2023. IMPRESSION: There is bilateral tricompartmental narrowing and degenerative change that is most pronounced along the medial compartments bilaterally and worse on the right than left. This is unchanged compared with prior radiographs dated 11/03/2023. There is no knee fracture or acute osseous abnormality. There is a small fabella bilaterally. There are no knee joint effusions. There is a small enthesophyte along the superior left patella. Electronically signed by: Agusto Ortega M.D. Ly Vivar MD IMG XR PROCEDURES Final Result * XR Knee Right 1 or 2 Views (11/09/2024 12:58 PM CLINICAL ADVISOR) Anatomical Region Laterality Modality Lower Extremities, Knee Right Computed Radiography 11/09/2024 1:29 PM CLINICAL ADVISOR Impressions 11/09/2024 1:29 PM CLINICAL ADVISOR There is bilateral tricompartmental narrowing and degenerative change that is most pronounced along the medial compartments bilaterally and worse on the right than left. This is unchanged compared with prior radiographs dated 11/03/2023. There is no knee fracture or acute osseous abnormality. There is a small fabella bilaterally. There are no knee joint effusions. There is a small enthesophyte along the superior left patella. Electronically signed by: Agusto Ortega M.D. Narrative 11/09/2024 1:29 PM CLINICAL ADVISOR XR KNEE BILATERAL AP STANDING, XR KNEE LEFT 1 OR 2 VIEWS, XR KNEE RIGHT 1 OR 2 VIEWS: 11/09/2024 4:45 PM CLINICAL INDICATION: Bilateral knee pain. Osteoarthritis. COMPARISON: Radiographs of the knees dated 11/03/2023. Procedure Note Agusto Ortega MD - 11/09/2024 XR KNEE BILATERAL AP STANDING, XR KNEE LEFT 1 OR 2 VIEWS, XR KNEE RIGHT 1 OR 2 VIEWS: 11/09/2024 4:45 PM CLINICAL INDICATION: Bilateral knee pain. Osteoarthritis. COMPARISON: Radiographs of the knees dated 11/03/2023. IMPRESSION: There is bilateral tricompartmental narrowing and degenerative change that is most pronounced along the medial compartments bilaterally and worse on the right than left. This is unchanged compared with prior radiographs dated 11/03/2023. There is no knee fracture or acute osseous abnormality. There is a small fabella bilaterally. There are no knee joint effusions. There is a small enthesophyte along the superior left patella. Electronically signed by: Agusto Ortega M.D. Ly Vivar MD IMG XR PROCEDURES Final Result * XR Knee Left 1 or 2 Views (11/09/2024 12:58 PM CLINICAL ADVISOR) Anatomical Region Laterality Modality Lower Extremities, Knee Left Computed Radiography 11/09/2024 1:29 PM CLINICAL ADVISOR Impressions 11/09/2024 1:29 PM CLINICAL ADVISOR There is bilateral tricompartmental narrowing and degenerative change that is most pronounced along the medial compartments bilaterally and worse on the right than left. This is unchanged compared with prior radiographs dated 11/03/2023. There is no knee fracture or acute osseous abnormality. There is a small fabella bilaterally. There are no knee joint effusions. There is a small enthesophyte along the superior left patella. Electronically signed by: Agusto Ortega M.D. Narrative 11/09/2024 1:29 PM CLINICAL ADVISOR XR KNEE BILATERAL AP STANDING, XR KNEE LEFT 1 OR 2 VIEWS, XR KNEE RIGHT 1 OR 2 VIEWS: 11/09/2024 4:45 PM CLINICAL INDICATION: Bilateral knee pain. Osteoarthritis. COMPARISON: Radiographs of the knees dated 11/03/2023. Procedure Note Agusto Ortega MD - 11/09/2024 XR KNEE BILATERAL AP STANDING, XR KNEE LEFT 1 OR 2 VIEWS, XR KNEE RIGHT 1 OR 2 VIEWS: 11/09/2024 4:45 PM CLINICAL INDICATION: Bilateral knee pain. Osteoarthritis. COMPARISON: Radiographs of the knees dated 11/03/2023. IMPRESSION: There is bilateral tricompartmental narrowing and degenerative change that is most pronounced along the medial compartments bilaterally and worse on the right than left. This is unchanged compared with prior radiographs dated 11/03/2023. There is no knee fracture or acute osseous abnormality. There is a small fabella bilaterally. There are no knee joint effusions. There is a small enthesophyte along the superior left patella. Electronically signed by: Agusto Ortega M.D. Ly Vivar MD IMG XR PROCEDURES Final Result * SCAN - LABS (11/04/2024) us Provider Scanning Edited Result - Final * Dexa Axial Skeleton Bone Density 1 or 2 Site (04/17/2022 10:39 AM CDT) Anatomical Region Laterality Modality Body N/A Digital Radiogra phy 04/17/2022 10:4 5 AM CDT Impressions 04/17/2022 10:45 AM CDT Low bone mass (osteopenia) which depending on the clinical circumstances may result in a moderate increased risk of fragility fracture. If followup is to be done, for technical reasons, it should be performed on this same machine. Electronically signed by: Wayne Chiu M.D. Narrative 04/17/2022 10:45 AM CDT EXAM: Bone mineral density examination HISTORY: Postmenopausal screening bone density. Rheumatoid arthritis. History of fractures.. DXA BMD was done at [facility] on a [facility]. Precision testing at this site has resulted in a least significant change of: Lumbar spine 0.031 g/sq cm Total Hip 0.026 g/sq cm Femoral neck 0.040 g/sq cm BMD L1-L4 is 0.884 g/sq cm corresponding to a T score of -1.5. BMD left femoral neck is 0.741 g/sq cm corresponding to a T score of -1.0. BMD total left hip is 0.844 g/sq cm corresponding to a T score of -0.8. The 10-year fracture risk for major osteoporotic fracture: 26% The 10-year fracture risk for hip fracture: 11% COMPARISON: When comparison is made with the most recent bone density examination, there has been statistically significant interval decrease in total bone mineral density of the lumbar spine and the left hip. Procedure Note Wayne Chiu MD - 04/17/2022 EXAM: Bone mineral density examination HISTORY: Postmenopausal screening bone density. Rheumatoid arthritis. History of fractures.. DXA BMD was done at [facility] on a [facility]. Precision testing at this site has resulted in a least significant change of: Lumbar spine 0.031 g/sq cm Total Hip 0.026 g/sq cm Femoral neck 0.040 g/sq cm BMD L1-L4 is 0.884 g/sq cm corresponding to a T score of -1.5. BMD left femoral neck is 0.741 g/sq cm corresponding to a T score of -1.0. BMD total left hip is 0.844 g/sq cm corresponding to a T score of -0.8. The 10-year fracture risk for major osteoporotic fracture: 26% The 10-year fracture risk for hip fracture: 11% COMPARISON: When comparison is made with the most recent bone density examination, there has been statistically significant interval decrease in total bone mineral density of the lumbar spine and the left hip. IMPRESSION: Low bone mass (osteopenia) which depending on the clinical circumstances may result in a moderate increased risk of fragility fracture. If followup is to be done, for technical reasons, it should be performed on this same machine. Electronically signed by: Wayne Chiu M.D. Ly Vivar MD IMG DXA PROCEDURES Final Result * MAMMOGRAPHY (07/13/2019) Mammogram Normal Comment:per pt report Historical Provider HEALTH MAINTENANCE Final Result from Last 3 Months or Most Recently Relevant to Health Maintenance Insurance [facility] MEDICARE [facility] Member Subscriber Plan / Payer (Ef fective 2019-Present) Name:Indio Santiago Relation to Subscriber:Self Name:Indio Santiago Payer ID:[id number] Group ID:[id number] Type:COMMERCIAL Address: [address] [place] [phone] MEDICARE [facility] [place] MEDICARE [facility] Advance Directives For more information, please contact: [phone] * Full Code (Latest Code Status on File) Date Activated Date Inactivated Comments 01/24/2021 4:55 PM 01/25/2021 6:19 PM Care Teams Virologist Relationship Specialty Start Date End Date Anival Diop MD [address] [place] [address] PCP - General 02/21/17 Alexandru Manley MD [address] [place] [address] Consulting Physician Cardiology 08/01/21
--- OUTSIDE RECORDS SUMMARY | 2025-02-01 10:46 | XMS_ITS | Clinical Summary ---
Author Organization [facility] Address [address] [place] [id number] Care Team Providers Care Grades 6 Through 8 Teacher Name Role Phone Unavailable Primary Care Provider Unavailabl e Social History Tobacco Use Types Packs/Day Years Used Date Smoking Tobacco: Never Assessed Comments Unknown Sex and Gender Information Value Date Recorded Sex Assigned at Not on file Legal Sex Female 9:25 PM CDT Gender Identity Not on file Sexual Orientation Not on file Plan of Treatment Health Maintenance Due Date Last Done Comments Hepatitis C 1963 DTaP, Tdap and Td Vaccines ( 1 - Tdap) 1966 Zoster Vaccines (1 of 2) 1997 Dexa Scan (General) 2012 Pneumococcal Vaccine: 65+ Ye ars (1 of 1 - PCV) 2012 RSV Immunization or 60+ Years (1 - 1-dose 75+ series) 2022 COVID-19 Vaccine ( - 2023-2 5 season) 2024 Influenza Adult (#1) 2024 Meningococcal B Vaccine Aged Out No l onger eligible based on patient's age to complete this topic Meningococcal Vaccine Aged Out No jami jenae eligible based on patient's age to complete this topic RSV Immunizations Under 20 Months Aged Out No longer eligible based on patient's age to complete this topic
--- OUTSIDE RECORDS SUMMARY | 2025-02-01 10:46 | XMS_ITS | Encounter Summary ---
Author Organization [facility] Address [address] [place] [address] Care Team Providers Care [employer] Operator Name Role Phone Anival Diop MD Primary Care Provider + [phone] Alexandru Manley MD Unavailable [phone] Reason for Visit * Reason Onset Date Comments precall 09/12/2020 Encounter Details Date Type Department Care Team (Late st Contact Info) Description 09/12/2020 Telephone [facility] [address] 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 See 3..21 Anesthesia Pre-procedure Evaluation note and positive COVID result from 12.3.20 in chart. Routine retesting not recommended for 120 days/expiration date below without an Infectious Disease physician consult. 11/05/2020 01/22/2021 03/04/2021 3:05 AM C DT documented as of this encounter Care Teams [employer] Operator Relationship Specialty Start Date End Date Anival Diop MD [address] [place] [address] PCP - General 02/21/17 Alexandru Manley MD [address] [place] [address] Consulting Physician Cardiology 08/01/21 documented as of this encounter
--- OUTSIDE RECORDS SUMMARY | 2025-02-01 10:46 | XMS_ITS | Referral Summary ---
Author Organization [facility] Address [address] [place] [address] Care Team Providers Care Texture Artist Name Role Phone Anival Diop MD Primary Care Provider [phone] Alexandru Manley MD Unavailable [phone] Encounters Date Type Department Care Team Description 11/10/2024 Telephone [facility] Medical Group Rheumatology at [address] [address] Ly Vivar MD 11/09/2024 12:29 PM CAR INSPECTOR - 11/09/2024 11:59 PM CAR INSPECTOR Hospital Encounter [facility] - Imaging [address] [place] [address] Rheumatoid arthritis of multiple sites with negative rheumatoid factor (HCC); Primary osteoarthritis involving multiple joints; Encounter for medication monitoring; Encounter for long-term (current) use of medications; Age-related osteoporosis without current pathological fracture; Chronic pain of left knee; Chronic pain of right knee Discharge Disposition: Discharge to home or self care 11/09/2024 11:30 AM CAR INSPECTOR Office Visit [facility] Medical Group Rheumatology at [address], [place] [address] Ly Vivar MD Rheumatoid arthritis of multiple sites with negative rheumatoid factor (HCC) (Primary Dx); Primary osteoarthritis involving multiple joints; Encounter for medication monitoring; Encounter for long-term (current) use of medications; Age-related osteoporosis without current pathological fracture; Chronic pain of left knee; Chronic pain of right knee 11/04/2024 Orders Only [facility] Health Information Management [address] [place] [address] Scanning, Provider from Last 3 Months Allergies Active Allergy Reactions Criticality Noted Date Comments Povidone-Iodine Blisters High 05/03/2020 Red Dye Rash Medium 01/31/2020 Tofacitinib Rash Medium 01/20/2018 Medications levothyroxine (SYNTHROID, LEVOTHROID) 88 mcg tablet Take 1 tablet (88 mcg total) by mouth electrolysis needle operator before breakfast Active calcitRIOL (ROCALTROL) 0.5 mcg [...] given about 2019 novel coronavirus by tel stefano 04/18/2020 Assessment & Plan (06/15/2020 10:49 PM CDT): You may review the current [employer] Covid-19 clinical guidance for Patients with Rheumatic Diseases if you copy and paste the link below into your web browser: [email or web address]-Rtii jennifer-P mahdzmi-mpnx-Sxpulsyht-Diseases.pdf Of course, methotrexate and Humira should be placed on hold in the event you were to become ill and resumed only after complete recovery. Assessment & Plan (04/18/2020 1:13 PM CDT): The full impact of autoimmune diseases and immunomodulatory medications on susceptibility and complications of coronavirus disease is not yet studied. Because we have nocturnist physician with this new virus we do not [...] that you continue to adhere to the slwo-tk-zypl orders for the time being, especially in view of your potentially immunocompromised status. Feel free to reach out to us if you have additional questions after you review this information. You may review the current [employer] Covid-19 clinical guidance for Patients with Rheumatic Diseases if you copy and paste the link below into your web browser: [email or web address]/[email or web address]-Rmpq jennifer-P ezmjnjz-hlzk-Edjcrbxer-Diseases.pdf Of course, methotrexate should be placed on [...] lumbar facet arthropathy. Electronically signed by: IDALIA NGUYEN BOBBY Result History XR Spine Lumbar Routine (Order #[id number]) on 09/21/2019 - Order Result History Report MRI Lumbar Spine WO Contrast Order: [id number] Status: Final result Visible to patient: No (Not Released) Dx: DDD (degenerative disc disease), lumbar Details Reading Physician Reading Date Result Priority Glenny Munoz MD [phone] 01/11/2020 Narrative & Impression MRI of lumbar [...] rescheduling. Assessment & Plan (12/29/2019 10:11 AM CAR INSPECTOR): XR Spine Lumbar Routine Status: Final result [...] Result History XR Spine Lumbar Routine (Order #[id number]) on 09/21/2019 - Order Result History Report [...] further. Please make sure to check any slrr-xhn-zzxlgqx products you may take as well as [...] 12/09/2018 Assessment & Plan (12/09/2018 11:23 AM CAR INSPECTOR): X-ray today. Return for steroid injection pend [...] Bone Density 1 or 2 Site Order: [id number] Status: Final result Visible to patient: No (Not Released) Dx: Postmenopausal bone loss Details Reading Physician Reading Date Result Priority Israel Rios MD 11/18/2018 Narrative EXAM: Bone mineral density [facility]. HISTORY: Postmenopausal. Loss of height. Assess for osteoporosis. DXA BMD was done at [facility] on a [employer] CI. Precision testing at this site [...] canned with bones 3 oz 325 mg [place], canned with bones 3 oz 180 mg Shrimp, canned 3 oz 125 mg Dairy Serving Size Estimated Calcium* Ricotta, part-skim 4 oz 335 mg Yogurt, plain, low-fat 6 oz 310 mg Milk, skim, low-fat, whole 8 oz 300 mg Yogurt with fruit, low-fat 6 oz 260 mg Mozzarella, part-skim 1 oz 210 mg Cheddar 1 oz 205 mg Yogurt, Faroese 6 oz 200 mg [place] Cheese 1 oz 195 mg Feta Cheese 4 oz 140 mg Cottage Cheese, 2% 4 oz 105 mg Frozen yogurt, vanilla 8 oz 105 mg Ice Cream, vanilla 8 oz 85 mg Parmesan 1 tbsp 55 mg Fortified Food Serving Size Estimated Calcium* [place] milk, rice milk or soy milk, fortified 8 oz 300 mg [place] juice and other fruit juices, fortified 8 oz 300 mg Tofu, prepared with calcium 4 oz 205 mg Waffle, frozen, fortified 2 pieces 200 mg Oatmeal, fortified 1 packet 140 mg Mauritian muffin, fortified 1 muffin 100 mg Cereal, [...] 01/20/2018 Assessment & Plan (01/20/2018 11:24 AM CAR INSPECTOR): Patient with history of injury mid-thoracic spine [...] written. Assessment & Plan (12/29/2019 10:26 AM CAR INSPECTOR): Patient on medications requiring periodic lab monitoring [...] written. Assessment & Plan (12/09/2018 11:27 AM CAR INSPECTOR): Patient on immunosuppressive medications requiring periodic lab [...] written. Assessment & Plan (01/20/2018 11:30 AM CAR INSPECTOR): Patient on immunosuppressive medications requiring periodic lab monitoring for drug safety. Update lab as per orders written. Assessment & Plan (10/22/2017 11:13 AM CAR INSPECTOR): Patient on immunosuppressive medications requiring periodic lab [...] PND. Assessment & Plan (12/29/2019 10:26 AM CAR INSPECTOR): Vitals BP 124/72 (BP Location: Right arm, [...] breath, edema, orthopnea, PND. Rheumatoid arthritis of [facility] sites with negative rheumatoid factor 10/05/2013 Overview [...] orders. Patient is aware of my planned detention in mid-July and our intention to transition her care to one of the other Rheumatologists at [facility]. Assessment & Plan (04/18/2020 1:17 PM CDT): [...] rash). Assessment & Plan (12/29/2019 10:25 AM CAR INSPECTOR): Scheduled follow up rheumatoid arthritis. No med [...] last (~05/2019) infliximab infusion (05/2019) administered At [facility] and has elected not to pursue same. Discussed the importance of controlling synovitis to prevent further erosive joint damage (wazmb-js-xpckyrelu paradigm). Suggest consider instead either golimumab (Simponi) [...] same but prefers infusions to be at [facility]. Her PCP has indicated her will provide [...] She asks about transitioning her infusions to [facility] which we could arrange but would require new authorization. She will defer for now. Continue current methotrexate 20 mg weekly; folic acid 1 mg daily. Update lab as per orders. Assessment & Plan (12/09/2018 11:22 AM CAR INSPECTOR): Scheduled follow up rheumatoid arthritis. Generally feels [...] unchanged. Assessment & Plan (01/20/2018 11:27 AM CAR INSPECTOR): Seronegative RA previously responding to Xeljanz, though discontinued same when developed hypersensitivity skin rash. She notes her synovitis and stiffness returning. Will resume methotrexate 15 mg weekly along with folic acid daily (omit on day of methotrexate) and consider addition of infliximab ( Remicade). She will review information: [email or web address].[email or web address] TNF INHIBITOR PATIENT INFORMATION: TNF inhibitors are [...] Lea Gifford MD, and reviewed by the [employer] Committee on Communications and Marketing. This information is provided for general education only. Individuals should consult a qualified health care provider for professional medical advice, diagnosis and treatment of a medical or health condition. 2017 [employer] See more at: [email or web address]/I-Am-A/Patient-Caregiver/Treatments/TNF-Inhibitors# [...] calories. Assessment & Plan (12/29/2019 10:25 AM CAR INSPECTOR): An optimal BMI (body mass index) is [...] management. Assessment & Plan (12/09/2018 11:29 AM CAR INSPECTOR): An optimal BMI (body mass index) is [...] management. Assessment & Plan (01/20/2018 11:25 AM CAR INSPECTOR): An optimal BMI (body mass index) is between 20 and 25. Encourage weight loss. Each pound of weight lost unloads 3-4 pounds per square inch pressure from weight bearing joints. Diet and exercise are the keys to weight management. Assessment & Plan (10/22/2017 11:14 AM CAR INSPECTOR): Continue weight loss efforts. An optimal BMI [...] Date Resolved Date Parotid mass 07/18/2017 09/07/2018 Immunizations Immunization Administration Dates Next Due Influenza, Quadrivalent, Hig h Dose, Preservative Free, Intrr 09/04/2022 Influenza, Quadrivalent, Spl it, Intramuscular 09/04/2016,10/21/2014 Influenza, Quadrivalent, Spl it, Preservative Free, Intramuscular 08/14/2018,07/23/2017 Influenza, Trivalent, High D ose, Split, Preservative Free, Intramuscular 09/21/2019,08/24/2016 Influenza, Unspecified 06/24/2020,08/08/2018, Pfizer SARS-CoV-2 Monovalent Vaccination (12+ Yrs) PURPLE 03/06/2022,07/16/2021,01/17/2021,12/27 Pneumococcal Conjugate PCV 13 09/04/2016, 015 Pneumococcal Polysaccharide PPV23 01/22/2018,10/2013,11/24/2011 ZOSTER Recombinant 03/07/2019,01/13/2019 Social History Tobacco Use Types Packs/Day Years [...] on file Legal Sex Female 7:26 PM CAR INSPECTOR Gender Identity Not on file Sexual Orientation Not on file Last Filed Vital Signs Vital Sign Reading Time Taken Comments Blood Pressure 126/74 11/09/2024 11:25 AM CAR INSPECTOR Pulse 56 11/09/2024 11:25 AM CAR INSPECTOR Temperature 36.7 C (98 F) 08/25/2024 11:14 AM CDT Respiratory Rate 16 08/25/2024 11:14 AM CDT Oxygen Saturation 96% 11/09/2024 11:25 AM CAR INSPECTOR Inhaled Oxygen Concentration - - Weight 92.3 kg (203 lb 8 oz) 11/09/2024 11:25 AM CAR INSPECTOR Height 162.5 cm (5' 3.98 ) 11/09/2024 11:[address] Body Mass Index 34.95 11/09/2024 11:25 AM CAR INSPECTOR Plan of Treatment Not on file Goals Goal Patient Goal Type Associated Problems [...] OR 2 VIEWS Routine 11/09/2024 12:58 PM CAR INSPECTOR Rheumatoid arthritis of multiple sites with negative rheumatoid factor (HCC) Primary osteoarthritis involving multiple joints Encounter for medication monitoring Encounter for long-term (current) use of medications Age-related osteoporosis without current pathological fracture Chronic pain of left knee Chronic pain of right knee XR KNEE LEFT 1 OR 2 VIEWS Routine 11/09/2024 12:58 PM CAR INSPECTOR Rheumatoid arthritis of multiple sites with negative rheumatoid factor (HCC) Primary osteoarthritis involving multiple joints Encounter for medication monitoring Encounter for long-term (current) use of medications Age-related osteoporosis without current pathological fracture Chronic pain of left knee Chronic pain of right knee XR KNEE BILATERAL AP STANDING Routine 11/09/2024 12:58 PM CAR INSPECTOR Rheumatoid arthritis of multiple sites with negative [...] of bone density and structure, multiple sites MAMMOGRAPHY Routine 07/13/2019 from Last 3 Months or Most Recently Relevant to Health Maintenance Results * XR Knee Bilateral Ap Standing (11/09/2024 12:58 PM CAR INSPECTOR) Anatomical Region Laterality Modality Lower Extremities, Knee Bilateral Computed Radiography 11/09/2024 1:29 PM CAR INSPECTOR Impressions 11/09/2024 1:29 PM CAR INSPECTOR There is bilateral tricompartmental narrowing and degenerative [...] Agusto Ortega M.D. Narrative 11/09/2024 1:29 PM CAR INSPECTOR XR KNEE BILATERAL AP STANDING, XR KNEE [...] 1 or 2 Views (11/09/2024 12:58 PM CAR INSPECTOR) Anatomical Region Laterality Modality Lower Extremities, Knee Right Computed Radiography 11/09/2024 1:29 PM CAR INSPECTOR Impressions 11/09/2024 1:29 PM CAR INSPECTOR There is bilateral tricompartmental narrowing and degenerative [...] Agusto Ortega M.D. Narrative 11/09/2024 1:29 PM CAR INSPECTOR XR KNEE BILATERAL AP STANDING, XR KNEE [...] 1 or 2 Views (11/09/2024 12:58 PM CAR INSPECTOR) Anatomical Region Laterality Modality Lower Extremities, Knee Left Computed Radiography 11/09/2024 1:29 PM CAR INSPECTOR Impressions 11/09/2024 1:29 PM CAR INSPECTOR There is bilateral tricompartmental narrowing and degenerative [...] Agusto Ortega M.D. Narrative 11/09/2024 1:29 PM CAR INSPECTOR XR KNEE BILATERAL AP STANDING, XR KNEE [...] of fractures.. DXA BMD was done at [facility] on a [employer] CI. Precision testing at this site has [...] of fractures.. DXA BMD was done at [facility] on a [employer] CI. Precision testing at this site has [...] by: Wayne Chiu M.D. Ly Vivar MD [facility] DXA PROCEDURES Final Result * MAMMOGRAPHY (07/13/2019) [facility] Mammogram Normal Comment:per pt report Historical Provider HEALTH MAINTENANCE Final Result from Last 3 Months or Most Recently Relevant to Health Maintenance Insurance [facility] MEDICARE [facility] MEDICARE [facility]ICARE [facility] Advance Directives For more information, please contact: [phone] * Full Code (Latest Code Status on File) Date Activated Date Inactivated Comments 01/24/2021 4:55 PM 01/25/2021 6:19 PM Care Teams Texture Artist Relationship Specialty Start Date End Date Anival Diop MD [address] [place] [address] PCP - General 02/21/17 Alexandru Manley MD [address] [place] [address] Consulting Physician Cardiology 08/01/21
--- OUTSIDE RECORDS SUMMARY | 2025-02-01 10:46 | XMS_ITS | Encounter Summary ---
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
--- OUTSIDE RECORDS SUMMARY | 2025-02-01 10:47 | XMS_ITS | Encounter Summary ---
Author Organization 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 Author CCM Chronic Pain Care Plan Chronic Care Management No Jesús Tao, RN Note: Problem: Chronic Pain Goals: 1. Minimize further functional decline 2. Maximize quality of life 3. Control pain Strategies: - Activity/exercise program recommendation - Conservative stepwise pain medicine strategy with multi-disciplinary approach - Recommend healthy lifestyle strategies and compensatory methods as needed documented as of this encounter Procedures Procedure Name Priority Date/Time Associated Diagnosis Comments SCAN - LABS 08/04/2024 documented in this encounter Results * SCAN - LABS (08/04/2024) us Provider Scanning Edited Result - Final documented in this encounter Visit Diagnoses Not on filedocumented in this encounter Care Teams Information Architect Relationship Specialty Start Date End Date Anival Diop MD [address] [place] [address] PCP - General 02/21/17 Alexandru Manley MD [address] [place] [address] Consulting Physician Cardiology 08/01/21 documented as of this encounter
--- OUTSIDE RECORDS SUMMARY | 2025-02-01 10:47 | XMS_ITS | Encounter Summary ---
Author Organization [facility] Address [address] [place] [address] Phone Care Team Providers Care Ict Programmer Name Role Phone Anival Diop MD Primary Care Provider [phone] Alexandru Manley MD Unavailable [phone] Encounter Details Date Type Department Care Team (Late st Contact Info) Description 02/25/2018 Orders Only [facility] ProviderLulu MD [address] [place] [address] Social History Tobacco Use Types Packs/Day Years Used Date Smoking Tobacco: Never Smokeless Tobacco: Never Alcohol Use Standard Drinks/Week Comments No 0 (1 standard drink = 0.6 oz pur e alcohol) Comments Unknown Sex and Gender Information Value Date Recorded Sex Assigned at Not on file 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 Historical Provider LAB BLOOD ORDERABLES Maryanne l Result documented in this encounter Visit Diagnoses Not [...] documented as of this encounter Care Teams Ict Programmer Relationship Specialty Start Date End Date Anival Diop MD [address] [place] [address] PCP - General 02/21/17 Alexandru Manley MD [address] [place] [address] Consulting Physician Cardiology 08/01/21 documented as of this encounter
--- OUTSIDE RECORDS SUMMARY | 2025-02-01 10:47 | XMS_ITS | Encounter Summary ---
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
[2025-02-01 10:49] LABS: Hemoglobin A1C 5.5 % (<5.7)
[2025-02-01 10:58] LABS: Alanine Aminotransferase 26 U/L (14-59); Alkaline Phosphatase 69 U/L (46-116); Anion Gap 7 mmol/L (4-12); Aspartate Amino Transferase 16 U/L (15-37); Bilirubin,Total 0.6 mg/dL (0.00-1.00); Blood Urea Nitrogen 12 mg/dL (7-18); Calcium 8.8 mg/dL (8.5-10.1); Carbon Dioxide 31 mmol/L (21-32); Chloride 108 mmol/L (98-108); Cholesterol 133 mg/dL (0-200); Creatine Kinase 51 U/L (26-192); Estimated Glomerular Filt Rate > 60; Free T4 Free Thyroxine 1.11 ng/dL (0.76-1.46); Glucose 105 mg/dL (70-99); HDL Direct 57 mg/dL (40-60); LDL Cholesterol Calculated 59 mg/dL (<130); Osmolality Calculated 301 mOsm/kg (285-295); Potassium 4.3 mmol/L (3.5-5.1); Sodium 146 mmol/L (136-145); Thyroid Stimulating Hormone 1.51 uIU/mL (0.36-3.74); Total Protein 7.2 g/dL (6.4-8.2); Triglycerides 86 mg/dL (0-150)
[2025-02-01 11:22] LABS: Free T3 2.82 pg/mL (2.18-3.98)
[2025-02-03 02:13] LABS: Vitamin D 25 Hydroxy 42 ng/mL (30-100)
== END 2025-02-01 09:40 | disposition home or self-care (01) ==
LOC: CHSLAB 09:43
PROVIDERS: PCP Internal Medicine; Visit Provider Internal Medicine
DX: R73.01 Impaired fasting glucose (principal); N39.0 Urinary tract infection, site not specified; E78.2 Mixed hyperlipidemia; E03.4 Atrophy of thyroid (acquired); M81.0 Age-related osteoporosis without current pathological fracture
CPT/HCPCS: 36415; 80053; 80061; 81003; 82306; 82550; 83036; 84439; 84443; 84481; 85025

== ENCOUNTER 2025-02-23 11:12 | Outpatient (RCR) | payer MEDICARE, SELFPAY ==
[2025-02-23 11:37] LABS: Hematocrit 39.2 % (35.0-42.0); Hemoglobin 12.8 g/dL (11.7-13.8); Immature Granulocyte Percent A 0.4 % (0.0-0.0); Lymphocytes Absolute Auto 1.27 K/mm3 (1.10-4.50); Mean Corpuscular HGB Conc 32.7 g/dL (32-36); Mean Corpuscular Hemoglobin 31.7 pg (27.0-31.0); Mean Corpuscular Volume 97.0 fL (78.0-102.0); Nucleated Red Blood Cells Absolute Auto 0.00 K/mm3 (0.00-0.00); Nucleated Red Blood Cells Perc 0.0 % (0-0.0); Platelet Count Result 251 K/mm3 (150-420); Red Blood Count 4.04 M/mm3 (4.20-5.40); White Blood Count 5.6 K/mm3 (4.8-10.8)
[2025-02-23 11:42] LABS: Add Urine Microscopic? YES; Appearance Urine Clear (Clear); Glucose Urine UA Negative (Negative); Leukocyte Esterase Ur Trace LEU/UL (Negative); Nitrate Urine Negative (Negative); Specific Grav Ur 1.020 (1.010-1.020)
[2025-02-23 12:14] LABS: Alanine Aminotransferase 26 U/L (14-59); Albumin Level 3.9 g/dL (3.4-5.0); Alkaline Phosphatase 69 U/L (46-116); Anion Gap 7 mmol/L (4-12); Aspartate Amino Transferase 17 U/L (15-37); Bilirubin,Total 0.5 mg/dL (0.00-1.00); Blood Urea Nitrogen 16 mg/dL (7-18); Calcium 8.9 mg/dL (8.5-10.1); Carbon Dioxide 30 mmol/L (21-32); Chloride 105 mmol/L (98-108); Estimated Glomerular Filt Rate > 60; Glucose 106 mg/dL (70-99); Osmolality Calculated 295 mOsm/kg (285-295); Potassium 4.0 mmol/L (3.5-5.1); Sodium 142 mmol/L (136-145); Total Protein 7.0 g/dL (6.4-8.2)
== END 2025-05-24 23:59 | disposition home or self-care (01) ==
LOC: CHSLAB 11:12
PROVIDERS: PCP Internal Medicine
DX: M06.09 Rheumatoid arthritis without rheumatoid factor, multiple sites (principal); M15.9 Polyosteoarthritis, unspecified; Z51.81 Encounter for therapeutic drug level monitoring; Z79.899 Other long term (current) drug therapy
CPT/HCPCS: 36415; 80053; 81001; 85025

== ENCOUNTER 2025-06-20 10:57 | Outpatient (RCR) | payer MEDICARE, SELFPAY ==
[2025-06-20 11:14] LABS: Hematocrit 38.5 % (35.0-42.0); Hemoglobin 12.8 g/dL (11.7-13.8); Immature Granulocyte Percent A 0.2 % (0.0-0.0); Lymphocytes Absolute Auto 1.48 K/mm3 (1.10-4.50); Mean Corpuscular HGB Conc 33.2 g/dL (32-36); Mean Corpuscular Hemoglobin 31.8 pg (27.0-31.0); Mean Corpuscular Volume 95.8 fL (78.0-102.0); Nucleated Red Blood Cells Absolute Auto 0.00 K/mm3 (0.00-0.00); Nucleated Red Blood Cells Perc 0.0 % (0-0.0); Platelet Count Result 236 K/mm3 (150-420); Red Blood Count 4.02 M/mm3 (4.20-5.40); White Blood Count 5.2 K/mm3 (4.8-10.8)
[2025-06-20 11:25] LABS: Add Urine Microscopic? YES; Appearance Urine Clear (Clear); Glucose Urine UA Negative (Negative); Leukocyte Esterase Ur Trace LEU/UL (Negative); Nitrate Urine Negative (Negative); Specific Grav Ur 1.015 (1.010-1.020)
[2025-06-20 12:16] LABS: Alanine Aminotransferase 32 U/L (6-35); Albumin Level 4.2 g/dL (3.5-5.1); Alkaline Phosphatase 60 U/L (38-126); Anion Gap 4 mmol/L (4-12); Aspartate Amino Transferase 44 U/L (14-36); Bilirubin,Total 0.5 mg/dL (0.2-1.3); Blood Urea Nitrogen 15 mg/dL (7-17); Calcium 8.7 mg/dL (8.4-10.2); Carbon Dioxide 30 mmol/L (22-30); Chloride 106 mmol/L (98-107); Estimated Glomerular Filt Rate > 60; Glucose 87 mg/dL (65-110); Osmolality Calculated 289 mOsm/kg (285-295); Potassium 4.3 mmol/L (3.4-5.0); Sodium 140 mmol/L (137-145); Total Protein 6.8 g/dL (6.3-8.2)
== END 2025-09-18 23:59 | disposition home or self-care (01) ==
LOC: CHSLAB 10:57
PROVIDERS: PCP Internal Medicine; Visit Provider Internal Medicine
DX: M06.09 Rheumatoid arthritis without rheumatoid factor, multiple sites (principal); M15.0 Primary generalized (osteo)arthritis; Z51.81 Encounter for therapeutic drug level monitoring; Z79.899 Other long term (current) drug therapy; M81.0 Age-related osteoporosis without current pathological fracture
CPT/HCPCS: 36415; 80053; 81001; 85025

== ENCOUNTER 2025-09-08 10:18 | Outpatient (CLI) | payer MEDICARE, SELFPAY ==
[2025-09-08 10:34] LABS: Hematocrit 38.7 % (35.0-42.0); Hemoglobin 12.6 g/dL (11.7-13.8); Immature Granulocyte Percent A 0.2 % (0.0-0.0); Lymphocytes Absolute Auto 1.39 K/mm3 (1.10-4.50); Mean Corpuscular HGB Conc 32.6 g/dL (32-36); Mean Corpuscular Hemoglobin 31.1 pg (27.0-31.0); Mean Corpuscular Volume 95.6 fL (78.0-102.0); Nucleated Red Blood Cells Absolute Auto 0.00 K/mm3 (0.00-0.00); Nucleated Red Blood Cells Perc 0.0 % (0-0.0); Platelet Count Result 234 K/mm3 (150-420); Red Blood Count 4.05 M/mm3 (4.20-5.40); White Blood Count 5.7 K/mm3 (4.8-10.8)
[2025-09-08 10:35] LABS: Add Urine Microscopic? NO; Appearance Urine Clear (Clear); Glucose Urine UA Negative (Negative); Leukocyte Esterase Ur Negative LEU/UL (Negative); Nitrate Urine Negative (Negative); Specific Grav Ur 1.020 (1.010-1.020)
[2025-09-08 11:00] LABS: Hemoglobin A1C 5.7 % (<5.7)
[2025-09-08 11:32] LABS: Alanine Aminotransferase 23 U/L (6-35); Albumin Level 4.3 g/dL (3.5-5.1); Alkaline Phosphatase 60 U/L (38-126); Anion Gap 7 mmol/L (4-12); Aspartate Amino Transferase 29 U/L (14-36); Bilirubin,Total 0.6 mg/dL (0.2-1.3); Blood Urea Nitrogen 12 mg/dL (7-17); Calcium 9.4 mg/dL (8.4-10.2); Carbon Dioxide 30 mmol/L (22-30); Chloride 106 mmol/L (98-107); Cholesterol 121 mg/dL (0-200); Creatine Kinase 56 U/L (30-135); Estimated Glomerular Filt Rate > 60; Glucose 99 mg/dL (65-110); HDL Direct 53 mg/dL; Osmolality Calculated 295 mOsm/kg (285-295); Potassium 4.7 mmol/L (3.4-5.0); Sodium 143 mmol/L (137-145); Total Protein 7.4 g/dL (6.3-8.2); Triglycerides 89 mg/dL (<150)
[2025-09-08 11:49] LABS: Free T4 Free Thyroxine 1.12 ng/dL (0.78-2.19)
--- OUTSIDE RECORDS SUMMARY | 2025-09-08 11:55 | XMS_ITS | Encounter Summary ---
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
--- OUTSIDE RECORDS SUMMARY | 2025-09-08 11:55 | XMS_ITS | Encounter Summary ---
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
--- OUTSIDE RECORDS SUMMARY | 2025-09-08 11:55 | XMS_ITS | Clinical Summary ---
Author Organization [facility] Address [address] [place] [address] Care Team Providers Care Bunch Maker Hand Name Role Phone Unavailable Primary Care Provider [...] Td Vaccines ( 1 - Tdap) 1966 Pneumococcal Vaccine: 50+ Ye ars (1 of 1 - PCV) 1997 Zoster Vaccines (1 of 2) 1997 Dexa Scan (General) 2012 RSV Immunization or 60+ Years (1 - 1-dose 75+ series) 2022 COVID-19 Vaccine ( - 2023-2 5 season) 2025 Influenza Adult (#1) 2025 Hepatitis A Vaccines Aged Out No long er eligible based on patient's age to complete this topic Meningococcal B Vaccine Aged Out No l onger eligible based on patient's age to complete this topic Meningococcal Vaccine Aged Out No jami jenae eligible based on patient's age to complete this topic RSV Immunizations Under 20 Months Aged Out No longer eligible based on patient's age to complete this topic
--- OUTSIDE RECORDS SUMMARY | 2025-09-08 11:55 | XMS_ITS | Encounter Summary ---
Author Organization [facility] Healthcare Address [address] [place] [address] Care Team Providers Care Pick Up Operator Name Role Phone Anival Diop MD Primary Care Provider [phone] Alexandru Manley MD Unavailable [phone] Encounter Details Date Type Department Care Team (Late st Contact Info) Description 08/03/2025 Results Follow-Up [facility] Medical Group Rheumatology at [facility] [address] [place] [address] Ly Vivar MD [address] [facility] [address] [place] [address] Dexa Axial Skeleton Bone Density 1 or 2 Site Social History Tobacco Use Types Packs/Day Years [...] making you feel afraid or unsafe? 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 documented in this encounter Plan of Treatment Not on [...] on filedocumented in this encounter Care Teams Pick Up Operator Relationship Specialty Start Date End Date Anival Diop MD [address] [place] [address] PCP - General 02/21/17 Alexandru Manley MD [address] [place] [address] Consulting Physician Cardiology 08/01/21 documented as of this encounter
--- OUTSIDE RECORDS SUMMARY | 2025-09-08 11:55 | XMS_ITS | Encounter Summary ---
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 in chart. Routine retesting not recommended for 120 days/expiration date below without an Infectious Disease physician consult. 11/05/2020 01/22/2021 03/04/2021 3:05 AM C DT documented as of this encounter Care Teams Firer Portable Boiler Relationship Specialty Start Date End Date Anival Diop MD [address] [place] [address] PCP - General 02/21/17 Alexandru Manley MD [address] [place] [address] Consulting Physician Cardiology 08/01/21 documented as of this encounter
--- OUTSIDE RECORDS SUMMARY | 2025-09-08 11:55 | XMS_ITS | Encounter Summary ---
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
--- OUTSIDE RECORDS SUMMARY | 2025-09-08 11:55 | XMS_ITS | Clinical Summary ---
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 technician before breakfast Active calcitRIOL (ROCALTROL) 0.5 mcg capsule Take 1 capsule (0.5 mcg total) by mouth daily 0 Active montelukast (SINGULAIR) 10 mg tablet Take 1 tablet (10 mg total) by mouth nightly Active fluticasone propionate (FLONASE) 50 mcg/actuation nasal spray Administer 1 spray into each nostril daily Active Eliquis 5 mg tabletIndication s:VTE Prophylaxis Take 1 tablet (5 mg total) by mouth 2 (two) times a day 1 Active carvediloL (COREG) 25 mg tablet Take 1 tablet (25 mg total) by mouth 2 (two) times a day with meals 180 tablet 3 1 Active NIFEdipine XL 30 mg 24 hr tablet TAKE ONE TABLET BY MOUTH DAILY 90 tablet 3 2 Active cholecalciferol (VITAMIN D-3) 2000 unit tablet Take 1 tablet (2,000 Units total) by mouth daily Active diclofenac sodium (VOLTAREN) 1 % gelIndications:O steoarthritis Apply 1 Application topically as needed (pain) 2 Active acetaminophen ER (Tylenol Arthritis Pain) 650 mg 8 hr tabletIndication s:Pain Take 1 tablet (650 mg total) by mouth 2 (two) times a day Active furosemide (LASIX) 20 mg tablet TAKE ONE TABLET BY MOUTH DAILY 90 tablet 3 4 Active rosuvastatin (CRESTOR) 10 mg tablet 4 Active alendronate (FOSAMAX) 70 mg tablet TAKE ONE TABLET BY MOUTH EVERY 7 DAYS EMPTY STOMACH. DO NOT LIE DOWN OR EAT FOR 1/2 HOUR AFTER TAKING 12 tablet 2 5 Active Premarin 0.3 mg tablet 5 Active folic acid (FOLVITE) 1 mg tablet TAKE ONE TABLET BY MOUTH DAILY 90 tablet 4 5 Active methotrexate 2.5 mg tabletIndication s:Rheumatoid Arthritis Take 6 tablets (15 mg total) by mouth every 7 days 72 tablet 5 Active Active Problems Problem Noted Date Diagnosed Date SVT (supraventricular tachycardia) 09/04/2021 Atrial flutter 07/18/2021 Advice given about 2019 novel coronavirus by tel daciaone 04/18/2020 Assessment & Plan (06/15/2020 10:49 PM CDT): You may review the current [place] [employer] Covid-19 clinical guidance for Patients with Rheumatic Diseases if you copy and paste the link below into your web browser: [email or web address] [email or web address]-P [email or web address]-Jmybttzph-Diseases.pdf Of course, methotrexate and Humira should be placed on hold in the event you were to become ill and resumed only after complete recovery. Assessment & Plan (04/18/2020 1:13 PM CDT): The full impact of autoimmune diseases and immunomodulatory medications on susceptibility and complications of coronavirus disease is not yet studied. Because we have noc analyst with this new virus we do not [...] that you continue to adhere to the bhxi-bf-nhsx orders for the time being, especially in view of your potentially immunocompromised status. Feel free to reach out to us if you have additional questions after you review this information. You may review the current [place] [employer] Covid-19 clinical guidance for Patients with Rheumatic Diseases if you copy and paste the link below into your web browser: [email or web address] [email or web address]-P fvwteog-sszd-Kaameprrk-Diseases.pdf Of course, methotrexate should be placed on [...] Result History XR Spine Lumbar Routine (Order #[id number]) on 09/21/2019 - Order Result History Report MRI Lumbar Spine WO Contrast Order: [id number] Status: Final result Visible to patient: No (Not Released) Dx: DDD (degenerative disc disease), lumbar Details Reading Physician Reading Date Result Priority Glenny Munoz MD [phone] 01/11/2020 Narrative & Impression MRI of lumbar [...] rescheduling. Assessment & Plan (12/29/2019 10:11 AM HYDROTHERAPIST): XR Spine Lumbar Routine Status: Final result [...] Result History XR Spine Lumbar Routine (Order #[id number]) on 09/21/2019 - Order Result History Report [...] further. Please make sure to check any clrk-[id number] products you may take as well as [...] 12/09/2018 Assessment & Plan (12/09/2018 11:23 AM HYDROTHERAPIST): X-ray today. Return for steroid injection pend [...] Bone Density 1 or 2 Site Order: [id number] Status: Final result Visible to patient: No (Not Released) Dx: Postmenopausal bone loss Details Reading Physician Reading Date Result Priority Israel Rios MD 11/18/2018 Narrative EXAM: Bone mineral density [facility]. HISTORY: Postmenopausal. Loss of height. Assess for osteoporosis. DXA BMD was done at [facility] on a Decision Rocket CI. Precision testing at this site has [...] on this same machine. Electronically signed by: sIrael Rios M.D. Assessment & Plan (06/15/2020 10:50 [...] canned with bones 3 oz 325 mg [place], canned with bones 3 oz 180 mg Shrimp, canned 3 oz 125 mg Dairy Serving Size Estimated Calcium* Ricotta, part-skim 4 oz 335 mg Yogurt, plain, low-fat 6 oz 310 mg Milk, skim, low-fat, whole 8 oz 300 mg Yogurt with fruit, low-fat 6 oz 260 mg Mozzarella, part-skim 1 oz 210 mg Cheddar 1 oz 205 mg Yogurt, English 6 oz 200 mg [place] Cheese 1 oz 195 mg Feta Cheese 4 oz 140 mg Cottage Cheese, 2% 4 oz 105 mg Frozen yogurt, vanilla 8 oz 105 mg Ice Cream, vanilla 8 oz 85 mg Parmesan 1 tbsp 55 mg Fortified Food Serving Size Estimated Calcium* [place] milk, rice milk or soy milk, fortified 8 oz 300 mg [place] juice and other fruit juices, fortified 8 oz 300 mg Tofu, prepared with calcium 4 oz 205 mg Waffle, frozen, fortified 2 pieces 200 mg Oatmeal, fortified 1 packet 140 mg Mexican muffin, fortified 1 muffin 100 mg Cereal, [...] 01/20/2018 Assessment & Plan (01/20/2018 11:24 AM HYDROTHERAPIST): Patient with history of injury mid-thoracic spine [...] written. Assessment & Plan (12/29/2019 10:26 AM HYDROTHERAPIST): Patient on medications requiring periodic lab monitoring [...] written. Assessment & Plan (12/09/2018 11:27 AM HYDROTHERAPIST): Patient on immunosuppressive medications requiring periodic lab [...] written. Assessment & Plan (01/20/2018 11:30 AM HYDROTHERAPIST): Patient on immunosuppressive medications requiring periodic lab monitoring for drug safety. Update lab as per orders written. Assessment & Plan (10/22/2017 11:13 AM HYDROTHERAPIST): Patient on immunosuppressive medications requiring periodic lab [...] PND. Assessment & Plan (12/29/2019 10:26 AM HYDROTHERAPIST): Vitals BP 124/72 (BP Location: Right arm, Patient Position: Sitting) Pulse 68 Temp 36.5 C (97.7 F) (Oral) Resp 18 Ht 165.1 cm (5' 5) Wt 105.7 kg (233 lb) BMI 38.77 kg/m Denies headache, dizziness, chest pain, palpitations, shortness of breath, edema, orthopnea, PND. Assessment & Plan (09/21/2019 10:36 AM CDT): Vitals BP 128/80 (BP Location: Right arm, Patient Position: Sitting) Pulse 56 Temp 36.8 C (98.2 F) (Oral) Resp 18 Ht 165.1 cm (5' 5) Wt 103.9 kg (229 lb) BMI 38.11 kg/m Denies headache, dizziness, chest pain, palpitations, shortness of breath, edema, orthopnea, PND. Assessment & Plan (06/14/2019 10:12 AM CDT): Vitals BP 132/78 (BP Location: Right arm, Patient Position: Sitting) Pulse 60 Temp 36.9 C (98.4 F) (Oral) Resp 18 Ht 165.1 cm (5' 5) Wt 103.1 kg (227 lb 6.4 oz) BMI 37.84 kg/m Denies headache, dizziness, chest pain, palpitations, shortness of breath, edema, orthopnea, PND. Assessment & Plan (03/09/2019 12:04 PM CDT): Vitals BP 116/82 (BP Location: Right arm, Patient Position: Sitting) Pulse 60 Temp 37.1 C (98.8 F) (Oral) Resp 20 Ht 165.1 cm (5' 5) Wt 103.9 kg (229 lb) BMI 38.11 [...] breath, edema, orthopnea, PND. Rheumatoid arthritis of [facility] sites with negative rheumatoid factor [...] orders. Patient is aware of my planned alf in mid-July and our intention to transition her care to one of the other Rheumatologists at [facility]. Assessment & Plan (04/18/2020 1:17 PM [...] rash). Assessment & Plan (12/29/2019 10:25 AM HYDROTHERAPIST): Scheduled follow up rheumatoid arthritis. No med [...] last (~05/2019) infliximab infusion (05/2019) administered At [facility] and has elected not to pursue same. Discussed the importance of controlling synovitis to prevent further erosive joint damage (uapka-pm-cnvvegvhf paradigm). Suggest consider instead either golimumab (Simponi) [...] same but prefers infusions to be at [facility]. Her PCP has indicated her will provide [...] She asks about transitioning her infusions to [facility] which we could arrange but would require new authorization. She will defer for now. Continue current methotrexate 20 mg weekly; folic acid 1 mg daily. Update lab as per orders. Assessment & Plan (12/09/2018 11:22 AM HYDROTHERAPIST): Scheduled follow up rheumatoid arthritis. Generally feels [...] unchanged. Assessment & Plan (01/20/2018 11:27 AM HYDROTHERAPIST): Seronegative RA previously responding to Xeljanz, though discontinued same when developed hypersensitivity skin rash. She notes her synovitis and stiffness returning. Will resume methotrexate 15 mg weekly along with folic acid daily (omit on day of methotrexate) and consider addition of infliximab ( Remicade). She will review information: [email or web address] Hand TNF INHIBITOR PATIENT INFORMATION: TNF inhibitors are [...] calories. Assessment & Plan (12/29/2019 10:25 AM HYDROTHERAPIST): An optimal BMI (body mass index) is [...] management. Assessment & Plan (12/09/2018 11:29 AM HYDROTHERAPIST): An optimal BMI (body mass index) is [...] management. Assessment & Plan (01/20/2018 11:25 AM HYDROTHERAPIST): An optimal BMI (body mass index) is between 20 and 25. Encourage weight loss. Each pound of weight lost unloads 3-4 pounds per square inch pressure from weight bearing joints. Diet and exercise are the keys to weight management. Assessment & Plan (10/22/2017 11:14 AM HYDROTHERAPIST): Continue weight loss efforts. An optimal BMI [...] Encounters Date Type Department Care Team Description 08/03/2025 11:28 AM CDT - 08/03/2025 11:59 PM CDT Hospital Encounter [facility] - Imaging [address] [place] [address] Rheumatoid arthritis of multiple sites with negative rheumatoid factor (HCC); Primary osteoarthritis involving multiple joints; Encounter for medication monitoring; Encounter for long-term (current) use of medications; Age-related osteoporosis without current pathological fracture Discharge Disposition: Discharge to home or self care 08/03/2025 Results Follow-Up [facility] at [address] [place] [address] Ly Vivar MD Dexa Axial Skeleton Bone Density 1 or 2 Site 06/21/2025 2:00 PM CDT Office Visit [facility] Medicine Interventional Radiology [address] [place] [address] Josh Martinez MD Chronic pain of right knee (Primary Dx); Chronic pain of left knee 06/21/2025 1:56 PM CDT - 06/21/2025 11:59 PM CDT Hospital Encounter [facility] - Interventional Radiology [address] [place] [address] Primary osteoarthritis of left knee Discharge Disposition: Discharge to home or self care 06/20/2025 Orders Only [facility] Health Information Management [address] [place] [address] Scanning, Provider 06/20/2025 Telephone [facility] - Interventional Radiology [address] [place] [id number] Rosa Rodriguez RN from Last 3 Months Immunizations Immunization Administration [...] eye surgery APPENDECTOMY 1971 CATARACT EXTRACTION 2019 EMBOLIZATION ORGAN ISCHEMIA OR INFARCTION 03/18/2025 N/A EMBOLIZATION ORGAN ISCHEMIA OR INFARCTION 05/03/2025 N/A Medical History Medical History Date Comments Hx [...] llitus type 2; Arthritis Sister 3 Arleen Bakarilli Cervical cancer Sister 3 Arleen Damieninelli Cancer, cer vical; Heart disease Sister 3 Arleen Bakarilli Psoriasis Sister 4 Psoriasis; Relation Name Status Comments Brother Father Mother Althea Nolan (Age 74) Other 1 Other 2 Other 3 Other 4 Sister 1 #2 Sister 2 Tarsha Arrington Sister 3 Arleen Adeni Sister 4 Social History Tobacco Use Types [...] Frequency of Binge Drinking Not on file 0301/2021 PHQ-2 Answer Date Recorded PHQ-2 Score 0 07/16/2019 Personal Safety Answer Date Recorded Have you ever been in or are you currently in a harmful physical or emotional relationship or is someone making you feel afraid or unsafe? Denies 06/21/2025 Comments No Sex and Gender Information Value Date Recorded Sex Assigned at Not on file Legal Sex Female 7:26 PM HYDROTHERAPIST Gender Identity Not on file Sexual Orientation Not on file Obstetrics History Last Filed Vital Signs Vital Sign Reading Time Taken Comments Blood Pressure 147/73 06/21/2025 2:09 PM CDT Pulse 77 06/21/2025 2:09 PM CDT Temperature 36.4 C (97.5 F) 06/21/2025 2:09 PM CDT Respiratory Rate 16 06/21/2025 2:09 PM CDT Oxygen Saturation 97% 06/21/2025 2:09 PM CDT Inhaled Oxygen Concentration - - Weight 90.7 kg (200 lb) 05/03/2025 10:05 AM CDT Height 160 cm (5' 3) 05/03/2025 10:05 AM CDT Body Mass Index 35.43 05/03/2025 10:05 AM CDT Plan of Treatment Health Maintenance Due Date Last Done Comments Hepatitis C Screening 1945 DTaP/Tdap/Td Vaccine (1 - Tdap) 1958 Hepatitis B Screening 1965 Well Visit 65+ 2012 Depression Screening 12/09/2019 12/09/2018 Covid-19 Vaccine (5 - 2024-2 6 season) 2025 03/06/2022, 07/16/2021, 01/17/2021, Additional history exists Influenza Vaccine (#1) 2025 , 06/24/2020, 09/21/2019, Additional history exists Fall Risk Assessment 05/03/2026 05/03/2025, 06/14/2019, 12/09/2018 Osteoporosis Screening-Bone Density Scan 08/03/2027 08/03/2025, 04/17/2022, 11/18/2018 Pneumococcal vaccine 65+ Completed 018, 09/04/2016, 11/24/2014, [...] lifestyle strategies and compensatory methods as needed Medical Devices Implanted Type Area Cookie Padder Device Identifier Shelf Expiration Date Model / Serial / Lot [employer] Device 6fr Closure Celt Acd Vascular Sterile Latex Free Disposable [facility] - [id number] Implanted:Qty: 1 on 03/18/2025 at [facility] [employer] 07/11/2027 [facility] [id number] [facility] Embosphere Prefill Saline Syringe Compressible Nonaggregate S220gh - [id number] Implanted:Qty: 1 on 03/18/2025 at [facility] [employer] 07/27/2027 S220GH / / [id number] [facility] Systems Embosphere Prefill Saline Syringe Compressible Nonaggregate S220 - [id number] Implanted:Qty: 1 on 05/03/2025 by Josh Martinez MD at [facility] [employer] 09/21/2027 S220GH / / [id number] [employer] Device 6fr Closure Celt Acd Vascular Sterile Latex Free Disposable [facility]06 - [id number] Implanted:Qty: 1 on 05/03/2025 by Josh Martinez MD at [facility] [employer] 11/02/2027 [facility] [id number] Procedures Procedure Name Priority Date/Time Associated Diagnosis Comments DEXA AXIAL SKELETON BONE DENSITY 1 OR MORE SITES Schedule Routine, Read Routine (OP Routine) 08/03/2025 11:57 AM CDT Rheumatoid arthritis of multiple sites with negative rheumatoid factor (HCC) Primary osteoarthritis involving multiple joints Encounter for medication monitoring Encounter for long-term (current) use of medications Age-related osteoporosis without current pathological fracture IR FOLLOW UP Schedule Routine, Read Routine (OP Routine) 06/21/2025 2:45 PM CDT Primary osteoarthritis of left knee SCAN - LABS 06/20/2025 HM MAMMOGRAPHY Routine 07/13/2019 from Last 3 Months or Most Recently Relevant to Health Maintenance Results * Dexa Axial Skeleton Bone Density 1 or 2 Site (08/03/2025 11:57 AM CDT) Anatomical Region Laterality Modality Body N/A Digital Radiogra phy 08/03/2025 12:0 6 PM CDT Impressions 08/03/2025 12:06 PM CDT 1. The bone mineral density of the lumbar spine is normal. There has been a statistically significant increase in bone mineral density since the baseline examination of 04/17/2022. 2. The bone mineral density of the left femoral neck is normal. 3. The bone mineral density of the left total hip is normal. There has been a statistically significant increase in bone mineral density since the baseline examination of 04/17/2022. 4. Overall, the above findings are normal by WHO criteria. 5. Calculation of fracture risk using the FRAX model is not appropriate in certain settings. It was not performed in this patient because the patient met the following condition(s): normal bone density. General comments regarding interpretation of bone density measurements: A) In children, premenopausal woman and males under age 50 not at increased risk for fractures only Z-scores, not T-scores are used to indicate risk. A Z-score above -2.0 is defined as within the expected range for age and Z-score at or less than -2.0 is below the expected range for age. A Z-score below the expected range for age in a patient with recent fractures and/or chronic corticosteroid treatment is consistent with a diagnosis of osteoporosis. B) In post menopausal women and males over 50, comparison of the measured bone mineral density with the average value in young normal subjects (the T-score) has been found to be useful in assessing fracture risk. Fracture risk approximately doubles for each 1.0 standard deviation (SD) in individual's hip or spine bone mineral density is below the average value of young normal subjects. The World Health Organization (WHO) has defined T-scores of -1.0 to -2.5 as diagnostic of low bone mass (OSTEOPENIA), and T-scores of -2.5 or lower to be diagnostic of OSTEOPOROSIS, based on the site of lowest bone density. Note that there will be a change in reporting format and reference databases as patients move from the younger population (group A) to the older population (group B) The National Osteoporosis Foundation (www.nof.org) recommends adequate intake of calcium and vitamin D and regular weight-bearing exercise in all patients. They recommend pharmacologic treatment in postmenopausal women and men age 50 and older presenting with any of the followin) Osteoporosis, after appropriate evaluation to exclude secondary causes. 2) A hip or vertebral (clinical or radiographic) fracture, regardless of the bone density. 3) Low bone mass (Osteopenia) and one or more of: other prior fractures, secondary causes associated with high risk of fracture (such as glucocorticoid use or total immobilization), or computed high risk of fracture (10-yr probability of hip fracture >= 3% or a 10-yr probability of any major osteoporosis-related fracture >= 20% based on the [place].-adapted WHO algorithm), available at http://www.shef.ac.uk/FRAX). The radiology attending physician has personally reviewed this study, and had reviewed and/or edited this written report and agrees with it. Electronically signed by: Osvaldo Perkins M.D. Narrative 08/03/2025 12:06 PM CDT BONE DENSITOMETRY OF THE SPINE AND HIP DATE OF STUDY: 08/03/2025 HISTORY: 80-year-old postmenopausal woman. FINDINGS (SPINE): The bone mineral density of L1-L4 was assessed by dual-energy x-ray absorptiometry. The average bone mineral density within this region is 0.978 gm/sq-cm. This is 2.0 standard deviations above the mean of the average bone mineral density for age- and gender-matched subjects (the Z-score). It is 0.6 standard deviations below the mean peak bone mineral density in young adults (the T-score). FINDINGS (FEMORAL NECK): The bone mineral density of the left femoral neck was assessed by dual-energy x-ray absorptiometry. The average bone mineral density within the femoral neck region is 0.903 gm/sq-cm. This is 2.7 standard deviations above the mean of the average bone mineral density for age- and gender-matched subjects (the Z-score). It is 0.5 standard deviations above the mean peak bone mineral density in young adults (the T-score). FINDINGS (TOTAL HIP): The bone mineral density of the left hip was assessed by dual-energy x-ray absorptiometry. The average bone mineral density within the total hip region is 0.958 gm/sq-cm. This is 2.1 standard deviations above the mean of the average bone mineral density for age- and gender-matched subjects (the Z-score). It is 0.1 standard deviations above the mean peak bone mineral density in young adults (the T-score). SUMMARY OF CURRENT RESULTS: Region BMD T-score Z-score AP Spine (L1-L4) 0.978 -0.6 2.0 Femoral Neck (Left) 0.903 0.5 2.7 Total Hip (Left) 0.958 0.1 2.1 COMPARISON WITH PREVIOUS RESULTS Region Age BMD T-score BMD Change BMD Change Exam Date g/cm2 vs Baseline vs Previous AP Spine (L1-L4) 08/03/2025 80 0.978 -0.6 0.094 (10.6%)* 0.094 (10.6%)* 04/17/2022 77 0.884 -1.5 Total Hip(Left) 08/03/2025 80 0.958 0.1 0.114 (13.5%)* 0.114 (13.5%)* 04/17/2022 77 0.844 -0.8 *Denotes significance at 95% confidence level Procedure Note Osvaldo Perkins MD - 08/03/2025 BONE DENSITOMETRY OF THE SPINE AND HIP DATE OF STUDY: 08/03/2025 HISTORY: 80-year-old postmenopausal woman. FINDINGS (SPINE): The bone mineral density of L1-L4 was assessed by dual-energy x-ray absorptiometry. The average bone mineral density within this region is 0.978 gm/sq-cm. This is 2.0 standard deviations above the mean of the average bone mineral density for age- and gender-matched subjects (the Z-score). It is 0.6 standard deviations below the mean peak bone mineral density in young adults (the T-score). FINDINGS (FEMORAL NECK): The bone mineral density of the left femoral neck was assessed by dual-energy x-ray absorptiometry. The average bone mineral density within the femoral neck region is 0.903 gm/sq-cm. This is 2.7 standard deviations above the mean of the average bone mineral density for age- and gender-matched subjects (the Z-score). It is 0.5 standard deviations above the mean peak bone mineral density in young adults (the T-score). FINDINGS (TOTAL HIP): The bone mineral density of the left hip was assessed by dual-energy x-ray absorptiometry. The average bone mineral density within the total hip region is 0.958 gm/sq-cm. This is 2.1 standard deviations above the mean of the average bone mineral density for age- and gender-matched subjects (the Z-score). It is 0.1 standard deviations above the mean peak bone mineral density in young adults (the T-score). SUMMARY OF CURRENT RESULTS: Region BMD T-score Z-score AP Spine (L1-L4) 0.978 -0.6 2.0 Femoral Neck (Left) 0.903 0.5 2.7 Total Hip (Left) 0.958 0.1 2.1 COMPARISON WITH PREVIOUS RESULTS Region Age BMD T-score BMD Change BMD Change Exam Date g/cm2 vs Baseline vs Previous AP Spine (L1-L4) 08/03/2025 80 0.978 -0.6 0.094 (10.6%)* 0.094 (10.6%)* 04/17/2022 77 0.884 -1.5 Total Hip(Left) 08/03/2025 80 0.958 0.1 0.114 (13.5%)* 0.114 (13.5%)* 04/17/2022 77 0.844 -0.8 *Denotes significance at 95% confidence level IMPRESSION: 1. The bone mineral density of the lumbar spine is normal. There has been a statistically significant increase in bone mineral density since the baseline examination of 04/17/2022. 2. The bone mineral density of the left femoral neck is normal. 3. The bone mineral density of the left total hip is normal. There has been a statistically significant increase in bone mineral density since the baseline examination of 04/17/2022. 4. Overall, the above findings are normal by WHO criteria. 5. Calculation of fracture risk using the FRAX model is not appropriate in certain settings. It was not performed in this patient because the patient met the following condition(s): normal bone density. General comments regarding interpretation of bone density measurements: A) In children, premenopausal woman and males under age 50 not at increased risk for fractures only Z-scores, not T-scores are used to indicate risk. A Z-score above -2.0 is defined as within the expected range for age and Z-score at or less than -2.0 is below the expected range for age. A Z-score below the expected range for age in a patient with recent fractures and/or chronic corticosteroid treatment is consistent with a diagnosis of osteoporosis. B) In post menopausal women and males over 50, comparison of the measured bone mineral density with the average value in young normal subjects (the T-score) has been found to be useful in assessing fracture risk. Fracture risk approximately doubles for each 1.0 standard deviation (SD) in individual's hip or spine bone mineral density is below the average value of young normal subjects. The World Health Organization (WHO) has defined T-scores of -1.0 to -2.5 as diagnostic of low bone mass (OSTEOPENIA), and T-scores of -2.5 or lower to be diagnostic of OSTEOPOROSIS, based on the site of lowest bone density. Note that there will be a change in reporting format and reference databases as patients move from the younger population (group A) to the older population (group B) The National Osteoporosis Foundation (www.nof.org) recommends adequate intake of calcium and vitamin D and regular weight-bearing exercise in all patients. They recommend pharmacologic treatment in postmenopausal women and men age 50 and older presenting with any of the followin) Osteoporosis, after appropriate evaluation to exclude secondary causes. 2) A hip or vertebral (clinical or radiographic) fracture, regardless of the bone density. 3) Low bone mass (Osteopenia) and one or more of: other prior fractures, secondary causes associated with high risk of fracture (such as glucocorticoid use or total immobilization), or computed high risk of fracture (10-yr probability of hip fracture >= 3% or a 10-yr probability of any major osteoporosis-related fracture >= 20% based on the [place].-adapted WHO algorithm), available at http://www.shef.ac.uk/FRAX). The radiology attending physician has personally reviewed this study, and had reviewed and/or edited this written report and agrees with it. Electronically signed by: Osvaldo Perkins M.D. Ly Vivar MD IM DXA PROCEDURES Final Result * Interventional Radiology Follow-up (06/21/2025 2:45 PM CDT) Anatomical Region Laterality Modality N/A X-Ray Angiograph y 06/21/2025 3:52 PM CDT Impressions 06/21/2025 3:52 PM CDT She reports 50-75% improvement in her left knee and approximately 40% improvement in her right knee. KOOS and WOMAC scores have been uploaded via the media tab Complete details regarding this office visit can be found in Epic under the Notes tab. Electronically signed by: Josh Martinez M.D. Narrative 06/21/2025 3:52 PM CDT EXAMINATION: [facility] INTERVENTIONAL RADIOLOGY CLINIC VISIT HISTORY: 80-year-old female status post bilateral geniculate artery embolization. Procedure Note Josh Martinez MD - 06/21/2025 EXAMINATION: [facility] INTERVENTIONAL RADIOLOGY CLINIC VISIT HISTORY: 80-year-old female status post bilateral geniculate artery embolization. IMPRESSION: She reports 50-75% improvement in her left knee and approximately 40% improvement in her right knee. KOOS and WOMAC scores have been uploaded via the media tab Complete details regarding this office visit can be found in Epic under the Notes tab. Electronically signed by: Josh Martniez M.D. us Josh Martinez MD IMG IR PROCEDURES Final R esult * SCAN - LABS (06/20/2025) us Provider Scanning Final Result * MAMMOGRAPHY (07/13/2019) Mammogram Normal Comment:per pt report Historical Provider HEALTH MAINTENANCE Final Result from Last 3 Months or Most Recently Relevant to Health Maintenance Insurance [facility] MEDICARE [facility] MEDICARE [facility] [place] MEDICARE [facility] [place] Advance Directives For more information, please contact: [phone] * Full Code (Latest Code Status on File) Date Activated Date Inactivated Comments 01/24/2021 4:55 PM 01/25/2021 6:19 PM Care Teams Printing Plate Setter Relationship Specialty Start Date End Date Anival Diop MD [address] [place] [address] PCP - General 02/21/17 Alexandru Manley MD [address] [place], [place] [id number] Consulting Physician Cardiology 08/01/21
--- OUTSIDE RECORDS SUMMARY | 2025-09-08 11:55 | XMS_ITS | Encounter Summary ---
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
--- OUTSIDE RECORDS SUMMARY | 2025-09-08 11:56 | XMS_ITS | Encounter Summary ---
Author Organization [facility] Address [address] [place] [address] Phone Care Team Providers Care Production Mechanic Tin Cans Name Role Phone Anival Diop MD Primary Care Provider [phone] Alexandru Manley MD Unavailable [phone] Encounter Details Date Type Department Care Team (Late st Contact Info) Description 02/25/2018 Orders Only [facility] ProviderLulu MD [address] [place] [address] Social History Tobacco Use Types Packs/Day Years Used Date Smoking Tobacco: Never Smokeless Tobacco: Never Alcohol Use Standard Drinks/Week Comments No 0 (1 standard drink = 0.6 oz pur e alcohol) Comments Unknown Sex and Gender Information Value Date Recorded Sex Assigned at Not on file 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 us Historical Provider LAB BLOOD ORDERABLES Maryanne l [...] documented as of this encounter Care Teams Production Mechanic Tin Cans Relationship Specialty Start Date End Date Anival Diop MD [address] [place] [address] PCP - General 02/21/17 Alexandru Manley MD [address] [place] [address] Consulting Physician Cardiology 08/01/21 documented as of this encounter
--- OUTSIDE RECORDS SUMMARY | 2025-09-08 11:56 | XMS_ITS | Encounter Summary ---
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
--- OUTSIDE RECORDS SUMMARY | 2025-09-08 11:56 | XMS_ITS | Encounter Summary ---
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
--- OUTSIDE RECORDS SUMMARY | 2025-09-08 11:56 | XMS_ITS | Encounter Summary ---
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
[2025-09-08 12:03] LABS: Thyroid Stimulating Hormone 1.320 uIU/mL (0.465-4.680)
== END 2025-09-08 10:19 | disposition home or self-care (01) ==
LOC: CHSLAB 10:22
PROVIDERS: PCP Internal Medicine; Visit Provider Internal Medicine
DX: R73.01 Impaired fasting glucose (principal); I10 Essential (primary) hypertension; E78.2 Mixed hyperlipidemia; M81.0 Age-related osteoporosis without current pathological fracture; E03.4 Atrophy of thyroid (acquired); M06.9 Rheumatoid arthritis, unspecified
CPT/HCPCS: 36415; 80053; 80061; 81003; 82550; 83036; 84439; 84443; 85025